=== PATIENT | female | born 1940 | race Caucasian/White ===

== ENCOUNTER 2020-09-24 09:26 | Emergency (ER) | payer MEDICARE, MEDICAID, SELFPAY ==
[2020-09-24 09:53] VITALS: BP 153/70; PULSE 72; RESP 16; TEMP 36.8; O2SAT 97; BMI 20.2
--- NOTE | 2020-09-24 09:56 | XR_ITS ---
EXAMINATION: XR FOOT, RIGHT CLINICAL INFORMATION: Heel pain. COMPARISON: None TECHNIQUE: AP, lateral, and oblique views of the right foot. FINDINGS: There are large calcaneal heel enthesophytes. No retrocalcaneal spurs seen. The ankle mortise and subtalar joints are normal. There is a subtle lucency traversing the navicular bone consistent with nondisplaced fracture. Subtle lucency seen traversing the calcaneum likely questionable calcaneal fracture. The intertarsal and tarsometatarsal joint space is maintained. There is small spur along the tarsonavicular joint. The soft tissues are normal. XR/XR foot RT min 3V IMPRESSION: Moderate to large calcaneal heel enthesophytes. There is a nondisplaced fracture involving the cuboid bone. The ankle mortise and subtalar joints are normal.
--- NOTE | 2020-09-24 11:00 | CT_ITS ---
EXAMINATION: CT FOOT WITHOUT CONTRAST, RIGHT CLINICAL INFORMATION: Question fractures on plain film navicular, calcaneus. COMPARISON: Radiographs right foot 09/24/2020 TECHNIQUE: Noncontrast CT through the right ankle and foot is performed. Additional reformatted images are generated on the CT workstation and uploaded to PACS. This CT examination was performed using dose optimization techniques as appropriate, variously including the following: *Automated exposure control *Adjustment of mA and/or kV according to patient size (this includes techniques or standardized protocols for targeted exams where dose is matched to indication/reason for exam; i.e. extremities or head) *Use of iterative reconstruction technique DLP: 365 mGy-cm FINDINGS: Exam is limited by some motion artifact. The malleoli are intact and the ankle mortise is symmetric. The talar dome shows no osteochondral lesion. The subtalar joint and subtalar facets are unremarkable. There are bulky posterior and plantar calcaneal spurs. The retrocalcaneal recess is preserved. There is some blurring/motion artifact mid foot. Accentuated trabecular marking present superior aspect tarsal navicular. Nondisplaced fracture cannot be completely excluded. There is no adjacent soft tissue swelling. Recommend correlation with patient's symptoms and clinical exam. The tarsal metatarsal articulations appear in alignment. No Lisfranc subluxation or visible fracture. There is accentuated trabecular markings head first metatarsal without cortical disruption to suggest fracture. CT/CT foot RT wo con IMPRESSION: 1. Probable accentuated trabecular markings superior aspect tarsal navicular. No adjacent soft tissue swelling. Nondisplaced fracture cannot be completely excluded. Recommend correlation with patient's symptoms and clinical exam. 2. Bulky calcaneal spurring. Subtalar joint unremarkable. No calcaneal fracture.
--- NOTE | 2020-09-24 11:01 | ED_ITS ---
HPI - Extremity Injury (Lower) General Chief Complaint: Extremity Injury, Lower Stated Complaint: heel pain Time Seen by Provider: 09/24/20 09:56 Source: family Mode of arrival: wheelchair History of Present Illness HPI Narrative: 80-year-old female with past medical history of diabetes, hyperlipidemia, hypertension, CVA, wheelchair bound, brought to ED by for right heel pain/bruising x1 week. History obtained from son, per son patient hit heel on wheelchair 1 week ago, and has been complaining of pain since. Of note son reports patient with a few prior falls at home with [employer], falling from standing, no fall from height, no head trauma or LOC. Son denies pain/injury to other area. MD complaint: foot injury Related Data Home Medications Medication Instructions Recorded Confirmed amlodipine 2.5 mg tablet 2.5 mg PO DAILY 08/20/20 08/20/20 aspirin 81 mg tablet,delayed 81 mg PO DAILY 08/20/20 08/20/20 release atorvastatin 40 mg tablet mg PO 08/20/20 08/20/20 cetirizine 10 mg tablet 10 mg PO DAILY PRN 08/20/20 08/20/20 glipizide 2.5 mg tablet, extended 2.5 mg PO DAILY 08/20/20 08/20/20 release 24 hr metoprolol succinate 100 mg 150 mg PO DAILY 08/20/20 08/20/20 tablet,extended release 24 hr mirabegron 25 mg tablet,extended 25 mg PO DAILY 08/20/20 08/20/20 release 24 hr miscellaneous medical supply 1 ea MISCELLANEOUS ea 09/09/20 Previous Rx's Medication Instructions Recorded diaper,brief,adult,disposable #14 ea 09/21/20 miscellaneous medical supply 1 ea MISCELLANEOUS DAILY 30 Days 09/21/20 #3 ea Allergies Allergy/AdvReac Type Severity Reaction Status Date / Time No Known Allergies Allergy Unverified 06/04/20 19:28 [No Known Allergies*] Review of Systems Review of Systems: Constitutional: No Weight loss, No Fever, No Chills Gastrointestinal: No Nausea, No Vomiting, No Abdominal pain Musculoskeletal: +righht heel pain, No Myalgias, + right heel swelling Skin: +bruising to heel Neuro: No head trauma, no LOC Review of systems limited due to history obtained from Son Yes all other systems are reviewed and are negative [facility] Past Medical History Source: obtained from family Medical History (Updated 09/24/20 @ 15:50 by TISHA Aguirre) Diabetes High cholesterol Hypertension Stroke Social History Social History Advance Directives: No Advance Directives Information Provided: Yes Physical Exam Vital Signs: Vital Signs: Last Vital Signs Temp 97.0 F 09/24/20 12:47 Pulse 75 09/24/20 12:47 Resp 14 09/24/20 12:47 BP 148/80 H 09/24/20 12:47 Pulse Ox 97 09/24/20 12:47 Body Mass Index 20.2 Const: General: cooperative and healthy appearing Limitations: physical limitations and wheelchair HENMT: Head: Yes normal to inspection Ears: hearing grossly normal bilaterally General nose exam: Normal external nose present Face and sinus: Yes normal facial exam Eyes: General: appearance normal, both eyes and all related structures EOM: EOMs intact bilaterally Neck: Neck: Yes normal visual inspection Resp: Effort & Inspection: normal respiratory effort, no stridor and not tachypneic Cardio: Rate: regular rate Peripheral pulses: dorsalis pedis present GI: Inspection: Yes normal to inspection Palpation (GI): Soft to palpation and nontender Back/Spine/Pelvis: Other: No midline cervical/thoracic/lumbar spinous tenderness Skin: Rashes: no rashes Extrem: Other: Right heel with notable swelling/ecchymosis vs blood blister. No fluctuance or induration. Tender to palpation. Neurovascular intact. No appreciable deformity Course Course Course Narrative: * X-ray showing moderate to large calcaneal heel enthesophytes, nondisplaced fracture involving the cuboid bone, and questionable calcaneal fracture > will obtain dry CT foot for further evaluation -1350--CT showing:CT foot RT wo con IMPRESSION: 1. Probable accentuated trabecular markings superior aspect tarsal navicular. No adjacent soft tissue swelling. Nondisplaced fracture cannot be completely excluded. Recommend correlation with patient's symptoms and clinical exam. 2. Bulky calcaneal spurring. Subtalar joint unremarkable. No calcaneal fracture * Will place patient in bulky posterior short-leg splint in the ED to follow-up with orthopedics. Patient is to be nonweightbearing on right lower extremity. This was discussed with son, patient has wheelchair at home/does not normally ambulate MDM - Extremity Injury (Lower) MDM Narrative Medical decision making narrative: 80-year-old female with past medical history of diabetes, hyperlipidemia, hypertension, CVA, wheelchair bound, brought to ED by for right heel pain/bruising x1 week. On exam VSS, NAD, right heel with notable swelling/yellow ecchymosis/blood blister. Concern for underlying fracture vs pressure ulcer vs ?Osteo. Low concern for abscess Plan: X-ray, reassess Discharge Plan Discharge Clinical Impression: Fx navicular, foot-closed Qualifiers: Encounter type: initial encounter Fracture alignment: nondisplaced Laterality: right Qualified Code(s): S92.254A - Nondisplaced fracture of navicular [scaphoid] of right foot, initial encounter for closed fracture Patient Disposition: Home, Self-Care Instructions: Foot Fracture in Adults (ED) Prescriptions: No Action (DME) diaper,brief,adult,disposable Misc See Rx Instructions .ROUTE .MEDSUPPLY Qty: 14 RF: 0 miscellaneous medical supply Misc 1 ea miscellaneous DAILY 30 Days Qty: 3 RF: 0 amlodipine 2.5 mg tablet 2.5 mg PO DAILY RF: 0 aspirin 81 mg tablet,delayed release (DR/EC) 81 mg PO DAILY RF: 0 atorvastatin 40 mg tablet PO RF: 0 cetirizine 10 mg tablet 10 mg PO DAILY PRN (Reason: allergies) RF: 0 glipizide 2.5 mg tablet extended release 24hr 2.5 mg PO DAILY RF: 0 metoprolol succinate 100 mg tablet extended release 24 hr 150 mg PO DAILY RF: 0 mirabegron 25 mg tablet extended release 24 hr 25 mg PO DAILY RF: 0 Referrals: Dominick Gupta MD [Physician] - 1 week Iesha Smith PA [[facility]] - 1 week
[2020-09-24 12:47] VITALS: BP 148/80; PULSE 75; RESP 14; TEMP 36.1; O2SAT 97
--- NOTE | 2020-09-24 12:49 | PC.NURSE ---
pts son remains at bedside
[2020-09-24] MEDS: Acetaminophen 325 MG TABLET 650 MG PO (14:45)
== END 2020-09-24 16:05 | disposition home or self-care (01) ==
PROVIDERS: Emergency Provider Emergency Medicine Emergency Medical Services; PCP Nurse Practitioner Family
DX: S92.254A Nondisplaced fracture of navicular [scaphoid] of right foot, initial encounter for closed fracture (principal); W01.0XXA Fall on same level from slipping, tripping and stumbling without subsequent striking against object, initial encounter; Z91.81 History of falling; Z99.3 Dependence on wheelchair; Y93.9 Activity, unspecified; Y92.019 Unspecified place in single-family (private) house as the place of occurrence of the external cause; Y99.9 Unspecified external cause status
CPT/HCPCS: 29515; 73630; 73700; 99284

== ENCOUNTER → 2020-10-02 13:22 | Outpatient (BNVA) | payer MEDICARE, MEDICAID, SELFPAY | PROVIDERS: Visit Provider Physician Assistant | DX: S92.901A Unspecified fracture of right foot, initial encounter for closed fracture (principal) | CPT/HCPCS: 99202 ==

== ENCOUNTER 2020-10-27 08:56 | Emergency (ER) | payer MEDICARE, MEDICAID, SELFPAY ==
[2020-10-27] VITALS (13 sets, daily range): BP systolic 114–161; BP diastolic 53–90; PULSE 70–86; RESP 15–21; TEMP 36–36.9; O2SAT 95–99; BMI 16.3
--- NOTE | ~2020-10-27 | XR_ITS ---
EXAMINATION: XR CHEST CLINICAL INFORMATION: Cough. Evaluate for pneumonia. COMPARISON: Previous chest x-ray June 2018 TECHNIQUE: 2 views of the chest were obtained. FINDINGS: The cardiac silhouette is slightly enlarged but stable. The thoracic aorta appears tortuous and may be ectatic but appears unchanged. There are increased central hilar lung markings on the AP view. This is not appreciated on the lateral view and may be related to light film technique. The lungs are otherwise clear. There is no pleural effusion or pneumothorax. There are degenerative changes of the spine. XR/XR chest 2V IMPRESSION: Stable enlargement of the cardiac silhouette and tortuous possibly ectatic thoracic aorta. Increased central lung and hilar markings on the AP view. This is not appreciated on the lateral view and may be related to light film technique.
--- NOTE | 2020-10-27 09:33 | ECG_ITS ---
Test Reason : WOUND CHECK Blood Pressure : / mmHG Vent. Rate : 080 BPM Atrial Rate : 083 BPM P-R Int : 000 ms QRS Dur : 098 ms QT Int : 442 ms P-R-T Axes : 000 -28 263 degrees QTc Int : 509 ms Baseline artifact Likely sinus rhythm Moderate voltage criteria for LVH, may be normal variant Inferior infarct (cited on or before 29-JUN-2018) Cannot rule out Anteroseptal infarct , age undetermined T wave abnormality, consider lateral ischemia Abnormal ECG When compared with ECG of 29-JUN-2018 11:30, No significant changes seen Referred By: Jordana Goetz Electronically Signed By:ROBINSON FABIAN
[2020-10-27 09:51] LABS: OBS Int Ctl Valid YES; OBS1 NEG (NEG)
--- NOTE | 2020-10-27 10:25 | ED.GENADULT ---
HPI - General Adult General Chief complaint: General Medical Stated complaint: abnormal labs Time Seen by Provider: 10/27/20 09:25 Source: family Mode of arrival: wheelchair Limitations: language barrier and altered mental status (confused at baseline ) History of Present Illness HPI narrative: 80-year-old female with a past history of dementia with bowel and bladder incontinence, wheelchair-bound, diabetes, high cholesterol, hypertension, pressure ulcer, stage 4, stroke here with reports of abnormal labs. Per family the patient had labs ordered by the primary care doctor and have these completed on October 23. Called today and referred to the emergency department for low hemoglobin. Per family the patient has unspecified cancer on the blood which was diagnosed about 2 years ago by her primary care doctor at [place]. She has not been seen by anyone else for this and has not followed up on this. She does not take any anticoagulation. Patient able to ride the history. Son tells me that she has not had any black or bloody stools, hematuria or hemoptysis. No previous history of requiring a blood transfusion. Related Data Home Medications Medication Instructions Recorded Confirmed amlodipine 2.5 mg tablet 2.5 mg PO DAILY 08/20/20 10/12/20 aspirin 81 mg tablet,delayed 81 mg PO DAILY 08/20/20 10/12/20 release atorvastatin 40 mg tablet mg PO 08/20/20 10/12/20 cetirizine 10 mg tablet 10 mg PO DAILY PRN 08/20/20 10/12/20 glipizide 2.5 mg tablet, extended 2.5 mg PO DAILY 08/20/20 10/12/20 release 24 hr metoprolol succinate 100 mg 150 mg PO DAILY 08/20/20 10/12/20 tablet,extended release 24 hr Previous Rx's Medication Instructions Recorded miscellaneous medical supply #1 ea 10/06/20 air mattress #1 ea 10/14/20 chloroxylenol 0.5 % topical pads 1 pad TOPICAL .every 4 hours PRN 10/14/20 30 Days #648 ea diaper,brief,adult,disposable #120 ea 10/14/20 disposable gloves #200 ea 10/14/20 food supplemt, lactose-reduced 1 ea PO BID 30 Days #3792 ml 10/14/20 honey 80 % topical gel 1 appl TOPICAL DAILY 30 Days #44 ml 10/14/20 hydrocolloid dressing 6 X 6 #30 ea 10/14/20 incontinence pad, liner, disp #96 ea 10/14/20 miscellaneous medical supply #1 ea 10/14/20 diaper,brief,adult,disposable #56 ea 10/19/20 mirabegron 25 mg tablet,extended 25 mg PO DAILY 90 Days #90 tab 10/20/20 release 24 hr hydrocolloid dressing 6 X 6 #30 ea 10/21/20 Allergies Allergy/AdvReac Type Severity Reaction Status Date / Time No Known Allergies Allergy Verified 10/12/20 16:57 [No Known Allergies*] Review of Systems Review of Systems: Yes Unobtainable due to mental status (confused at baseline ) Neurologic: Denies Abnormal speech present and Reports confusion Psychiatric: Psychiatric: Reports confusion PMFSH Past Medical History Source: old records reviewed and nursing notes reviewed Medical History Dementia Diabetes Dyslipidemia Fecal incontinence Hypertension Malnutrition Pressure ulcer, stage 4 Stroke Ulcer Ulcer of sacral region, stage 3 Urinary incontinence Social History Social History Alcohol intake: former Smoking Status: Never smoker Advance Directives: No Advance Directives Information Provided: No Physical Exam Vital Signs: Vital Signs: Last Vital Signs Temp 98.4 F 10/27/20 15:58 Pulse 70 10/27/20 15:58 Resp 20 10/27/20 15:58 BP 161/77 H 10/27/20 15:58 Pulse Ox 95 10/27/20 14:16 Body Mass Index 16.3 Const: General: comfortable and confusion Orientation/consciousness: confusion Limitations: altered mental status and wheelchair HENMT: Head: Yes normal to inspection Ears: hearing grossly normal bilaterally General nose exam: Normal external nose present Face and sinus: Yes normal facial exam Mouth: Normal oral and palatal mucosa present Throat: Yes posterior oropharynx normal Eyes: General: appearance normal, both eyes and all related structures Pupils: Equal, round and reactive pupils present Neck: Neck: Yes normal visual inspection Chest: Chest palpation & inspection: normal inspection of the chest Resp: Other: Bilateral expiratory wheezes. Effort & Inspection: normal respiratory effort Cardio: Rate: regular rate Rhythm: regular rhythm Peripheral pulses: Peripheral pulses 2+ throughout GI: Inspection: Yes normal to inspection Palpation (GI): Soft to palpation and nontender Auscultation: normal bowel sounds Rectal Exam - Female: visual inspection normal (incontinent of brown stool ) Back/Spine/Pelvis: Thoracic/Lumbar Spine: thoracic and lumbar spine normal to inspection Skin: Other: Sacral wound noted General skin exam: no rashes or lesions noted Neuro: Other: Left hand contracted (unable to assess strength). RUE moves independetely. Left leg 2/5, right leg 4/5 General: confusion and Unable to assess gait Cranial nerves: Yes Equal, round and reactive pupils present Speech: No Abnormal speech present Gait exam (Neuro): Unable to assess gait Extrem: General: Yes normal to inspection Course Course Course Narrative: 80-year-old female sent here for abnormal hemoglobin which was drawn as outpatient. Per family history of unspecified blood cancer. No reports of active bleeding or black or bloody stools. No anticoagulation. Vital signs stable. Patient is confused but this appears to be her baseline per family. Reviewed labs from [facility]. Hemoglobin 6.2. Hematocrit 19.9. Spoke to elana Gibbons who signed blood consent. Plan to repeat labs, check a type and screen, EKG. On exam patient has some wheezing throughout. No concern for COVID from family. Will check chest x-ray and COVID test. 1145-Hgb/HCT 6.3/21.0. 2 units PRBC ordered. Will discuss with hematology. 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 She has no active signs of bleeding in her hemoglobin and hematocrit are stable when compared to her labs 4 days ago. Discussed with family. They do not wish for the patient to be admitted and I am not sure that that would be beneficial for the patient at this time. Plan to transfuse [address] Guevara from Hematology who will follow up outpatient with them. Plan for discharge post PRBC. 1700-Son was updated on plan of care. Sign out to Zully JOHNSON pending repeat CBC post 2nd unit of PRBC. Medical Decision Making Lab Data Result diagrams: 10/27/20 10:34 10/27/20 10:34 Labs: Lab Results 10/27/20 10/27/20 10/27/20 Range/Units 09:38 10:17 10:34 WBC 8.1 (4.8-10.8) X10*3/uL RBC 2.30 L (4.20-5.50) X10*6/uL Hgb 6.3 L* (12.0-16.0) g/dl Hct 21.0 L* (37-47) % MCV 91.3 (80-98) fL MCH 27.4 (27.0-33.0) pg MCHC 30.0 L (31.0-35.0) g/dl RDW 22.7 H (11.0-16.0) % Plt Count 212 (160-400) X10*3/uL MPV 10.1 (9.4-12.3) fL Immature Gran % (Auto) 0.9 H (0.0-0.4) % Neut % (Auto) 51.5 (45-73) % Lymph % (Auto) 43.6 H (20-40) % [place] % (Auto) 3.1 (2-11) % Eos % (Auto) 0.7 (0-4) % Baso % (Auto) 0.2 (0-2) % Lymph # (Auto) 3.5 (1.2-4.9) X10*3/uL [place] # (Auto) 0.3 (0.1-1.2) X10*3/uL Eos # (Auto) 0.1 (0.0-0.4) X10*3/uL Baso # (Auto) 0.0 (0.0-0.2) X10*3/uL Abs Immat Gran (auto) 0.07 H (0.00-0.03) X10*3/uL Absolute Neuts (auto) 4.2 (2.0-8.3) X10*3/uL Absolute Nucleated RBC 0.020 H (0.0-0.012) X10*3/uL Nucleated RBC % (auto) 0.2 (0.0-0.2) /100WBC Smear Tech's Comments VERIFIED PT (10.8-13.0) SEC INR (0.9-1.1) Sodium (135-145) mmol/L Potassium (3.3-5.1) mmol/L Chloride (96-108) mmol/L Carbon Dioxide (22-29) mmol/L Anion Gap (12-20) BUN (9-16) mg/dL Creatinine (0.5-1.4) mg/dL Estim Creat Clear Calc Estimated GFR Random Glucose (60-115) mg/dL Calcium (8.4-10.2) mg/dL Total Bilirubin (0.0-1.0) mg/dL Direct Bilirubin (0.0-0.5) mg/dL AST (5-31) U/L ALT (0-31) U/L Alkaline Phosphatase (39-117) U/L Total Protein (6.5-8.0) g/dL Albumin (3.5-5.0) g/dL Stool Occult Blood NEG (NEG) COVID-19 ([facility]) Negative (Negative) COVID-19 Clin Com See Note Blood Type Antibody Screen Crossmatch 10/27/20 10/27/20 10/27/20 Range/Units 10:34 10:34 11:05 WBC (4.8-10.8) X10*3/uL RBC (4.20-5.50) X10*6/uL Hgb (12.0-16.0) g/dl Hct (37-47) % MCV (80-98) fL MCH (27.0-33.0) pg MCHC (31.0-35.0) g/dl RDW (11.0-16.0) % Plt Count (160-400) X10*3/uL MPV (9.4-12.3) fL Immature Gran % (Auto) (0.0-0.4) % Neut % (Auto) (45-73) % Lymph % (Auto) (20-40) % [place] % (Auto) (2-11) % Eos % (Auto) (0-4) % Baso % (Auto) (0-2) % Lymph # (Auto) (1.2-4.9) X10*3/uL [place] # (Auto) (0.1-1.2) X10*3/uL Eos # (Auto) (0.0-0.4) X10*3/uL Baso # (Auto) (0.0-0.2) X10*3/uL Abs Immat Gran (auto) (0.00-0.03) X10*3/uL Absolute Neuts (auto) (2.0-8.3) X10*3/uL Absolute Nucleated RBC (0.0-0.012) X10*3/uL Nucleated RBC % (auto) (0.0-0.2) /100WBC Smear Tech's Comments PT 15.9 H (10.8-13.0) SEC INR 1.3 H (0.9-1.1) Sodium 133 L (135-145) mmol/L Potassium 3.6 (3.3-5.1) mmol/L Chloride 104 (96-108) mmol/L Carbon Dioxide 26 (22-29) mmol/L Anion Gap 7 L (12-20) BUN 20 H (9-16) mg/dL Creatinine 0.87 (0.5-1.4) mg/dL Estim Creat Clear Calc 32.0 Estimated GFR > 60 Random Glucose 132 H (60-115) mg/dL Calcium 7.7 L (8.4-10.2) mg/dL Total Bilirubin 0.4 (0.0-1.0) mg/dL Direct Bilirubin 0.3 (0.0-0.5) mg/dL AST 50 H (5-31) U/L ALT 46 H (0-31) U/L Alkaline Phosphatase 208 H (39-117) U/L Total Protein 11.3 H (6.5-8.0) g/dL Albumin 2.2 L (3.5-5.0) g/dL Stool Occult Blood (NEG) COVID-19 ([facility]) (Negative) COVID-19 Clin Com Blood Type O Positive Antibody Screen NEGATIVE Crossmatch See Detail ECG Data Attestation: I personally reviewed and interpreted this ECG as follows: Interpretation: Artifact present unable to interpret all apsects of EKG. No ST changes. QT prolonged 509 Discharge Plan Discharge Clinical Impression: Anemia Patient Disposition: Home, Self-Care Instructions: Anemia (ED) Additional Instructions: Your mom's blood counts today were very low. She received 2 units of blood and her repeat counts were improved. She will need to follow-up outpatient with a urban planning teacher. I have spoken to Dr. Guevara and you will need to call her to set up an appointment. She is aware that you will be calling Prescriptions: No Action (DME) miscellaneous medical supply Misc See Rx Instructions .ROUTE .MEDSUPPLY Qty: 1 RF: 0 (DME) hydrocolloid dressing [Comfeel Plus Ulcer Dressing] 6 X 6 bandage See Rx Instructions .ROUTE .MEDSUPPLY Qty: 30 RF: 11 (DME) Briefs, Adult-Extra Large Misc See Rx Instructions .ROUTE .MEDSUPPLY Qty: 56 RF: 3 mirabegron 25 mg tablet extended release 24 hr 25 mg PO DAILY 90 Days Qty: 90 RF: 1 (DME) hydrocolloid dressing [Aquacel Extra] 6 X 6 bandage See Rx Instructions .ROUTE .MEDSUPPLY Qty: 30 RF: 11 MediHoney (honey) 80 % gel 1 appl topical DAILY 30 Days Qty: 44 RF: 6 (DME) Comfort Shield Adult Diaper Misc See Rx Instructions .ROUTE .MEDSUPPLY Qty: 120 RF: 11 (DME) incontinence pad, liner, disp Pad See Rx Instructions .ROUTE .MEDSUPPLY Qty: 96 RF: 11 (DME) disposable gloves [Biobrane Gloves Large] Misc See Rx Instructions .ROUTE .MEDSUPPLY Qty: 200 RF: 11 Sween Prep Wipes 0.5 % pads, medicated 1 pad topical .every 4 hours PRN (Reason: cleaning) 30 Days Qty: 648 RF: 11 (DME) miscellaneous medical supply Misc See Rx Instructions .ROUTE .MEDSUPPLY Qty: 1 RF: 0 (DME) air mattress twin See Rx Instructions .Route .MEDSUPPLY Qty: 1 RF: 0 Ensure Liquid 1 ea PO BID 30 Days Qty: 3792 RF: 11 amlodipine 2.5 mg tablet 2.5 mg PO DAILY RF: 0 aspirin 81 mg tablet,delayed release (DR/EC) 81 mg PO DAILY RF: 0 atorvastatin 40 mg tablet PO RF: 0 cetirizine 10 mg tablet 10 mg PO DAILY PRN (Reason: allergies) RF: 0 glipizide 2.5 mg tablet extended release 24hr 2.5 mg PO DAILY RF: 0 metoprolol succinate 100 mg tablet extended release 24 hr 150 mg PO DAILY RF: 0 Referrals: Chacorta Guevara MD [Physician] - 2 days Print Language: Ukrainian
[2020-10-27 10:40] LABS: COVID-19 Test Negative (Negative)
[2020-10-27 10:41] LABS: Basophils Percent Auto 0.2 % (0-2); Eosinophils Absolute Auto 0.1 X10*3/uL (0.0-0.4); Eosinophils Percent Auto 0.7 % (0-4); Imm Gran Abs Auto 0.07 X10*3/uL (0.00-0.03); Imm Gran Pct Auto 0.9 % (0.0-0.4); Lymphocytes Absolute Auto 3.5 X10*3/uL (1.2-4.9); Lymphocytes Percent Auto 43.6 % (20-40); MANUAL DIFF FLAG SCAN; Mean Corpuscular Hemoglobin 27.4 pg (27.0-33.0); Mean Corpuscular Volume 91.3 fL (80-98); Mean Platelet Volume 10.1 fL (9.4-12.3); Monocytes Absolute Auto 0.3 X10*3/uL (0.1-1.2); Monocytes Percent Auto 3.1 % (2-11); NRBC Pct Auto 0.2 /100WBC (0.0-0.2); Neutrophils Absolute Auto 4.2 X10*3/uL (2.0-8.3); Neutrophils Percent Auto 51.5 % (45-73); Platelet Count 212 X10*3/uL (160-400); Red Cell Distribution Width 22.7 % (11.0-16.0); SCAN SMEAR FLAG 1; White Blood Count 8.1 X10*3/uL (4.8-10.8)
[2020-10-27 10:43] LABS: Hemoglobin 6.3 g/dl (12.0-16.0)
[2020-10-27 10:49] LABS: INTERNATIONAL NORM RATIO 1.3 (0.9-1.1); Prothrombin Time 15.9 SEC (10.8-13.0)
[2020-10-27 11:08] LABS: Alanine Aminotransferase 46 U/L (0-31); Albumin Level 2.2 g/dL (3.5-5.0); Alkaline Phosphatase 208 U/L (39-117); Anion Gap 7 (12-20); Aspartate Amino Transferase 50 U/L (5-31); Bilirubin Direct 0.3 mg/dL (0.0-0.5); Bilirubin Total 0.4 mg/dL (0.0-1.0); Blood Urea Nitrogen 20 mg/dL (9-16); Calcium 7.7 mg/dL (8.4-10.2); Carbon Dioxide 26 mmol/L (22-29); Chloride 104 mmol/L (96-108); Estimated Glomerular Filt Rate > 60; Glucose Random 132 mg/dL (60-115); Potassium 3.6 mmol/L (3.3-5.1); Sodium 133 mmol/L (135-145)
[2020-10-27 11:14] LABS: SLIDE REVIEW VERIFIED
[2020-10-27 11:17] LABS: Total Protein 11.3 g/dL (6.5-8.0)
--- NOTE | 2020-10-27 12:55 | PC.NURSE ---
First unit of blood transfusing. Pt's VS. Blood infusing with no difficulties.
[2020-10-27] MEDS: Furosemide 20 MG/2 ML VIAL IVPUSH (14:57)
[2020-10-27 18:20] LABS: Basophils Percent Auto 0.1 % (0-2); Eosinophils Absolute Auto 0.1 X10*3/uL (0.0-0.4); Eosinophils Percent Auto 0.8 % (0-4); Hematocrit 30.9 % (37-47); Hemoglobin 9.9 g/dl (12.0-16.0); Imm Gran Abs Auto 0.11 X10*3/uL (0.00-0.03); Imm Gran Pct Auto 1.3 % (0.0-0.4); Lymphocytes Absolute Auto 4.2 X10*3/uL (1.2-4.9); Lymphocytes Percent Auto 48.2 % (20-40); MANUAL DIFF FLAG SCAN; Mean Corpuscular Hemoglobin 29.6 pg (27.0-33.0); Mean Corpuscular Volume 92.2 fL (80-98); Mean Platelet Volume 9.5 fL (9.4-12.3); Monocytes Absolute Auto 0.3 X10*3/uL (0.1-1.2); Monocytes Percent Auto 3.1 % (2-11); NRBC Pct Auto 0.6 /100WBC (0.0-0.2); Neutrophils Percent Auto 46.5 % (45-73); Platelet Count 177 X10*3/uL (160-400); Red Blood Count 3.35 X10*6/uL (4.20-5.50); Red Cell Distribution Width 17.8 % (11.0-16.0); SCAN SMEAR FLAG 1; White Blood Count 8.7 X10*3/uL (4.8-10.8)
== END 2020-10-27 21:53 | disposition home or self-care (01) ==
PROVIDERS: Nurse Practitioner Family; Emergency Provider Emergency Medicine Emergency Medical Services; PCP Internal Medicine
DX: D64.9 Anemia, unspecified (principal); R79.89 Other specified abnormal findings of blood chemistry; I10 Essential (primary) hypertension; R06.2 Wheezing; E78.00 Pure hypercholesterolemia, unspecified; Z20.822 Contact with and (suspected) exposure to COVID-19; Z79.899 Other long term (current) drug therapy
CPT/HCPCS: 36415; 36430; 71046; 80048; 80076; 82272; 85025; 85060; 85610; 86850; 86900; 86901; 86923; 87635; 93005; 99284; 99285; J1940; P9016

== ENCOUNTER 2020-11-08 10:47 | Emergency (ER) | payer MEDICARE, MEDICAID, SELFPAY ==
[2020-11-08 11:05] VITALS: BP 129/64; BP 130/68; PULSE 83; PULSE 92; RESP 16; TEMP 36.9; O2SAT 95; O2SAT 96; BMI 14.9
--- NOTE | 2020-11-08 13:19 | ED.GENADULT ---
HPI - General Adult General Chief complaint: Skin/Abscess/Foreign Body Stated complaint: BED SORES Time Seen by Provider: 11/08/20 11:30 Source: EMS Mode of arrival: EMS Limitations: other (Dementia) History of Present Illness HPI narrative: This is a 72-year-old female with past medical history as noted below including history of dementia, diabetes, dyslipidemia, status post CVA, B/B incontinence, hypertension, with chronic sacral region pressure ulcer for whom her SEARCH ENGINE OPTIMIZATION CONSULTANT called EMS due to medication running out of her wound care dressing and would like refills for these. Also reports that she has seen her PCP for this and awaiting wound care appointment which is on the but would like to move this sooner. Otherwise reports she is at baseline mentation and no other medical complaints at this time. Evans Murphy [phone] Related Data Home Medications Medication Instructions Recorded Confirmed amlodipine 2.5 mg tablet 2.5 mg PO DAILY 08/20/20 10/12/20 aspirin 81 mg tablet,delayed 81 mg PO DAILY 08/20/20 10/12/20 release atorvastatin 40 mg tablet mg PO 08/20/20 10/12/20 cetirizine 10 mg tablet 10 mg PO DAILY PRN 08/20/20 10/12/20 glipizide 2.5 mg tablet, extended 2.5 mg PO DAILY 08/20/20 10/12/20 release 24 hr metoprolol succinate 100 mg 150 mg PO DAILY 08/20/20 10/12/20 tablet,extended release 24 hr Previous Rx's Medication Instructions Recorded miscellaneous medical supply #1 ea 10/06/20 air mattress #1 ea 10/14/20 chloroxylenol 0.5 % topical pads 1 pad TOPICAL .every 4 hours PRN 10/14/20 30 Days #648 ea diaper,brief,adult,disposable #120 ea 10/14/20 disposable gloves #200 ea 10/14/20 food supplemt, lactose-reduced 1 ea PO BID 30 Days #3792 ml 10/14/20 honey 80 % topical gel 1 appl TOPICAL DAILY 30 Days #44 ml 10/14/20 hydrocolloid dressing 6 X 6 #30 ea 10/14/20 incontinence pad, liner, disp #96 ea 10/14/20 miscellaneous medical supply #1 ea 10/14/20 diaper,brief,adult,disposable #56 ea 10/19/20 mirabegron 25 mg tablet,extended 25 mg PO DAILY 90 Days #90 tab 10/20/20 release 24 hr hydrocolloid dressing 6 X 6 #30 ea 10/21/20 Allergies Allergy/AdvReac Type Severity Reaction Status Date / Time No Known Allergies Allergy Verified 10/12/20 16:57 [No Known Allergies*] Review of Systems Review of Systems: At her baseline mentation per SEARCH ENGINE OPTIMIZATION CONSULTANT Review of system limited secondary to her dementia Yes Unobtainable due to mental condition PMFSH Past Medical History Medical History Dementia Diabetes Dyslipidemia Fecal incontinence Hypertension Malnutrition Pressure ulcer, stage 4 Stroke Ulcer Ulcer of sacral region, stage 3 Urinary incontinence Social History Social History Alcohol intake: never Smoking Status: Never smoker Use of substances other than those prescribed or required for medical reasons: No Advance Directives: No Advance Directives Information Provided: No Physical Exam Vital Signs: Vital Signs: Last Vital Signs Temp 98.4 F 11/08/20 11:05 Pulse 83 11/08/20 11:05 Resp 16 11/08/20 11:05 BP 129/64 11/08/20 11:05 Pulse Ox 95 11/08/20 11:05 Body Mass Index 14.9 Reviewed Const: Other: Frail, elderly General: cooperative; No acute distress or intoxicated appearing Nutritional Appearance: average body habitus Orientation/consciousness: patient oriented x3 HENMT: Head: Yes normal to inspection Ears: hearing grossly normal bilaterally Eyes: General: appearance normal, both eyes and all related structures Visual Moran: normal visual moran by confrontation Neck: Neck: Yes normal visual inspection, No positive Brudzinski's sign, No positive Kernig's sign and No tender Thyroid: Thyroid normal Chest: Chest palpation & inspection: normal inspection of the chest Resp: Effort & Inspection: normal respiratory effort Auscultation: clear to auscultation bilaterally Cardio: Jugular venous distension: no JVD Rate: regular rate Rhythm: regular rhythm Heart sounds: S1 normal heart sound present and S2 normal heart sound present GI: Inspection: Yes normal to inspection Percussion: Yes normal to percussion Auscultation: normal bowel sounds : General: Yes no CVA tenderness Back/Spine/Pelvis: Back: no CVA tenderness Back/spine/pelvis image: 1. Circular pressure ulcer with dressing in place removed revealing states for pressure ulcer with granulated tissue to the margins. No acute erythema, purulent discharge. No bony prominences visible. Skin: General skin exam: no rashes or lesions noted Neuro: General: patient oriented x3 Extrem: General: Yes normal to inspection Course Course Course Narrative: Offers no acute medical complaints provided refill for the wound care products, I did get Case Management involved given the request of the SEARCH ENGINE OPTIMIZATION CONSULTANT and family who was able to make referral for [facility]NA, advised to follow-up with [facility] will call tomorrow to see if they can get in sooner. Otherwise at this time the wound does not look acutely infected no other medical complaints offered and vitals are stable thus will defer any further workup. SEARCH ENGINE OPTIMIZATION CONSULTANT as well family comfortable plan. Stable for discharge. Discharge Plan Discharge Clinical Impression: Ulcer of sacral region, stage 4, Medication refill, Need for licensed master social worker intervention Patient Disposition: Home, Self-Care Instructions: How to Prevent Pressure Injuries (ED), Chronic Wounds (ED) Additional Instructions: Wet to dry dressing Change dressings daily nursing services manager from the hospital will touch base with you regarding increasing services at home with VNA Follow-up with the wound care center in the next 2-3 days call Monday for an appointment Return if any concerns or worsening symptoms Thank you Prescriptions: No Action (DME) miscellaneous medical supply Misc See Rx Instructions .ROUTE .MEDSUPPLY Qty: 1 RF: 0 (DME) hydrocolloid dressing [Comfeel Plus Ulcer Dressing] 6 X 6 bandage See Rx Instructions .ROUTE .MEDSUPPLY Qty: 30 RF: 11 (DME) Briefs, Adult-Extra Large Misc See Rx Instructions .ROUTE .MEDSUPPLY Qty: 56 RF: 3 mirabegron 25 mg tablet extended release 24 hr 25 mg PO DAILY 90 Days Qty: 90 RF: 1 (DME) hydrocolloid dressing [Aquacel Extra] 6 X 6 bandage See Rx Instructions .ROUTE .MEDSUPPLY Qty: 30 RF: 11 MediHoney (honey) 80 % gel 1 appl topical DAILY 30 Days Qty: 44 RF: 6 (DME) Comfort Shield Adult Diaper Misc See Rx Instructions .ROUTE .MEDSUPPLY Qty: 120 RF: 11 (DME) incontinence pad, liner, disp Pad See Rx Instructions .ROUTE .MEDSUPPLY Qty: 96 RF: 11 (DME) disposable gloves [Biobrane Gloves Large] Misc See Rx Instructions .ROUTE .MEDSUPPLY Qty: 200 RF: 11 Sween Prep Wipes 0.5 % pads, medicated 1 pad topical .every 4 hours PRN (Reason: cleaning) 30 Days Qty: 648 RF: 11 (DME) miscellaneous medical supply Misc See Rx Instructions .ROUTE .MEDSUPPLY Qty: 1 RF: 0 (DME) air mattress twin See Rx Instructions .Route .MEDSUPPLY Qty: 1 RF: 0 Ensure Liquid 1 ea PO BID 30 Days Qty: 3792 RF: 11 amlodipine 2.5 mg tablet 2.5 mg PO DAILY RF: 0 aspirin 81 mg tablet,delayed release (DR/EC) 81 mg PO DAILY RF: 0 atorvastatin 40 mg tablet PO RF: 0 cetirizine 10 mg tablet 10 mg PO DAILY PRN (Reason: allergies) RF: 0 glipizide 2.5 mg tablet extended release 24hr 2.5 mg PO DAILY RF: 0 metoprolol succinate 100 mg tablet extended release 24 hr 150 mg PO DAILY RF: 0 Referrals: [facility] [Outside] - 2 days Yoseph Ramesh NP [Emergency Midlevel Provider] - 2 days Michelle Clark MD [Primary Care Provider] - 2 days Interventions: ED Discharge Assessment Last Done: 11/08/20 13:38 Discharge Date/Time: 11/08/20 13:38
== END 2020-11-08 13:38 | disposition home or self-care (01) ==
PROVIDERS: Emergency Provider Emergency Medicine; PCP Internal Medicine
DX: L98.429 Non-pressure chronic ulcer of back with unspecified severity (principal); F03.90 Unspecified dementia, unspecified severity, without behavioral disturbance, psychotic disturbance, mood disturbance, and anxiety; I10 Essential (primary) hypertension; M54.5 Low back pain; Z76.0 Encounter for issue of repeat prescription; Z79.899 Other long term (current) drug therapy
CPT/HCPCS: 99284

== ENCOUNTER 2020-11-11 16:17 | Inpatient (IN) | payer MEDICARE, MEDICAID, SELFPAY ==
[2020-11-11] VITALS (7 sets, daily range): BP systolic 100–129; BP diastolic 52–70; PULSE 81–119; RESP 20–40; TEMP 36.3–39.6; O2SAT 95–97; BMI 16.9; BMI 18.4
--- NOTE | ~2020-11-11 | XR_ITS ---
EXAMINATION: XR CHEST CLINICAL INFORMATION: Shortness of breath COMPARISON: 11/11/2020 TECHNIQUE: Frontal view of the chest was obtained. FINDINGS: Cardiac leads overlie the chest. The lungs are well expanded. Mild interstitial prominence noted which may be chronic. No dense consolidation. No edema. No pleural effusion. No pneumothorax. The cardiomediastinal silhouette is unchanged, with a calcified aorta. Degenerative changes throughout the spine. Degenerative changes of the shoulders. XR/XR chest 1V IMPRESSION: Mild interstitial prominence which may be chronic, similar to previous imaging. No consolidation.
--- NOTE | ~2020-11-11 | CT_ITS ---
EXAMINATION: CT ABDOMEN AND PELVIS WITHOUT CONTRAST CLINICAL INFORMATION: Suspected diffuse abdominal pain COMPARISON: None TECHNIQUE: Multidetector volumetric imaging was performed from the superior aspect of the liver through the pubic symphysis. Sagittal and coronal reformatted images were obtained on the technologist's workstation. Examination limited secondary to motion artifact. This CT examination was performed using dose optimization techniques as appropriate, variously including the following: *Automated exposure control *Adjustment of mA and/or kV according to patient size (this includes techniques or standardized protocols for targeted exams where dose is matched to indication/reason for exam; i.e. extremities or head) *Use of iterative reconstruction technique DLP: 440 mGy-cm FINDINGS: Visualized lung bases demonstrate mild dependent atelectasis. The liver is normal in size but demonstrates diffusely decreased attenuation. There is a 1.7 cm gallstone within an otherwise unremarkable appearing gallbladder. The pancreas, spleen and adrenal glands are unremarkable. Symmetrically sized kidneys. No renal calculi or hydronephrosis bilaterally. The stomach is decompressed and therefore not accurately evaluated. Normal caliber loops of small and large bowel. There is diffuse circumferential thickening of the rectum suggesting proctitis. Soft tissue defect is present posterior to the coccyx with associated subcutaneous air. There is subtle cortical irregularity of the posterior coccyx. Soft tissue stranding and subcutaneous air extends primarily inferiorly and to the left of midline, extending at least 4 cm beneath the skin surface. The bladder is decompressed around a Wang catheter and therefore cannot be evaluated. The uterus is mildly prominent for patient age. Nonaneurysmal abdominal aorta which demonstrates moderate to severe atherosclerotic disease. Diffuse osteopenia. Moderate diffuse degenerative changes of the spine. CT/CT abdomen pelvis wo con IMPRESSION: 1. Decubitus ulcer posterior to the coccyx with extension inferior and slightly to the left of midline. There is no well-defined fluid collection present. There is subtle cortical irregularity of the underlying coccyx which raises the possibility for osteomyelitis. 2. Diffuse circumferential thickening of the rectum suggesting proctitis. Clinical correlation recommended. 3. Diffusely decreased liver attenuation suggesting hepatic steatosis. 4. Cholelithiasis.
--- NOTE | ~2020-11-11 | XR_ITS ---
EXAMINATION: XR CHEST CLINICAL INFORMATION: Altered mental status. Cough COMPARISON: 10/27/2020, 06/29/2018 TECHNIQUE: Frontal view of the chest was obtained. FINDINGS: Calcified, tortuous and/or ectatic thoracic aorta again seen. Normal heart size. No focal consolidation or mass. No pleural effusion or pneumothorax. Chronic coarse interstitial prominence. Degenerative changes of the bilateral shoulders including likely calcific tendinitis of the left rotator cuff. Multilevel degenerative changes of the thoracic spine. There is loss of height of several lower thoracic vertebral bodies, similar to prior, age-indeterminate. XR/XR chest 1V IMPRESSION: Chronic coarse interstitial prominence, similar to priors. No new focal consolidation.
--- NOTE | ~2020-11-11 | US_ITS ---
EXAMINATION: US ABDOMEN LIMITED CLINICAL INFORMATION: Elevated LFTs. COMPARISON: CT abdomen pelvis same day TECHNIQUE: Real-time imaging of the right upper quadrant abdominal viscera. FINDINGS: PANCREAS: The pancreas appears unremarkable, without masses or ductal dilatation, with the exception of the tail which is obscured by bowel gas. LIVER: The liver appears mildly enlarged and demonstrates increased echogenicity suggesting hepatic steatosis The liver contour is normal. Parenchymal echogenicity is normal. No focal hepatic lesion. There is no intrahepatic biliary duct dilatation seen. GALLBLADDER: The gallbladder contains multiple calculi that were also seen on the CT scan earlier today. Echogenic bile is present. The gallbladder wall appears slightly thickened at 6 mm. COMMON BILE DUCT: Normal in caliber measuring 0.3 cm in diameter. RIGHT KIDNEY: No hydronephrosis. A subcentimeter mid pole cyst is present. No renal solid calculi or focal parenchymal lesions. The kidney measures 10.2 cm in maximum dimension. FREE FLUID: None. US/US abdomen limited IMPRESSION: Liver appears slightly echogenic suggesting hepatic steatosis. On the CT scan today, the liver is only a couple of Hounsfield units higher in attenuation than the spleen.
--- NOTE | 2020-11-11 16:32 | ECG_ITS ---
Test Reason : TACHYCARDIA Blood Pressure : / mmHG Vent. Rate : 102 BPM Atrial Rate : 102 BPM P-R Int : 120 ms QRS Dur : 074 ms QT Int : 364 ms P-R-T Axes : 027 -22 057 degrees QTc Int : 474 ms Sinus tachycardia with frequent Premature ventricular complexes Possible Left atrial enlargement Left ventricular hypertrophy Abnormal ECG When compared with ECG of 27-OCT-2020 11:13, Minimal criteria for Anteroseptal infarct are no longer Present Premature ventricular complexes are now Present Referred By: Estefania Turner Electronically Signed By:ROSALIE LAURENT MD
--- NOTE | 2020-11-11 16:36 | ED_ITS ---
HPI - General Adult General Chief complaint: Altered Mental Status Stated complaint: altered mental/ difficulty breathing Time Seen by Provider: 11/11/20 16:31 Source: patient and EMS Mode of arrival: EMS Limitations: altered mental status History of Present Illness HPI narrative: Patient comes to the emergency room by EMS. EMS reports that they got a phone call from the patient's LABOR RELATIONS ANALYST for altered mental status. Patient's LABOR RELATIONS ANALYST is new, EMS the LABOR RELATIONS ANALYST had no significant information about the patient, did not know past medical history, stated the patient is altered, but does not know the patient's mental baseline. Patient is known to have dementia. Patient is unable to give any history. Related Data Home Medications Medication Instructions Recorded Confirmed amlodipine 2.5 mg tablet 2.5 mg PO DAILY 08/20/20 11/11/20 aspirin 81 mg tablet,delayed 81 mg PO DAILY 08/20/20 11/11/20 release atorvastatin 40 mg tablet 40 mg PO DAILY 08/20/20 11/11/20 cetirizine 10 mg tablet 10 mg PO DAILY PRN 08/20/20 11/11/20 glipizide 2.5 mg tablet, extended 2.5 mg PO DAILY 08/20/20 11/11/20 release 24 hr metoprolol succinate 100 mg 150 mg PO DAILY 08/20/20 11/11/20 tablet,extended release 24 hr Previous Rx's Medication Instructions Recorded miscellaneous medical supply #1 ea 10/06/20 diaper,brief,adult,disposable #120 ea 10/14/20 disposable gloves #200 ea 10/14/20 honey 80 % topical gel 1 appl TOPICAL DAILY 30 Days #44 ml 10/14/20 hydrocolloid dressing 6 X 6 #30 ea 10/14/20 incontinence pad, liner, disp #96 ea 10/14/20 diaper,brief,adult,disposable #56 ea 10/19/20 mirabegron 25 mg tablet,extended 25 mg PO DAILY 90 Days #90 tab 10/20/20 release 24 hr hydrocolloid dressing 6 X 6 #30 ea 10/21/20 air mattress #1 ea 11/09/20 chloroxylenol 0.5 % topical pads 1 pad TOPICAL .every 4 hours PRN 11/09/20 30 Days #648 ea food supplemt, lactose-reduced 1 ea PO BID 30 Days #3792 ml 11/09/20 miscellaneous medical supply #1 ea 11/09/20 Allergies Allergy/AdvReac Type Severity Reaction Status Date / Time No Known Allergies Allergy Verified 10/12/20 16:57 [No Known Allergies*] Review of Systems Review of Systems: Yes Unobtainable due to mental condition [facility] Past Medical History Medical History Dementia Diabetes Dyslipidemia Fecal incontinence Hypertension Malnutrition Pressure ulcer, stage 4 Stroke Ulcer Ulcer of sacral region, stage 3 Urinary incontinence Social History Social History Alcohol intake: never Smoking Status: Never smoker Use of substances other than those prescribed or required for medical reasons: No Advance Directives: No Advance Directives Information Provided: Yes Physical Exam Vital Signs: Vital Signs: Last Vital Signs Temp 97.9 F 11/11/20 21:04 Pulse 87 11/11/20 21:04 Resp 26 H 11/11/20 21:04 BP 100/54 L 11/11/20 21:04 Pulse Ox 96 11/11/20 21:04 Body Mass Index 16.9 Appearance: Awake, mumbling Eyes: Pupils equal, round and reactive to light. ENT: Pharynx normal. Neck: Normal inspection. Neck supple. No lymph nodes noted. No crepitus CVS: Normal heart rate and rhythm. Pulses normal. Normal S1 and S2 Respiratory: No respiratory distress. Occasionally coughing, Breath sounds normal. No Wheezing. No rales Abdomen: Soft, seems to have significant tenderness in right upper quadrant No rigidity. No distention. good BS x4 Skin: Patient's face and chest cover in eucalyptus appointment. Patient has a large deep pressure ulcer, covered in feces, patient may have fistula from the colon.. Extremities: No lower extremity edema. Right heel unstageable ulcer Neuro: Oriented X 3. No motor deficit. No sensory deficit. Moving all extermities. No slurred speech. Course Course Course Narrative: I spoke to the patient's LABOR RELATIONS ANALYST, who is new to this patient and has no significant knowledge about the patient. She provided me with the phone number of the patient's sons. I was unable to get in touch with her Shai Derik, who usually takes care of the patient. He is currently out of the country. I was able to get in touch with the patient's other son Aj More ([phone]), who lives in [place]. He informed me that the patient does not have a healthcare proxy. Also stated that it is not possible to get in touch with Shai at this time. I spoke to the patient's son regarding her current medical condition, he states that the patient is full code and if surgery is needed, we have his permission to do so. At this time, patient has multiple medical issues that are a priority. I spoke with Dr. Shahid from surgery. Patient will remain NPO, she will be consulting in the morning, patient may need a HIDA scan. Patient's troponin is 109.8, no EKG changes, troponin 2. Pending. I discussed the patient with our hospitalist, patient will be admitted by Medicine and surgery will consult in the morning Medical Decision Making Lab Data Result diagrams: 11/11/20 16:57 11/11/20 16:57 Labs: Lab Results 11/11/20 11/11/20 11/11/20 Range/Units 16:57 16:57 16:57 WBC 7.9 (4.8-10.8) X10*3/uL RBC 3.17 L (4.20-5.50) X10*6/uL Hgb 9.2 L (12.0-16.0) g/dl Hct 29.4 L (37-47) % MCV 92.7 (80-98) fL MCH 29.0 (27.0-33.0) pg MCHC 31.3 (31.0-35.0) g/dl RDW 19.7 H (11.0-16.0) % Plt Count 140 L (160-400) X10*3/uL MPV 11.2 (9.4-12.3) fL Immature Gran % (Auto) Cancelled Neut % (Auto) Cancelled Lymph % (Auto) Cancelled [place] % (Auto) Cancelled Eos % (Auto) Cancelled Baso % (Auto) Cancelled Lymph # (Auto) Cancelled [place] # (Auto) Cancelled Eos # (Auto) Cancelled Baso # (Auto) Cancelled Abs Immat Gran (auto) Cancelled Absolute Neuts (auto) Cancelled Absolute Nucleated RBC 0.070 H (0.0-0.012) X10*3/uL Nucleated RBC % (auto) 0.9 H (0.0-0.2) /100WBC Neutrophils % (Manual) 80 H (45-73) % Band Neutrophils % 11 H (3-5) % Lymphocytes % (Manual) 1 L (20-40) % Atypical Lymphs % (Man) 2 (0-6) % Monocytes % (Manual) 6 (2-11) % Abs Neuts (Manual) 7.2 (2.2-7.9) X10*3/uL Lymphocytes # (Manual) 0.1 L (0.6-4.8) X10*3/uL Atyp Lymphs # (Manual) 0.2 x10*3/uL Monocytes # (Manual) 0.5 (0.0-1.2) X10*3/uL Nucleated RBCs 3 H (0-0) /100WBC Platelet Estimate SLIGHTLY DECREASED (NORMAL) Plt Morphology Comment NORMAL RBC Morphology NORMAL PT 17.6 H (10.8-13.0) SEC INR 1.5 H (0.9-1.1) ABG pH (7.35-7.45) ABG pCO2 (32-45) mmHg ABG pO2 (83-108) mmHg ABG HCO3 (22-26) mmol/L ABG O2 Saturation ABG Base Excess Oxygen Given Sodium 135 (135-145) mmol/L Potassium 4.0 (3.3-5.1) mmol/L Chloride 105 (96-108) mmol/L Carbon Dioxide 10 L* D (22-29) mmol/L Anion Gap 24 H (12-20) BUN 87 H* D (9-16) mg/dL Creatinine 3.94 H (0.5-1.4) mg/dL Estim Creat Clear Calc 7.1 Estimated GFR 11 POC Glucose (60-115) mg/dL Random Glucose 114 (60-115) mg/dL Lactic Acid (0.5-2.0) mmol/L Lactic Acid Fup @ 2Hr (0.5-2.0) mmol/L Calcium 7.6 L (8.4-10.2) mg/dL Total Bilirubin 1.7 H (0.0-1.0) mg/dL Direct Bilirubin 1.4 H (0.0-0.5) mg/dL AST 143 H (5-31) U/L ALT 123 H (0-31) U/L Alkaline Phosphatase 471 H D (39-117) U/L Troponin I High Sens (<3.5-17.0) ng/L Total Protein 11.2 H (6.5-8.0) g/dL Albumin 1.9 L (3.5-5.0) g/dL Lipase 91 H (8-78) U/L Urine Color Urine Appearance Urine pH (5.0-8.0) Ur Specific [place] (1.005-1.025) Urine Protein (NEG-TRACE) MG/DL Urine Glucose (UA) (NEG) MG/DL Urine Ketones (NEG) MG/DL Urine Blood (NEG) Urine Nitrite (NEG) Ur Leukocyte Esterase (NEG) Urine RBC (0) /HPF Urine WBC (0-4) /HPF Ur Squamous Epith Cells /LPF Urine Bacteria /LPF Salicylates (15-30) mg/dL Acetaminophen (<30) mcg/mL Ethyl Alcohol mg/dL Coronavirus (PCR) (Negative) Influenza Type A (PCR) (Negative) Influenza Type B (PCR) (Negative) RSV RNA Qual (PCR) (Negative) 11/11/20 11/11/20 11/11/20 Range/Units 16:57 16:57 17:52 WBC (4.8-10.8) X10*3/uL RBC (4.20-5.50) X10*6/uL Hgb (12.0-16.0) g/dl Hct (37-47) % MCV (80-98) fL MCH (27.0-33.0) pg MCHC (31.0-35.0) g/dl RDW (11.0-16.0) % Plt Count (160-400) X10*3/uL MPV (9.4-12.3) fL Immature Gran % (Auto) Neut % (Auto) Lymph % (Auto) [place] % (Auto) Eos % (Auto) Baso % (Auto) Lymph # (Auto) [place] # (Auto) Eos # (Auto) Baso # (Auto) Abs Immat Gran (auto) Absolute Neuts (auto) Absolute Nucleated RBC (0.0-0.012) X10*3/uL Nucleated RBC % (auto) (0.0-0.2) /100WBC Neutrophils % (Manual) (45-73) % Band Neutrophils % (3-5) % Lymphocytes % (Manual) (20-40) % Atypical Lymphs % (Man) (0-6) % Monocytes % (Manual) (2-11) % Abs Neuts (Manual) (2.2-7.9) X10*3/uL Lymphocytes # (Manual) (0.6-4.8) X10*3/uL Atyp Lymphs # (Manual) x10*3/uL Monocytes # (Manual) (0.0-1.2) X10*3/uL Nucleated RBCs (0-0) /100WBC Platelet Estimate (NORMAL) Plt Morphology Comment RBC Morphology PT (10.8-13.0) SEC INR (0.9-1.1) ABG pH (7.35-7.45) ABG pCO2 (32-45) mmHg ABG pO2 (83-108) mmHg ABG HCO3 (22-26) mmol/L ABG O2 Saturation ABG Base Excess Oxygen Given Sodium (135-145) mmol/L Potassium (3.3-5.1) mmol/L Chloride (96-108) mmol/L Carbon Dioxide (22-29) mmol/L Anion Gap (12-20) BUN (9-16) mg/dL Creatinine (0.5-1.4) mg/dL Estim Creat Clear Calc Estimated GFR POC Glucose (60-115) mg/dL Random Glucose (60-115) mg/dL Lactic Acid 10.7 H* (0.5-2.0) mmol/L Lactic Acid Fup @ 2Hr (0.5-2.0) mmol/L Calcium (8.4-10.2) mg/dL Total Bilirubin (0.0-1.0) mg/dL Direct Bilirubin (0.0-0.5) mg/dL AST (5-31) U/L ALT (0-31) U/L Alkaline Phosphatase (39-117) U/L Troponin I High Sens 109.8 H (<3.5-17.0) ng/L Total Protein (6.5-8.0) g/dL Albumin (3.5-5.0) g/dL Lipase (8-78) U/L Urine Color Urine Appearance Urine pH (5.0-8.0) Ur Specific [place] (1.005-1.025) Urine Protein (NEG-TRACE) MG/DL Urine Glucose (UA) (NEG) MG/DL Urine Ketones (NEG) MG/DL Urine Blood (NEG) Urine Nitrite (NEG) Ur Leukocyte Esterase (NEG) Urine RBC (0) /HPF Urine WBC (0-4) /HPF Ur Squamous Epith Cells /LPF Urine Bacteria /LPF Salicylates (15-30) mg/dL Acetaminophen (<30) mcg/mL Ethyl Alcohol mg/dL Coronavirus (PCR) NEGATIVE (Negative) Influenza Type A (PCR) NEGATIVE (Negative) Influenza Type B (PCR) NEGATIVE (Negative) RSV RNA Qual (PCR) NEGATIVE (Negative) 11/11/20 11/11/20 11/11/20 Range/Units 17:52 18:19 19:31 WBC (4.8-10.8) X10*3/uL RBC (4.20-5.50) X10*6/uL Hgb (12.0-16.0) g/dl Hct (37-47) % MCV (80-98) fL MCH (27.0-33.0) pg MCHC (31.0-35.0) g/dl RDW (11.0-16.0) % Plt Count (160-400) X10*3/uL MPV (9.4-12.3) fL Immature Gran % (Auto) Neut % (Auto) Lymph % (Auto) [place] % (Auto) Eos % (Auto) Baso % (Auto) Lymph # (Auto) [place] # (Auto) Eos # (Auto) Baso # (Auto) Abs Immat Gran (auto) Absolute Neuts (auto) Absolute Nucleated RBC (0.0-0.012) X10*3/uL Nucleated RBC % (auto) (0.0-0.2) /100WBC Neutrophils % (Manual) (45-73) % Band Neutrophils % (3-5) % Lymphocytes % (Manual) (20-40) % Atypical Lymphs % (Man) (0-6) % Monocytes % (Manual) (2-11) % Abs Neuts (Manual) (2.2-7.9) X10*3/uL Lymphocytes # (Manual) (0.6-4.8) X10*3/uL Atyp Lymphs # (Manual) x10*3/uL Monocytes # (Manual) (0.0-1.2) X10*3/uL Nucleated RBCs (0-0) /100WBC Platelet Estimate (NORMAL) Plt Morphology Comment RBC Morphology PT (10.8-13.0) SEC INR (0.9-1.1) ABG pH 7.35 (7.35-7.45) ABG pCO2 21 L (32-45) mmHg ABG pO2 79 L (83-108) mmHg ABG HCO3 12 L (22-26) mmol/L ABG O2 Saturation TNP ABG Base Excess -11.1 Oxygen Given ROOM AIR Sodium (135-145) mmol/L Potassium (3.3-5.1) mmol/L Chloride (96-108) mmol/L Carbon Dioxide (22-29) mmol/L Anion Gap (12-20) BUN (9-16) mg/dL Creatinine (0.5-1.4) mg/dL Estim Creat Clear Calc Estimated GFR POC Glucose (60-115) mg/dL Random Glucose (60-115) mg/dL Lactic Acid (0.5-2.0) mmol/L Lactic Acid Fup @ 2Hr 7.2 H* (0.5-2.0) mmol/L Calcium (8.4-10.2) mg/dL Total Bilirubin (0.0-1.0) mg/dL Direct Bilirubin (0.0-0.5) mg/dL AST (5-31) U/L ALT (0-31) U/L Alkaline Phosphatase (39-117) U/L Troponin I High Sens (<3.5-17.0) ng/L Total Protein (6.5-8.0) g/dL Albumin (3.5-5.0) g/dL Lipase (8-78) U/L Urine Color BROWN Urine Appearance CLOUDY Urine pH 7.5 (5.0-8.0) Ur Specific [place] 1.020 (1.005-1.025) Urine Protein 2+ H (NEG-TRACE) MG/DL Urine Glucose (UA) NEG (NEG) MG/DL Urine Ketones 5 (NEG) MG/DL Urine Blood 2+ H (NEG) Urine Nitrite POS H (NEG) Ur Leukocyte Esterase 2+ H (NEG) Urine RBC 50-75 H (0) /HPF Urine WBC TNTC H (0-4) /HPF Ur Squamous Epith Cells NONE /LPF Urine Bacteria 4+ /LPF Salicylates (15-30) mg/dL Acetaminophen (<30) mcg/mL Ethyl Alcohol mg/dL Coronavirus (PCR) (Negative) Influenza Type A (PCR) (Negative) Influenza Type B (PCR) (Negative) RSV RNA Qual (PCR) (Negative) 11/11/20 11/11/20 11/11/20 Range/Units 20:13 20:13 20:13 WBC (4.8-10.8) X10*3/uL RBC (4.20-5.50) X10*6/uL Hgb (12.0-16.0) g/dl Hct (37-47) % MCV (80-98) fL MCH (27.0-33.0) pg MCHC (31.0-35.0) g/dl RDW (11.0-16.0) % Plt Count (160-400) X10*3/uL MPV (9.4-12.3) fL Immature Gran % (Auto) Neut % (Auto) Lymph % (Auto) [place] % (Auto) Eos % (Auto) Baso % (Auto) Lymph # (Auto) [place] # (Auto) Eos # (Auto) Baso # (Auto) Abs Immat Gran (auto) Absolute Neuts (auto) Absolute Nucleated RBC (0.0-0.012) X10*3/uL Nucleated RBC % (auto) (0.0-0.2) /100WBC Neutrophils % (Manual) (45-73) % Band Neutrophils % (3-5) % Lymphocytes % (Manual) (20-40) % Atypical Lymphs % (Man) (0-6) % Monocytes % (Manual) (2-11) % Abs Neuts (Manual) (2.2-7.9) X10*3/uL Lymphocytes # (Manual) (0.6-4.8) X10*3/uL Atyp Lymphs # (Manual) x10*3/uL Monocytes # (Manual) (0.0-1.2) X10*3/uL Nucleated RBCs (0-0) /100WBC Platelet Estimate (NORMAL) Plt Morphology Comment RBC Morphology PT (10.8-13.0) SEC INR (0.9-1.1) ABG pH (7.35-7.45) ABG pCO2 (32-45) mmHg ABG pO2 (83-108) mmHg ABG HCO3 (22-26) mmol/L ABG O2 Saturation ABG Base Excess Oxygen Given Sodium (135-145) mmol/L Potassium (3.3-5.1) mmol/L Chloride (96-108) mmol/L Carbon Dioxide (22-29) mmol/L Anion Gap (12-20) BUN (9-16) mg/dL Creatinine (0.5-1.4) mg/dL Estim Creat Clear Calc Estimated GFR POC Glucose (60-115) mg/dL Random Glucose (60-115) mg/dL Lactic Acid (0.5-2.0) mmol/L Lactic Acid Fup @ 2Hr (0.5-2.0) mmol/L Calcium (8.4-10.2) mg/dL Total Bilirubin (0.0-1.0) mg/dL Direct Bilirubin (0.0-0.5) mg/dL AST (5-31) U/L ALT (0-31) U/L Alkaline Phosphatase (39-117) U/L Troponin I High Sens 111.9 H (<3.5-17.0) ng/L Total Protein (6.5-8.0) g/dL Albumin (3.5-5.0) g/dL Lipase (8-78) U/L Urine Color Urine Appearance Urine pH (5.0-8.0) Ur Specific [place] (1.005-1.025) Urine Protein (NEG-TRACE) MG/DL Urine Glucose (UA) (NEG) MG/DL Urine Ketones (NEG) MG/DL Urine Blood (NEG) Urine Nitrite (NEG) Ur Leukocyte Esterase (NEG) Urine RBC (0) /HPF Urine WBC (0-4) /HPF Ur Squamous Epith Cells /LPF Urine Bacteria /LPF Salicylates < 5.0 L (15-30) mg/dL Acetaminophen 17 (<30) mcg/mL Ethyl Alcohol < 10 mg/dL Coronavirus (PCR) (Negative) Influenza Type A (PCR) (Negative) Influenza Type B (PCR) (Negative) RSV RNA Qual (PCR) (Negative) 02/24/21 Range/Units 21:07 WBC (4.8-10.8) X10*3/uL RBC (4.20-5.50) X10*6/uL Hgb (12.0-16.0) g/dl Hct (37-47) % MCV (80-98) fL MCH (27.0-33.0) pg MCHC (31.0-35.0) g/dl RDW (11.0-16.0) % Plt Count (160-400) X10*3/uL MPV (9.4-12.3) fL Immature Gran % (Auto) Neut % (Auto) Lymph % (Auto) [place] % (Auto) Eos % (Auto) Baso % (Auto) Lymph # (Auto) [place] # (Auto) Eos # (Auto) Baso # (Auto) Abs Immat Gran (auto) Absolute Neuts (auto) Absolute Nucleated RBC (0.0-0.012) X10*3/uL Nucleated RBC % (auto) (0.0-0.2) /100WBC Neutrophils % (Manual) (45-73) % Band Neutrophils % (3-5) % Lymphocytes % (Manual) (20-40) % Atypical Lymphs % (Man) (0-6) % Monocytes % (Manual) (2-11) % Abs Neuts (Manual) (2.2-7.9) X10*3/uL Lymphocytes # (Manual) (0.6-4.8) X10*3/uL Atyp Lymphs # (Manual) x10*3/uL Monocytes # (Manual) (0.0-1.2) X10*3/uL Nucleated RBCs (0-0) /100WBC Platelet Estimate (NORMAL) Plt Morphology Comment RBC Morphology PT (10.8-13.0) SEC INR (0.9-1.1) ABG pH (7.35-7.45) ABG pCO2 (32-45) mmHg ABG pO2 (83-108) mmHg ABG HCO3 (22-26) mmol/L ABG O2 Saturation ABG Base Excess Oxygen Given Sodium (135-145) mmol/L Potassium (3.3-5.1) mmol/L Chloride (96-108) mmol/L Carbon Dioxide (22-29) mmol/L Anion Gap (12-20) BUN (9-16) mg/dL Creatinine (0.5-1.4) mg/dL Estim Creat Clear Calc Estimated GFR POC Glucose 102 (60-115) mg/dL Random Glucose (60-115) mg/dL Lactic Acid (0.5-2.0) mmol/L Lactic Acid Fup @ 2Hr (0.5-2.0) mmol/L Calcium (8.4-10.2) mg/dL Total Bilirubin (0.0-1.0) mg/dL Direct Bilirubin (0.0-0.5) mg/dL AST (5-31) U/L ALT (0-31) U/L Alkaline Phosphatase (39-117) U/L Troponin I High Sens (<3.5-17.0) ng/L Total Protein (6.5-8.0) g/dL Albumin (3.5-5.0) g/dL Lipase (8-78) U/L Urine Color Urine Appearance Urine pH (5.0-8.0) Ur Specific [place] (1.005-1.025) Urine Protein (NEG-TRACE) MG/DL Urine Glucose (UA) (NEG) MG/DL Urine Ketones (NEG) MG/DL Urine Blood (NEG) Urine Nitrite (NEG) Ur Leukocyte Esterase (NEG) Urine RBC (0) /HPF Urine WBC (0-4) /HPF Ur Squamous Epith Cells /LPF Urine Bacteria /LPF Salicylates (15-30) mg/dL Acetaminophen (<30) mcg/mL Ethyl Alcohol mg/dL Coronavirus (PCR) (Negative) Influenza Type A (PCR) (Negative) Influenza Type B (PCR) (Negative) RSV RNA Qual (PCR) (Negative) Imaging Data Abdominal ultrasound: Radiologist's impression: PANCREAS: The pancreas appears unremarkable, without masses or ductal dilatation, with the exception of the tail which is obscured by bowel gas. LIVER: The liver appears mildly enlarged and demonstrates increased echogenicity suggesting hepatic steatosis The liver contour is normal. Parenchymal echogenicity is normal. No focal hepatic lesion. There is no intrahepatic biliary duct dilatation seen. GALLBLADDER: The gallbladder contains multiple calculi that were also seen on the CT scan earlier today. Echogenic bile is present. The gallbladder wall appears slightly thickened at 6 mm. COMMON BILE DUCT: Normal in caliber measuring 0.3 cm in diameter. RIGHT KIDNEY: No hydronephrosis. A subcentimeter mid pole cyst is present. No renal solid calculi or focal parenchymal lesions. The kidney measures 10.2 cm in maximum dimension. FREE FLUID: None. US/US abdomen limited IMPRESSION: Liver appears slightly echogenic suggesting hepatic steatosis. On the CT scan today, the liver is only a couple of Hounsfield units higher in attenuation than the spleen. CT scan - abdomen: Radiologist's impression: FINDINGS: Visualized lung bases demonstrate mild dependent atelectasis. The liver is normal in size but demonstrates diffusely decreased attenuation. There is a 1.7 cm gallstone within an otherwise unremarkable appearing gallbladder. The pancreas, spleen and adrenal glands are unremarkable. Symmetrically sized kidneys. No renal calculi or hydronephrosis bilaterally. The stomach is decompressed and therefore not accurately evaluated. Normal caliber loops of small and large bowel. There is diffuse circumferential thickening of the rectum suggesting proctitis. Soft tissue defect is present posterior to the coccyx with associated subcutaneous air. There is subtle cortical irregularity of the posterior coccyx. Soft tissue stranding and subcutaneous air extends primarily inferiorly and to the left of midline, extending at least 4 cm beneath the skin surface. The bladder is decompressed around a Wang catheter and therefore cannot be evaluated. The uterus is mildly prominent for patient age. Nonaneurysmal abdominal aorta which demonstrates moderate to severe atherosclerotic disease. Diffuse osteopenia. Moderate diffuse degenerative changes of the spine. CT/CT abdomen pelvis wo con IMPRESSION: 1. Decubitus ulcer posterior to the coccyx with extension inferior and slightly to the left of midline. There is no well-defined fluid collection present. There is subtle cortical irregularity of the underlying coccyx which raises the possibility for osteomyelitis. 2. Diffuse circumferential thickening of the rectum suggesting proctitis. Clinical correlation recommended. 3. Diffusely decreased liver attenuation suggesting hepatic steatosis. 4. Cholelithiasis. Critical Care Time Critical Care Time Total Critical Care Time: 90 Discharge Plan Discharge Clinical Impression: Cholelithiasis, Osteomyelitis of sacrum, Encephalopathy, Elevated troponin, Acute UTI Prescriptions: No Action (DME) miscellaneous medical supply Misc See Rx Instructions .ROUTE .MEDSUPPLY Qty: 1 RF: 0 (DME) hydrocolloid dressing [Comfeel Plus Ulcer Dressing] 6 X 6 bandage See Rx Instructions .ROUTE .MEDSUPPLY Qty: 30 RF: 11 (DME) Briefs, Adult-Extra Large Misc See Rx Instructions .ROUTE .MEDSUPPLY Qty: 56 RF: 3 mirabegron 25 mg tablet extended release 24 hr 25 mg PO DAILY 90 Days Qty: 90 RF: 1 (DME) hydrocolloid dressing [Aquacel Extra] 6 X 6 bandage See Rx Instructions .ROUTE .MEDSUPPLY Qty: 30 RF: 11 (DME) air mattress twin See Rx Instructions .Route .MEDSUPPLY Qty: 1 RF: 0 Sween Prep Wipes 0.5 % pads, medicated 1 pad topical .every 4 hours PRN (Reason: cleaning) 30 Days Qty: 648 RF: 11 (DME) miscellaneous medical supply Misc See Rx Instructions .ROUTE .MEDSUPPLY Qty: 1 RF: 0 Ensure Liquid 1 ea PO BID 30 Days Qty: 3792 RF: 11 [facility] (honey) 80 % gel 1 appl topical DAILY 30 Days Qty: 44 RF: 6 (DME) Comfort Shield Adult Diaper Misc See Rx Instructions .ROUTE .MEDSUPPLY Qty: 120 RF: 11 (DME) incontinence pad, liner, disp Pad See Rx Instructions .ROUTE .MEDSUPPLY Qty: 96 RF: 11 (DME) disposable gloves [Biobrane Gloves Large] Misc See Rx Instructions .ROUTE .MEDSUPPLY Qty: 200 RF: 11 amlodipine 2.5 mg tablet 2.5 mg PO DAILY RF: 0 aspirin 81 mg tablet,delayed release (DR/EC) 81 mg PO DAILY RF: 0 atorvastatin 40 mg tablet 40 mg PO DAILY RF: 0 cetirizine 10 mg tablet 10 mg PO DAILY PRN (Reason: allergies) RF: 0 glipizide 2.5 mg tablet extended release 24hr 2.5 mg PO DAILY RF: 0 metoprolol succinate 100 mg tablet extended release 24 hr 150 mg PO DAILY RF: 0
[2020-11-11] MEDS: 0.9 % Sodium Chloride 1,000 ML 999 ML IVCONT ×2 (17:00)
[2020-11-11 17:19] LABS: INTERNATIONAL NORM RATIO 1.5 (0.9-1.1); Prothrombin Time 17.6 SEC (10.8-13.0)
[2020-11-11 17:20] LABS: Hematocrit 29.4 % (37-47); Hemoglobin 9.2 g/dl (12.0-16.0); Mean Corpuscular HGB Conc 31.3 g/dl (31.0-35.0); Mean Corpuscular Volume 92.7 fL (80-98); Mean Platelet Volume 11.2 fL (9.4-12.3); NRBC Pct Auto 0.9 /100WBC (0.0-0.2); Platelet Count 140 X10*3/uL (160-400); Red Blood Count 3.17 X10*6/uL (4.20-5.50); Red Cell Distribution Width 19.7 % (11.0-16.0)
[2020-11-11 17:30] LABS: WBC ABN SCTR FOR CBC 1
[2020-11-11] MEDS: Piperacillin Sodium/Tazobactam 3.375 GM in 0.9 % Sodium Chloride 50 ML IV ×2 (17:36→22:16)
[2020-11-11 17:55] LABS: Lactic Acid 10.7 mmol/L (0.5-2.0)
[2020-11-11 17:56] LABS: Alanine Aminotransferase 123 U/L (0-31); Albumin Level 1.9 g/dL (3.5-5.0); Alkaline Phosphatase 471 U/L (39-117); Anion Gap 24 (12-20); Aspartate Amino Transferase 143 U/L (5-31); Bilirubin Direct 1.4 mg/dL (0.0-0.5); Bilirubin Total 1.7 mg/dL (0.0-1.0); Blood Urea Nitrogen 87 mg/dL (9-16); Calcium 7.6 mg/dL (8.4-10.2); Carbon Dioxide 10 mmol/L (22-29); Chloride 105 mmol/L (96-108); Creatinine Clr Calc Pharmacy 7.1; Estimated Glomerular Filt Rate 11; Glucose Random 114 mg/dL (60-115); Lipase 91 U/L (8-78); Sodium 135 mmol/L (135-145); Total Protein 11.2 g/dL (6.5-8.0)
[2020-11-11 17:57] LABS: Troponin-I High Sensitivity 109.8 ng/L (<3.5-17.0)
[2020-11-11 18:02] LABS: Atypical Lymphs Percent Manual 2 % (0-6); Band Neutrophils Percent 11 % (3-5); Lymphocytes Percent Manual 1 % (20-40); Monocytes Percent Manual 6 % (2-11); Neutrophils Percent Manual 80 % (45-73)
[2020-11-11 18:03] LABS: Nucleated Red Blood Cells 3 /100WBC (0-0)
[2020-11-11 18:04] LABS: Platelet Estimate SLIGHTLY DECREASED (NORMAL); Platelet Morphology Comment NORMAL; RBC Morphology NORMAL
[2020-11-11 18:05] LABS: Atypical Lymph Absolute Manual 0.2 x10*3/uL; Lymphocytes Absolute Manual 0.1 X10*3/uL (0.6-4.8); Monocytes Absolute Manual 0.5 X10*3/uL (0.0-1.2); Neutrophils Absolute Manual 7.2 X10*3/uL (2.2-7.9); White Blood Count 7.9 X10*3/uL (4.8-10.8)
[2020-11-11 18:23] LABS: Pt Ventilation O2% ROOM AIR
[2020-11-11 18:24] LABS: Glucose Urine UA NEG (NEG); Leukocyte Esterase Urine 2+ (NEG); Nitrite Urine POS (NEG); PH 7.5 (5.0-8.0); UACC Culture Trigger YES; Urine Blood 2+ (NEG); Urine Ketones 5 MG/DL (NEG); Urine Protein 2+ MG/DL (NEG-TRACE)
[2020-11-11 18:27] LABS: Appearance Urine CLOUDY; Color Urine BROWN
[2020-11-11 18:31] LABS: ABG PCO2 21 mmHg (32-45); Base Excess ABG -11.1; HCO3 ABG 12 mmol/L (22-26); PO2 ABG 79 mmHg (83-108); pH ABG 7.35 (7.35-7.45)
[2020-11-11 18:32] LABS: Bacteria Urine 4+ /LPF; RBC Urine 50-75 /HPF (0); WBC Urine TNTC /HPF (0-4)
[2020-11-11 18:46] LABS: Influenza A PCR NEGATIVE (Negative); Influenza B PCR NEGATIVE (Negative); Resp Syncy Virus RNA Qual PCR NEGATIVE (Negative); SARS COV2 PCR INHOUSE NEGATIVE (Negative)
[2020-11-11 19:07] LABS: Reflex Lactate? Lactic Acid Added
[2020-11-11 20:22] LABS: ~Lactic Acid-LAB USE ONLY 7.2 mmol/L (0.5-2.0)
--- NOTE | 2020-11-11 20:43 | PC.NURSE ---
Addendum entered by Carrillo Acosta RN 11/11/20 22:33: report given to [facility] [place] [place]. pt is ready for transport. hospitalist yue pt. pt will be receiving vanco and zosyn. maintenance fluid runnint at LR 100 ml/hr. Original Note: Report received at 1900. Care assumed. pt not verbal, eyes opened. vss. 2 l of iv fluid completed when care assumed. tachypnic, labored breathing, diaphoretic. core temp at 98. urine dark brown color, sediment seen. incontinent of stool. completed bed change. unstable coccyx pressure injury. color black. foul odor. picture taken and placed on chart. 2nd Lactic acid critical at 7.[address] gallego notified. no new order at this time. will continue to monitor.
[2020-11-11 20:51] LABS: Ethanol < 10 mg/dL
[2020-11-11 20:56] LABS: Acetaminophen LAB 17 mcg/mL (<30)
[2020-11-11 21:08] LABS: Salicylate < 5.0 mg/dL (15-30)
[2020-11-11 21:12] LABS: Glucose, Whole Blood 102 mg/dL (60-115)
[2020-11-11 21:12] LABS: Troponin-I High Sensitivity 111.9 ng/L (<3.5-17.0)
--- NOTE | 2020-11-11 21:25 | PM.IMHP ---
History of Present Illness Date of Service: 11/11/20 Chief Complaint: Altered mental status This is a 80-year-old female with significant past medical history of dementia, diabetes, HLD, hypertension, stroke and urinary incontinence was brought into the hospital by EMS after her [employer] ADMINISTRATOR called stating that she is altered. [employer]RATOR is new to the patient and does not know any of her past medical history her usual [employer] ADMINISTRATOR is on vacation, her son that she lives with is away out of the country for few months, and her 2nd son is also in [place]. Her [employer] ADMINISTRATOR reports that patient is altered but does not know her baseline mentation, she reported to the ED physician that the patient has not been eating or drinking. I am unable to get much more history as patient herself is very lethargic does not really answer a lot of questions and just moans and groans in pain On arrival to the ED patient has a temperature of 103.2?, heart rate of 119, respiratory rate of 40 blood pressure of 129/70, satting 96% on room air. Labs on arrival significant for WBC count of 13, hemoglobin of 9.2 which is stable from her most lab, PT of 17.6, INR of 1.5, BUN of 84, creatinine of 3.94 from 0.87 on 10/27, lactic acid of 10.7, bili of 1.7, AST of 143, ALT of 123, alk-phos of 471, high sensitivity troponin of 109 increased to 111, albumin of 1.9, lipase of 91, UA that is positive for leukocyte Estrace, nitrites, WBC, negative COVID-19, Abdominal CT shows to the coccyx with extension inferior and slightly to the left of midline, with subtle cortical irregularity of the underlying coccygeal which raises the possibility of osteomyelitis. It also shows diffuse circumferential thickening of the rectum suggesting proctitis Cholelithiasis While in the ED she was discovered to have a coccygeal ulcer that is unstageable, covered in feces and necrotic tissue. Past medical history as below his obtained from EMR Review of Systems Review of Systems: Yes Unobtainable due to mental condition and Unobtainable due to mental status Neurologic: Reports confusion Psychiatric: Psychiatric: Reports confusion PMFSH Medical History Dementia Diabetes Dyslipidemia Fecal incontinence Hypertension Malnutrition Pressure ulcer, stage 4 Stroke Ulcer Ulcer of sacral region, stage 3 Urinary incontinence Social History Household Members: Unknown / Unable to assess Housing: Unknown / Unable to assess Unable to assess alcohol history related to: Unable to respond Alcohol intake: never Smoking Status: Never smoker Use of substances other than those prescribed or required for medical reasons: Unable to respond Advance Directives: No Advance Directives Information Provided: Yes Do you have thoughts of harming others: None Do you have a plan to hurt others: No Plan Recently lost weight without trying: Unsure Meds Allergies Allergy/AdvReac Type Severity Reaction Status Date / Time No Known Allergies Allergy Verified 10/12/20 16:57 [No Known Allergies*] Home Medications Medication Instructions Recorded Confirmed Last Taken Type amlodipine 2.5 mg tablet 2.5 mg PO DAILY 08/20/20 11/11/20 Unknown History aspirin 81 mg tablet,delayed 81 mg PO DAILY 08/20/20 11/11/20 Unknown History release atorvastatin 40 mg tablet 40 mg PO DAILY 08/20/20 11/11/20 Unknown History cetirizine 10 mg tablet 10 mg PO DAILY PRN 08/20/20 11/11/20 Unknown History glipizide 2.5 mg tablet, extended 2.5 mg PO DAILY 08/20/20 11/11/20 Unknown History release 24 hr metoprolol succinate 100 mg 150 mg PO DAILY 08/20/20 11/11/20 Unknown History tablet,extended release 24 hr Physical Exam Vital Signs and Narrative: Vital Signs: Last Vital Signs Temp 97.9 F 11/11/20 21:04 Pulse 87 11/11/20 21:04 Resp 26 H 11/11/20 21:04 BP 100/54 L 11/11/20 21:04 Pulse Ox 96 11/11/20 21:04 Body Mass Index 16.9 Const: Other: Grimacing in pain, moaning and whining when moved Appears significantly dehydrated General: confusion, ill appearing, lethargic and poor hygiene Nutritional Appearance: thin and underweight Orientation/consciousness: confusion and lethargic Limitations: altered mental status Eyes: General: appearance normal, both eyes and all related structures Resp: Effort & Inspection: normal respiratory effort Cardio: Rate: regular rate Rhythm: regular rhythm GI: Other: Abdominal tenderness on exam diffused, no guarding Skin: Lesions: lesion noted Neuro: General: confusion Extrem: Other: Has an unstageable coccygeal deep ulcer that is covered in feces as well as malodorous, necrotic tissue Results Labs CBC and Chem 7: 11/12/20 04:00 11/12/20 04:00 Labs: Laboratory Results - last 24 hr 11/11/20 11/11/20 11/11/20 16:57 16:57 16:57 MCV 92.7 MCH 29.0 MCHC 31.3 RDW 19.7 H Plt Count 140 L MPV 11.2 Immature Gran % (Auto) Cancelled Neut % (Auto) Cancelled Lymph % (Auto) Cancelled Evangeline % (Auto) Cancelled Eos % (Auto) Cancelled Baso % (Auto) Cancelled Lymph # (Auto) Cancelled Evangeline # (Auto) Cancelled Eos # (Auto) Cancelled Baso # (Auto) Cancelled Abs Immat Gran (auto) Cancelled Absolute Neuts (auto) Cancelled Absolute Nucleated RBC 0.070 H Nucleated RBC % (auto) 0.9 H Neutrophils % (Manual) 80 H Band Neutrophils % 11 H Lymphocytes % (Manual) 1 L Atypical Lymphs % (Man) 2 Monocytes % (Manual) 6 Abs Neuts (Manual) 7.2 Lymphocytes # (Manual) 0.1 L Atyp Lymphs # (Manual) 0.2 Monocytes # (Manual) 0.5 Nucleated RBCs 3 H Platelet Estimate SLIGHTLY DECREASED Plt Morphology Comment NORMAL RBC Morphology NORMAL PT 17.6 H INR 1.5 H ABG pH ABG pCO2 ABG pO2 ABG HCO3 ABG O2 Saturation ABG Base Excess Oxygen Given Anion Gap 24 H Estim Creat Clear Calc 7.1 Estimated GFR 11 POC Glucose Random Glucose 114 Lactic Acid Lactic Acid Fup @ 2Hr Calcium 7.6 L Total Bilirubin 1.7 H Direct Bilirubin 1.4 H AST 143 H ALT 123 H Alkaline Phosphatase 471 H D Troponin I High Sens Total Protein 11.2 H Albumin 1.9 L Lipase 91 H Urine Color Urine Appearance Urine pH Ur Specific [place] Urine Protein Urine Glucose (UA) Urine Ketones Urine Blood Urine Nitrite Ur Leukocyte Esterase Urine RBC Urine WBC Ur Squamous Epith Cells Urine Bacteria Salicylates Acetaminophen Ethyl Alcohol Coronavirus (PCR) Influenza Type A (PCR) Influenza Type B (PCR) RSV RNA Qual (PCR) 11/11/20 11/11/20 11/11/20 16:57 16:57 17:52 MCV MCH MCHC RDW Plt Count MPV Immature Gran % (Auto) Neut % (Auto) Lymph % (Auto) Evangeline % (Auto) Eos % (Auto) Baso % (Auto) Lymph # (Auto) Evangeline # (Auto) Eos # (Auto) Baso # (Auto) Abs Immat Gran (auto) Absolute Neuts (auto) Absolute Nucleated RBC Nucleated RBC % (auto) Neutrophils % (Manual) Band Neutrophils % Lymphocytes % (Manual) Atypical Lymphs % (Man) Monocytes % (Manual) Abs Neuts (Manual) Lymphocytes # (Manual) Atyp Lymphs # (Manual) Monocytes # (Manual) Nucleated RBCs Platelet Estimate Plt Morphology Comment RBC Morphology PT INR ABG pH ABG pCO2 ABG pO2 ABG HCO3 ABG O2 Saturation ABG Base Excess Oxygen Given Anion Gap Estim Creat Clear Calc Estimated GFR POC Glucose Random Glucose Lactic Acid 10.7 H* Lactic Acid Fup @ 2Hr Calcium Total Bilirubin Direct Bilirubin AST ALT Alkaline Phosphatase Troponin I High Sens 109.8 H Total Protein Albumin Lipase Urine Color Urine Appearance Urine pH Ur Specific [place] Urine Protein Urine Glucose (UA) Urine Ketones Urine Blood Urine Nitrite Ur Leukocyte Esterase Urine RBC Urine WBC Ur Squamous Epith Cells Urine Bacteria Salicylates Acetaminophen Ethyl Alcohol Coronavirus (PCR) NEGATIVE Influenza Type A (PCR) NEGATIVE Influenza Type B (PCR) NEGATIVE RSV RNA Qual (PCR) NEGATIVE 11/11/20 11/11/20 11/11/20 17:52 18:19 19:31 MCV MCH MCHC RDW Plt Count MPV Immature Gran % (Auto) Neut % (Auto) Lymph % (Auto) Evangeline % (Auto) Eos % (Auto) Baso % (Auto) Lymph # (Auto) Evangeline # (Auto) Eos # (Auto) Baso # (Auto) Abs Immat Gran (auto) Absolute Neuts (auto) Absolute Nucleated RBC Nucleated RBC % (auto) Neutrophils % (Manual) Band Neutrophils % Lymphocytes % (Manual) Atypical Lymphs % (Man) Monocytes % (Manual) Abs Neuts (Manual) Lymphocytes # (Manual) Atyp Lymphs # (Manual) Monocytes # (Manual) Nucleated RBCs Platelet Estimate Plt Morphology Comment RBC Morphology PT INR ABG pH 7.35 ABG pCO2 21 L ABG pO2 79 L ABG HCO3 12 L ABG O2 Saturation TNP ABG Base Excess -11.1 Oxygen Given ROOM AIR Anion Gap Estim Creat Clear Calc Estimated GFR POC Glucose Random Glucose Lactic Acid Lactic Acid Fup @ 2Hr 7.2 H* Calcium Total Bilirubin Direct Bilirubin AST ALT Alkaline Phosphatase Troponin I High Sens Total Protein Albumin Lipase Urine Color BROWN Urine Appearance CLOUDY Urine pH 7.5 Ur Specific [place] 1.020 Urine Protein 2+ H Urine Glucose (UA) NEG Urine Ketones 5 Urine Blood 2+ H Urine Nitrite POS H Ur Leukocyte Esterase 2+ H Urine RBC 50-75 H Urine WBC TNTC H Ur Squamous Epith Cells NONE Urine Bacteria 4+ Salicylates Acetaminophen Ethyl Alcohol Coronavirus (PCR) Influenza Type A (PCR) Influenza Type B (PCR) RSV RNA Qual (PCR) 11/11/20 11/11/20 11/11/20 20:13 20:13 20:13 MCV MCH MCHC RDW Plt Count MPV Immature Gran % (Auto) Neut % (Auto) Lymph % (Auto) Evangeline % (Auto) Eos % (Auto) Baso % (Auto) Lymph # (Auto) Evangeline # (Auto) Eos # (Auto) Baso # (Auto) Abs Immat Gran (auto) Absolute Neuts (auto) Absolute Nucleated RBC Nucleated RBC % (auto) Neutrophils % (Manual) Band Neutrophils % Lymphocytes % (Manual) Atypical Lymphs % (Man) Monocytes % (Manual) Abs Neuts (Manual) Lymphocytes # (Manual) Atyp Lymphs # (Manual) Monocytes # (Manual) Nucleated RBCs Platelet Estimate Plt Morphology Comment RBC Morphology PT INR ABG pH ABG pCO2 ABG pO2 ABG HCO3 ABG O2 Saturation ABG Base Excess Oxygen Given Anion Gap Estim Creat Clear Calc Estimated GFR POC Glucose Random Glucose Lactic Acid Lactic Acid Fup @ 2Hr Calcium Total Bilirubin Direct Bilirubin AST ALT Alkaline Phosphatase Troponin I High Sens 111.9 H Total Protein Albumin Lipase Urine Color Urine Appearance Urine pH Ur Specific [place] Urine Protein Urine Glucose (UA) Urine Ketones Urine Blood Urine Nitrite Ur Leukocyte Esterase Urine RBC Urine WBC Ur Squamous Epith Cells Urine Bacteria Salicylates < 5.0 L Acetaminophen 17 Ethyl Alcohol < 10 Coronavirus (PCR) Influenza Type A (PCR) Influenza Type B (PCR) RSV RNA Qual (PCR) 11/11/20 21:07 MCV MCH MCHC RDW Plt Count MPV Immature Gran % (Auto) Neut % (Auto) Lymph % (Auto) Evangeline % (Auto) Eos % (Auto) Baso % (Auto) Lymph # (Auto) Evangeline # (Auto) Eos # (Auto) Baso # (Auto) Abs Immat Gran (auto) Absolute Neuts (auto) Absolute Nucleated RBC Nucleated RBC % (auto) Neutrophils % (Manual) Band Neutrophils % Lymphocytes % (Manual) Atypical Lymphs % (Man) Monocytes % (Manual) Abs Neuts (Manual) Lymphocytes # (Manual) Atyp Lymphs # (Manual) Monocytes # (Manual) Nucleated RBCs Platelet Estimate Plt Morphology Comment RBC Morphology PT INR ABG pH ABG pCO2 ABG pO2 ABG HCO3 ABG O2 Saturation ABG Base Excess Oxygen Given Anion Gap Estim Creat Clear Calc Estimated GFR POC Glucose 102 Random Glucose Lactic Acid Lactic Acid Fup @ 2Hr Calcium Total Bilirubin Direct Bilirubin AST ALT Alkaline Phosphatase Troponin I High Sens Total Protein Albumin Lipase Urine Color Urine Appearance Urine pH Ur Specific [place] Urine Protein Urine Glucose (UA) Urine Ketones Urine Blood Urine Nitrite Ur Leukocyte Esterase Urine RBC Urine WBC Ur Squamous Epith Cells Urine Bacteria Salicylates Acetaminophen Ethyl Alcohol Coronavirus (PCR) Influenza Type A (PCR) Influenza Type B (PCR) RSV RNA Qual (PCR) Imaging Radiologist's Impressions: Impressions Chest X-Ray 11/11/20 16:33 IMPRESSION: Chronic coarse interstitial prominence, similar to priors. No new focal consolidation. Abdomen/Pelvis CT 11/11/20 18:12 IMPRESSION: 1. Decubitus ulcer posterior to the coccyx with extension inferior and slightly to the left of midline. There is no well-defined fluid collection present. There is subtle cortical irregularity of the underlying coccyx which raises the possibility for osteomyelitis. 2. Diffuse circumferential thickening of the rectum suggesting proctitis. Clinical correlation recommended. 3. Diffusely decreased liver attenuation suggesting hepatic steatosis. 4. Cholelithiasis. Abdomen Ultrasound 11/11/20 19:13 IMPRESSION: Liver appears slightly echogenic suggesting hepatic steatosis. On the CT scan today, the liver is only a couple of Hounsfield units higher in attenuation than the spleen. Assessment and Plan (1) Sepsis: Qualifiers: Sepsis type: sepsis due to unspecified organism Sepsis acute organ dysfunction status: with acute organ dysfunction Severe sepsis acute organ dysfunction type: encephalopathy Severe sepsis shock status: without septic shock Qualified Code(s): A41.9 - Sepsis, unspecified organism; R65.20 - Severe sepsis without septic shock; G93.40 - Encephalopathy, unspecified Status: Acute (2) Osteomyelitis of sacrum: Status: Acute (3) Encephalopathy: Status: Acute (4) Acute UTI: Status: Acute (5) Proctitis: Status: Acute (6) Elevated troponin: Status: Acute (7) Malnutrition: Qualifiers: Malnutrition type: protein-calorie malnutrition Protein-calorie malnutrition severity: severe Qualified Code(s): E43 - Unspecified severe protein-calorie malnutrition Status: Acute (8) Lactic acidosis: Status: Acute (9) GENE (acute kidney injury): Status: Acute (10) Transaminitis: Status: Acute (11) Cholelithiasis: Qualifiers: Cholelithiasis location: gallbladder Cholecystitis presence: without cholecystitis Biliary obstruction: without biliary obstruction Qualified Code(s): K80.20 - Calculus of gallbladder without cholecystitis without obstruction Status: Acute This is an unfortunate 80-year-old female who presents from the home by her [employer] with multiple issues as below # sepsis - multiple sources including UTI, proctitis, osteomyelitis -patient has a sacral ulcer that appears significantly infected, she also has UTI, as well as proctitis - patient received more than the 30 cc/kg fluid resuscitation - has leukocytosis, tachycardia, tachypnea, febrile, as well as elevated lactic acid Plan: - will continue her IV fluids, started on broad-spectrum antibiotics with vanc and Zosyn - follow cultures # osteomyelitis of coccygeal bone - will start patient on broad-spectrum antibiotics - follow cultures - will consult general surgery as well as infectious disease to guide management and treatment - follow ESR and CRP # Acute UTI - UA positive for nitrites, leukocyte Estrace, WBC - also has hematuria and appears even on urine sample - will start her on antibiotics - follow cultures # encephalopathy - baseline dementia and confusion worsened most likely because of the above with the hydration, and multiple infections - IV fluids, antibiotics - follow mentation # GENE - multifactorial, but most likely secondary to dehydration - patient clinically as well as lab flores appears dehydrated and hemoconcentrated - will start iv fluids - follow BMP # Lactic acidosis - multifactorial - started on iv fluids with improvement in [place] - follow to trend # elevated trop - most likely type 2 - No evidence of EKG changes - Cannot get hx from pt - Delta <50% - Telemetry # Malnurished - most liklely calorie deficient - supplement diet # Proctitis - IV abx Prognosis : poor Patient does not have a dedicated healthcare proxy, ED physician spoke to her son who is broad at this time and wanted patient to be full code DVT prophylaxis: Heparin subQ
[2020-11-11 21:33] LABS: Reflex Lactate? 2 Y
[2020-11-11] MEDS: vancomycin HCL 500 MG in 0.9 % Sodium Chloride 100 ML 110 MG IV (22:17)
[2020-11-11] MEDS: Lactated Ringers 1,000 ML 100 ML IVCONT (22:21)
[2020-11-11 22:48] LABS: ~Lactic Acid-LAB USE ONLY 5.3 mmol/L (0.5-2.0)
[2020-11-12] VITALS (11 sets, daily range): BP systolic 111–148; BP diastolic 53–67; PULSE 82–94; RESP 18–20; TEMP 36.2–36.8; O2SAT 90–95; BMI 18.4
[2020-11-12] MEDS: 0.9 % Sodium Chloride Flush 3 ML SYRINGE IVFLUSH ×4 (01:25→21:05)
[2020-11-12] MEDS: Piperacillin Sodium/Tazobactam 3.375 GM in 0.9 % Sodium Chloride 50 ML IV ×4 (03:27→21:04)
[2020-11-12 05:03] LABS: Hematocrit 24.2 % (37-47); Hemoglobin 7.5 g/dl (12.0-16.0); Mean Corpuscular Hemoglobin 29.2 pg (27.0-33.0); Mean Corpuscular Volume 94.2 fL (80-98); Mean Platelet Volume 12.8 fL (9.4-12.3); NRBC Pct Auto 0.2 /100WBC (0.0-0.2); Platelet Count 114 X10*3/uL (160-400); Red Blood Count 2.57 X10*6/uL (4.20-5.50); Red Cell Distribution Width 19.8 % (11.0-16.0)
[2020-11-12 05:15] LABS: WBC ABN SCTR FOR CBC 1
[2020-11-12 05:35] LABS: Band Neutrophils Percent 8 % (3-5); Lymphocytes Absolute Manual 2.5 X10*3/uL (0.6-4.8); Lymphocytes Percent Manual 19 % (20-40); Monocytes Absolute Manual 0.1 X10*3/uL (0.0-1.2); Monocytes Percent Manual 1 % (2-11); Neutrophils Absolute Manual 10.4 X10*3/uL (2.2-7.9); Neutrophils Percent Manual 72 % (45-73)
[2020-11-12 05:37] LABS: Acanthocytes 1+; Blood Urea Nitrogen 84 mg/dL (9-16); Ovalocytes 1+; Polychromasia 1+; RBC Morphology NOTED; Schistocytes 1+; Toxic Vacuolation PRESENT
[2020-11-12 05:38] LABS: Anion Gap 18 (12-20); Calcium 6.8 mg/dL (8.4-10.2); Carbon Dioxide 14 mmol/L (22-29); Chloride 111 mmol/L (96-108); Creatinine Clr Calc Pharmacy 8.2; Dohle Bodies PRESENT; Estimated Glomerular Filt Rate 12; Potassium 3.7 mmol/L (3.3-5.1); Sodium 139 mmol/L (135-145)
[2020-11-12 05:39] LABS: Large Platelet PRESENT; Platelet Estimate DECREASED (NORMAL); Platelet Morphology Comment NORMAL
[2020-11-12 05:49] LABS: Glucose Random 59 mg/dL (60-115)
[2020-11-12 05:52] LABS: Analysis Performed on: WHOLE BLOOD; Methyl Alcohol Level NONE DETECTED (NONE DETECTED)
[2020-11-12] MEDS: Dextrose 5 % and Lactated Ring 1,000 ML 80 ML IVCONT (06:05)
[2020-11-12 06:34] LABS: Glucose, Whole Blood 151 mg/dL (60-115)
[2020-11-12 07:52] LABS: Ethylene Glycol NONE DETECTED (NONE DETECTED)
[2020-11-12 08:07] LABS: C Reactive Protein 28.95 mg/dL (< or = 0.50)
[2020-11-12 08:36] LABS: Erythrocyte Sedimentation Rate > 140 MM/HR (0-20)
--- NOTE | 2020-11-12 10:13 | P.CONGS_ITS ---
History of Present Illness Consult details Consult date: 11/12/20 Reason for consult: other (Cholelithiasis and diffuse abdominal pain and stage IV sacral decubitus ulcer) Requesting physician: Dontae Hernandez Narrative: This is an unfortunate 72-year-old lady who presents to the emergency department last evening with her [employer]BE[employer] SIDING INSTALLER after having worsening mental status and noted to have diffuse abdominal pain. Of know based on the prior emergency room records patient had been in the emergency department 3 days prior with similar symptoms. Her stage IV sacral decubitus wound was evaluated by the emergency room physician and said to be granulating well. She had normal white blood cell count at that time as well as normal creatinine. When the patient presented to the emergency department last evening she had signs of sepsis with a lactic acid in the 7 range, a creatinine that had increased to 3 and half range and lower blood pressures. White blood cell count was normal but has risen to 13 today. Patient's urinalysis also shows a urinary tract infection. Patient underwent a CT scan abdomen and pelvis to evaluate for diffuse abdominal pain on physical exam. This CT scan showed cholelithiasis only. Patient was admitted to the [facility] service for workup and evaluation of sepsis as well as urinary tract infection as well as dehydration and acute kidney injury. Surgery was asked to consult on this patient regarding her stage IV decubitus ulcer as well as the cholelithiasis seen on CAT scan. Report given from the emergency physician taking care of this patient last evening was that the patient's son who she lives with his out of the country I believe in the [place]. Patient was brought to the emergency department by her ASBESTOS SIDING INSTALLER who has been caring for her but this ASBEST[employer] SIDING INSTALLER is not her normal ASBESTOS SIDING INSTALLER. This ASBESTOS SIDING INSTALLER could not give pertinent medical history. Last evening there were unable to contact the son to get any further medical history and history of her present illness. Review of systems and family history as well as social history are unable to be obtained in their entirety from the patient as she is non communicative. Review of Systems Review of Systems: Yes Unobtainable due to mental status PMFSH Past Medical History Medical History Dementia Diabetes Dyslipidemia Fecal incontinence Hypertension Malnutrition Pressure ulcer, stage 4 Stroke Ulcer Ulcer of sacral region, stage 3 Urinary incontinence Social History Social History Household Members: Unknown / Unable to assess Housing: Unknown / Unable to assess Unable to assess alcohol history related to: Unable to respond Alcohol intake: never Smoking Status: Never smoker Use of substances other than those prescribed or required for medical reasons: Unable to respond Advance Directives: No Advance Directives Information Provided: Yes Do you have thoughts of harming others: None Do you have a plan to hurt others: No Plan Recently lost weight without trying: Unsure service: No Current occupational status: unemployed and disabled Meds Allergies Allergy/AdvReac Type Severity Reaction Status Date / Time No Known Allergies Allergy Verified 10/12/20 16:57 [No Known Allergies*] Active Medications: Current Medications Generic Name Dose Route Start Last Admin Trade Name Freq PRN Reason Stop Dose Admin Acetaminophen 650 mg 11/11/20 21:32 Acetaminophen 325 Mg Tablet PO Q6H PRN Pain, Mild (Pain Scale 1-3) Aspirin 81 mg 11/12/20 09:00 11/12/20 09:47 Aspirin Enteric Coated 81 Mg Tablet.Dr PO Not Given DAILY VALENTIN Atorvastatin Calcium 40 mg 11/12/20 09:00 11/12/20 09:47 Atorvastatin Calcium 40 Mg Tablet PO Not Given DAILY VALENTIN Docusate Sodium 100 mg 11/11/20 21:32 Docusate Sodium 100 Mg Capsule PO DAILY PRN Constipation Piperacillin Sod/Tazobactam 50 mls @ 100 mls/hr 11/11/20 21:32 11/12/20 09:46 Sod 3.375 gm/ Sodium Chloride IV 100 mls/hr Q6H VALENTIN Administration Vancomycin HCl 500 mg/ Sodium 110 mls @ 110 mls/hr 11/11/20 22:00 11/12/20 00:52 Chloride IV Infused Q48H VALENTIN Infusion Dextrose/Lactated Ringer's 1,000 mls @ 100 mls/hr 11/12/20 06:00 11/12/20 06:05 D5lr IVCONT 80 mls/hr .Q10H VALENTIN Administration Metoprolol Succinate 150 mg 11/12/20 09:00 11/12/20 09:47 Metoprolol Succinate Er 100 Mg Tab.Er.24h PO Not Given DAILY VALENTIN Protocol Ondansetron HCl 4 mg 11/11/20 21:32 Ondansetron Hcl 4 Mg/2 Ml Vial IVPUSH Q8H PRN Nausea and Vomiting Pharmacy Consult 1 each 11/11/20 21:32 Consult Rx Vancomycin Dosing MISCELLANE DAILY PRN Consult order Sodium Chloride 3 ml 11/12/20 00:00 11/12/20 09:20 0.9 % Sodium Chloride Flush 3 Ml Syringe IVFLUSH 3 ml QSHIFT [facility] Administration Home Medications Medication Instructions Recorded Confirmed Last Taken Type amlodipine 2.5 mg tablet 2.5 mg PO DAILY 08/20/20 11/11/20 Unknown History aspirin 81 mg tablet,delayed 81 mg PO DAILY 08/20/20 11/11/20 Unknown History release atorvastatin 40 mg tablet 40 mg PO DAILY 08/20/20 11/11/20 Unknown History cetirizine 10 mg tablet 10 mg PO DAILY PRN 08/20/20 11/11/20 Unknown History glipizide 2.5 mg tablet, extended 2.5 mg PO DAILY 08/20/20 11/11/20 Unknown History release 24 hr metoprolol succinate 100 mg 150 mg PO DAILY 08/20/20 11/11/20 Unknown History tablet,extended release 24 hr Physical Exam Vital Signs: Vital Signs: Last Vital Signs Temp 97.2 F 11/12/20 08:00 Pulse 82 11/12/20 08:00 Resp 18 11/12/20 08:00 BP 123/56 L 11/12/20 08:00 Pulse Ox 92 11/12/20 08:00 Body Mass Index 18.4 Const: Other: Lying in bed quietly. Patient mumbles on intelligible words occasionally. She is blinking her eyes spontaneously. She does not follow any commands. Patient does moan when you touch her extremities or her back or her abdomen. HENMT: Head: Yes normal to inspection, Yes normocephalic and Yes atraumatic Eyes: General: appearance normal, both eyes and all related structures Sclerae: sclerae normal EOM: EOMs intact bilaterally Neck: Neck: Yes normal visual inspection and Yes no lymphadenopathy Thyroid: Thyroid normal Resp: Effort & Inspection: normal respiratory effort, no audible wheezes, no cough, respiratory effort not decreased, no grunting, not labored, no nasal flaring, no respiratory distress, no retractions, no stridor, not tachypneic and no tracheal deviation Auscultation: clear to auscultation bilaterally Cardio: Heart sounds: S1 normal heart sound present and S2 normal heart sound present GI: Other: Soft nondistended. There is no evidence of hernia or surgical scars on abdomen. The patient moans with even light palpation of the abdomen or other portions of her body. Palpation (GI): Soft to palpation, not firm, no guarding, not rigid, hepatosplenomegaly present and no hernias : Other: Wang catheter in place with pinkish output Skin: Other: There is a large about 5 cm grade 3-4 sacral decubitus wound that appears to be down to bone or at least fascia. There is necrotic tissue without any evidence of purulence. There is a clear drainage. The surrounding tissue is a grade 3 sacral decubitus ulcer. Neuro: Other: Significant decline in mental status. Patient is not oriented at all. She mumbles unintelligible words. She is unable to follow even simple commands. Extrem: Other: There are bilateral heel ulcers. There appears to be footdrop in their boots in place on bilateral feet. There is no edema of the bilateral lower extremities. Results Labs Result diagrams: 11/12/20 04:00 11/12/20 04:00 Labs: Abnormal lab results 11/11/20 11/11/20 11/11/20 Range/Units 16:57 16:57 16:57 WBC (4.8-10.8) X10*3/uL RBC 3.17 L (4.20-5.50) X10*6/uL Hgb 9.2 L (12.0-16.0) g/dl Hct 29.4 L (37-47) % RDW 19.7 H (11.0-16.0) % Plt Count 140 L (160-400) X10*3/uL MPV (9.4-12.3) fL Absolute Nucleated RBC 0.070 H (0.0-0.012) X10*3/uL Nucleated RBC % (auto) 0.9 H (0.0-0.2) /100WBC Neutrophils % (Manual) 80 H (45-73) % Band Neutrophils % 11 H (3-5) % Lymphocytes % (Manual) 1 L (20-40) % Monocytes % (Manual) (2-11) % Abs Neuts (Manual) (2.2-7.9) X10*3/uL Lymphocytes # (Manual) 0.1 L (0.6-4.8) X10*3/uL Nucleated RBCs 3 H (0-0) /100WBC ESR (0-20) MM/HR PT 17.6 H (10.8-13.0) SEC INR 1.5 H (0.9-1.1) ABG pCO2 (32-45) mmHg ABG pO2 (83-108) mmHg ABG HCO3 (22-26) mmol/L Chloride (96-108) mmol/L Carbon Dioxide 10 L* D (22-29) mmol/L Anion Gap 24 H (12-20) BUN 87 H* D (9-16) mg/dL Creatinine 3.94 H (0.5-1.4) mg/dL POC Glucose (60-115) mg/dL Random Glucose (60-115) mg/dL Lactic Acid (0.5-2.0) mmol/L Lactic Acid Fup @ 2Hr (0.5-2.0) mmol/L Lactic Acid Fup @ 4Hr (0.5-2.0) mmol/L Calcium 7.6 L (8.4-10.2) mg/dL Total Bilirubin 1.7 H (0.0-1.0) mg/dL Direct Bilirubin 1.4 H (0.0-0.5) mg/dL AST 143 H (5-31) U/L ALT 123 H (0-31) U/L Alkaline Phosphatase 471 H D (39-117) U/L Troponin I High Sens (<3.5-17.0) ng/L C-Reactive Protein (< or = 0.50) mg/dL Total Protein 11.2 H (6.5-8.0) g/dL Albumin 1.9 L (3.5-5.0) g/dL Lipase 91 H (8-78) U/L Urine Protein (NEG-TRACE) MG/DL Urine Blood (NEG) Urine Nitrite (NEG) Ur Leukocyte Esterase (NEG) Urine RBC (0) /HPF Urine WBC (0-4) /HPF Salicylates (15-30) mg/dL Crossmatch 11/11/20 11/11/20 11/11/20 Range/Units 16:57 16:57 17:52 WBC (4.8-10.8) X10*3/uL RBC (4.20-5.50) X10*6/uL Hgb (12.0-16.0) g/dl Hct (37-47) % RDW (11.0-16.0) % Plt Count (160-400) X10*3/uL MPV (9.4-12.3) fL Absolute Nucleated RBC (0.0-0.012) X10*3/uL Nucleated RBC % (auto) (0.0-0.2) /100WBC Neutrophils % (Manual) (45-73) % Band Neutrophils % (3-5) % Lymphocytes % (Manual) (20-40) % Monocytes % (Manual) (2-11) % Abs Neuts (Manual) (2.2-7.9) X10*3/uL Lymphocytes # (Manual) (0.6-4.8) X10*3/uL Nucleated RBCs (0-0) /100WBC ESR (0-20) MM/HR PT (10.8-13.0) SEC INR (0.9-1.1) ABG pCO2 (32-45) mmHg ABG pO2 (83-108) mmHg ABG HCO3 (22-26) mmol/L Chloride (96-108) mmol/L Carbon Dioxide (22-29) mmol/L Anion Gap (12-20) BUN (9-16) mg/dL Creatinine (0.5-1.4) mg/dL POC Glucose (60-115) mg/dL Random Glucose (60-115) mg/dL Lactic Acid 10.7 H* (0.5-2.0) mmol/L Lactic Acid Fup @ 2Hr (0.5-2.0) mmol/L Lactic Acid Fup @ 4Hr (0.5-2.0) mmol/L Calcium (8.4-10.2) mg/dL Total Bilirubin (0.0-1.0) mg/dL Direct Bilirubin (0.0-0.5) mg/dL AST (5-31) U/L ALT (0-31) U/L Alkaline Phosphatase (39-117) U/L Troponin I High Sens 109.8 H (<3.5-17.0) ng/L C-Reactive Protein (< or = 0.50) mg/dL Total Protein (6.5-8.0) g/dL Albumin (3.5-5.0) g/dL Lipase (8-78) U/L Urine Protein 2+ H (NEG-TRACE) MG/DL Urine Blood 2+ H (NEG) Urine Nitrite POS H (NEG) Ur Leukocyte Esterase 2+ H (NEG) Urine RBC 50-75 H (0) /HPF Urine WBC TNTC H (0-4) /HPF Salicylates (15-30) mg/dL Crossmatch 11/11/20 11/11/20 11/11/20 Range/Units 18:19 19:31 20:13 WBC (4.8-10.8) X10*3/uL RBC (4.20-5.50) X10*6/uL Hgb (12.0-16.0) g/dl Hct (37-47) % RDW (11.0-16.0) % Plt Count (160-400) X10*3/uL MPV (9.4-12.3) fL Absolute Nucleated RBC (0.0-0.012) X10*3/uL Nucleated RBC % (auto) (0.0-0.2) /100WBC Neutrophils % (Manual) (45-73) % Band Neutrophils % (3-5) % Lymphocytes % (Manual) (20-40) % Monocytes % (Manual) (2-11) % Abs Neuts (Manual) (2.2-7.9) X10*3/uL Lymphocytes # (Manual) (0.6-4.8) X10*3/uL Nucleated RBCs (0-0) /100WBC ESR (0-20) MM/HR PT (10.8-13.0) SEC INR (0.9-1.1) ABG pCO2 21 L (32-45) mmHg ABG pO2 79 L (83-108) mmHg ABG HCO3 12 L (22-26) mmol/L Chloride (96-108) mmol/L Carbon Dioxide (22-29) mmol/L Anion Gap (12-20) BUN (9-16) mg/dL Creatinine (0.5-1.4) mg/dL POC Glucose (60-115) mg/dL Random Glucose (60-115) mg/dL Lactic Acid (0.5-2.0) mmol/L Lactic Acid Fup @ 2Hr 7.2 H* (0.5-2.0) mmol/L Lactic Acid Fup @ 4Hr (0.5-2.0) mmol/L Calcium (8.4-10.2) mg/dL Total Bilirubin (0.0-1.0) mg/dL Direct Bilirubin (0.0-0.5) mg/dL AST (5-31) U/L ALT (0-31) U/L Alkaline Phosphatase (39-117) U/L Troponin I High Sens (<3.5-17.0) ng/L C-Reactive Protein (< or = 0.50) mg/dL Total Protein (6.5-8.0) g/dL Albumin (3.5-5.0) g/dL Lipase (8-78) U/L Urine Protein (NEG-TRACE) MG/DL Urine Blood (NEG) Urine Nitrite (NEG) Ur Leukocyte Esterase (NEG) Urine RBC (0) /HPF Urine WBC (0-4) /HPF Salicylates < 5.0 L (15-30) mg/dL Crossmatch 11/11/20 11/11/20 11/12/20 Range/Units 20:13 22:16 04:00 WBC 13.0 H (4.8-10.8) X10*3/uL RBC 2.57 L (4.20-5.50) X10*6/uL Hgb 7.5 L (12.0-16.0) g/dl Hct 24.2 L (37-47) % RDW 19.8 H (11.0-16.0) % Plt Count 114 L (160-400) X10*3/uL MPV 12.8 H (9.4-12.3) fL Absolute Nucleated RBC 0.030 H (0.0-0.012) X10*3/uL Nucleated RBC % (auto) (0.0-0.2) /100WBC Neutrophils % (Manual) (45-73) % Band Neutrophils % 8 H (3-5) % Lymphocytes % (Manual) 19 L (20-40) % Monocytes % (Manual) 1 L (2-11) % Abs Neuts (Manual) 10.4 H (2.2-7.9) X10*3/uL Lymphocytes # (Manual) (0.6-4.8) X10*3/uL Nucleated RBCs (0-0) /100WBC ESR (0-20) MM/HR PT (10.8-13.0) SEC INR (0.9-1.1) ABG pCO2 (32-45) mmHg ABG pO2 (83-108) mmHg ABG HCO3 (22-26) mmol/L Chloride (96-108) mmol/L Carbon Dioxide (22-29) mmol/L Anion Gap (12-20) BUN (9-16) mg/dL Creatinine (0.5-1.4) mg/dL POC Glucose (60-115) mg/dL Random Glucose (60-115) mg/dL Lactic Acid (0.5-2.0) mmol/L Lactic Acid Fup @ 2Hr (0.5-2.0) mmol/L Lactic Acid Fup @ 4Hr 5.3 H* (0.5-2.0) mmol/L Calcium (8.4-10.2) mg/dL Total Bilirubin (0.0-1.0) mg/dL Direct Bilirubin (0.0-0.5) mg/dL AST (5-31) U/L ALT (0-31) U/L Alkaline Phosphatase (39-117) U/L Troponin I High Sens 111.9 H (<3.5-17.0) ng/L C-Reactive Protein (< or = 0.50) mg/dL Total Protein (6.5-8.0) g/dL Albumin (3.5-5.0) g/dL Lipase (8-78) U/L Urine Protein (NEG-TRACE) MG/DL Urine Blood (NEG) Urine Nitrite (NEG) Ur Leukocyte Esterase (NEG) Urine RBC (0) /HPF Urine WBC (0-4) /HPF Salicylates (15-30) mg/dL Crossmatch 11/12/20 11/12/20 11/12/20 Range/Units 04:00 04:00 06:30 WBC (4.8-10.8) X10*3/uL RBC (4.20-5.50) X10*6/uL Hgb (12.0-16.0) g/dl Hct (37-47) % RDW (11.0-16.0) % Plt Count (160-400) X10*3/uL MPV (9.4-12.3) fL Absolute Nucleated RBC (0.0-0.012) X10*3/uL Nucleated RBC % (auto) (0.0-0.2) /100WBC Neutrophils % (Manual) (45-73) % Band Neutrophils % (3-5) % Lymphocytes % (Manual) (20-40) % Monocytes % (Manual) (2-11) % Abs Neuts (Manual) (2.2-7.9) X10*3/uL Lymphocytes # (Manual) (0.6-4.8) X10*3/uL Nucleated RBCs (0-0) /100WBC ESR > 140 H (0-20) MM/HR PT (10.8-13.0) SEC INR (0.9-1.1) ABG pCO2 (32-45) mmHg ABG pO2 (83-108) mmHg ABG HCO3 (22-26) mmol/L Chloride 111 H (96-108) mmol/L Carbon Dioxide 14 L (22-29) mmol/L Anion Gap (12-20) BUN 84 H* (9-16) mg/dL Creatinine 3.65 H (0.5-1.4) mg/dL POC Glucose 151 H (60-115) mg/dL Random Glucose 59 L* (60-115) mg/dL Lactic Acid (0.5-2.0) mmol/L Lactic Acid Fup @ 2Hr (0.5-2.0) mmol/L Lactic Acid Fup @ 4Hr (0.5-2.0) mmol/L Calcium 6.8 L D (8.4-10.2) mg/dL Total Bilirubin (0.0-1.0) mg/dL Direct Bilirubin (0.0-0.5) mg/dL AST (5-31) U/L ALT (0-31) U/L Alkaline Phosphatase (39-117) U/L Troponin I High Sens (<3.5-17.0) ng/L C-Reactive Protein 28.95 H (< or = 0.50) mg/dL Total Protein (6.5-8.0) g/dL Albumin (3.5-5.0) g/dL Lipase (8-78) U/L Urine Protein (NEG-TRACE) MG/DL Urine Blood (NEG) Urine Nitrite (NEG) Ur Leukocyte Esterase (NEG) Urine RBC (0) /HPF Urine WBC (0-4) /HPF Salicylates (15-30) mg/dL Crossmatch 11/12/20 Range/Units 06:42 WBC (4.8-10.8) X10*3/uL RBC (4.20-5.50) X10*6/uL Hgb (12.0-16.0) g/dl Hct (37-47) % RDW (11.0-16.0) % Plt Count (160-400) X10*3/uL MPV (9.4-12.3) fL Absolute Nucleated RBC (0.0-0.012) X10*3/uL Nucleated RBC % (auto) (0.0-0.2) /100WBC Neutrophils % (Manual) (45-73) % Band Neutrophils % (3-5) % Lymphocytes % (Manual) (20-40) % Monocytes % (Manual) (2-11) % Abs Neuts (Manual) (2.2-7.9) X10*3/uL Lymphocytes # (Manual) (0.6-4.8) X10*3/uL Nucleated RBCs (0-0) /100WBC ESR (0-20) MM/HR PT (10.8-13.0) SEC INR (0.9-1.1) ABG pCO2 (32-45) mmHg ABG pO2 (83-108) mmHg ABG HCO3 (22-26) mmol/L Chloride (96-108) mmol/L Carbon Dioxide (22-29) mmol/L Anion Gap (12-20) BUN (9-16) mg/dL Creatinine (0.5-1.4) mg/dL POC Glucose (60-115) mg/dL Random Glucose (60-115) mg/dL Lactic Acid (0.5-2.0) mmol/L Lactic Acid Fup @ 2Hr (0.5-2.0) mmol/L Lactic Acid Fup @ 4Hr (0.5-2.0) mmol/L Calcium (8.4-10.2) mg/dL Total Bilirubin (0.0-1.0) mg/dL Direct Bilirubin (0.0-0.5) mg/dL AST (5-31) U/L ALT (0-31) U/L Alkaline Phosphatase (39-117) U/L Troponin I High Sens (<3.5-17.0) ng/L C-Reactive Protein (< or = 0.50) mg/dL Total Protein (6.5-8.0) g/dL Albumin (3.5-5.0) g/dL Lipase (8-78) U/L Urine Protein (NEG-TRACE) MG/DL Urine Blood (NEG) Urine Nitrite (NEG) Ur Leukocyte Esterase (NEG) Urine RBC (0) /HPF Urine WBC (0-4) /HPF Salicylates (15-30) mg/dL Crossmatch See Detail Short CBC 11/11/20 11/12/20 Range/Units 16:57 04:00 WBC 7.9 13.0 H (4.8-10.8) X10*3/uL Hgb 9.2 L 7.5 L (12.0-16.0) g/dl Hct 29.4 L 24.2 L (37-47) % Plt Count 140 L 114 L (160-400) X10*3/uL BMP 11/11/20 11/12/20 16:57 04:00 Sodium 135 139 Potassium 4.0 3.7 Chloride 105 111 H Carbon Dioxide 10 L* D 14 L BUN 87 H* D 84 H* Creatinine 3.94 H 3.65 H Calcium 7.6 L 6.8 L D Liver Function 11/11/20 Range/Units 16:57 Total Bilirubin 1.7 H (0.0-1.0) mg/dL Direct Bilirubin 1.4 H (0.0-0.5) mg/dL AST 143 H (5-31) U/L ALT 123 H (0-31) U/L Alkaline Phosphatase 471 H D (39-117) U/L Albumin 1.9 L (3.5-5.0) g/dL Urine 11/11/20 Range/Units 17:52 Urine Color BROWN Urine Appearance CLOUDY Urine pH 7.5 (5.0-8.0) Ur Specific [place] 1.020 (1.005-1.025) Urine Protein 2+ H (NEG-TRACE) MG/DL Urine Glucose (UA) NEG (NEG) MG/DL All other labs normal. Assessment and Plan (1) Cholelithiasis: Qualifiers: Biliary obstruction: without biliary obstruction Cholecystitis presence: without cholecystitis Cholelithiasis location: gallbladder Qualified Code(s): K80.20 - Calculus of gallbladder without cholecystitis without obstruction Status: Acute (2) Sacral decubitus ulcer, stage IV: Status: Acute (3) Sepsis: Qualifiers: Sepsis type: sepsis due to unspecified organism Sepsis acute organ dysfunction status: with acute organ dysfunction Severe sepsis acute organ dysfunction type: encephalopathy Severe sepsis shock status: without septic shock Qualified Code(s): A41.9 - Sepsis, unspecified organism; R65.20 - Severe sepsis without septic shock; G93.40 - Encephalopathy, unspecified Status: Acute This is an unfortunate 80-year-old lady who has baseline mental status changes and does not appear to be able to communicate. Patient is bed-bound and we do not have very much history as her son is out of the country and her [employer] SIDING INSTALLER who accompanied her is not her usual ASBESTOS SIDING INSTALLER. Patient has a large grade 4 sacral decubitus ulcer with necrotic tissue as well as ulcers on bilateral heels. Patient has sepsis likely related to a combination of a urinary tract infection as well as this sacral decubitus ulcer that appears to have been present for some time. Patient also presents to the emergency department with dehydration that likely cause acute kidney injury with a creatinine in the 3 and half range. Patient also has elevation of her LFTs which is likely related to shock liver secondary to dehydration. The liver function elevation is only slightly elevated. I believe that kidney function and liver transaminitis should improve with hydration and in reversal of her sepsis. Patient had a lactic acidosis of 7.3 on admission and repeat was 5.3. We have not documented clearing of lactic acidosis as of yet. Patient should have repeat lactic acid levels to docu mentation clearing of the lactic acidosis. Patient also had elevation of her troponins which are likely related to the dehydration and sepsis. Patient is on the medicine service and will be treated for these medical issues that she presented with. A wound care consult will be placed for the sacral decubitus wound and bilateral heel wounds. Once we are able to contact the patient's son who is her healthcare proxy we will discuss possibility of debridement of the sacral decubitus wound which likely has a component of osteomyelitis as the wound is down to bone. This is a very high risk patient and she is very frail to undergo this procedure. Patient had a CT scan abdomen and pelvis with only showed the sacral decubitus ulcer that is visible on physical exam and cholelithiasis without evidence of cholecystitis. Patient also had an ultrasound of the right upper quadrant that documented again cholelithiasis without cholecystitis. I do not believe the patient currently has cholecystit is. She will be treated with antibiotics for her urinary tract infection which will also treat some of the same organisms that are common to cholecystitis if the patient does have a mild cholecystitis. I do not believe any surgical intervention is warranted for the patient's cholelithiasis at this time. We will continue to follow with you. Please call with questions or new developments. I spent about an hour reviewing the chart gathering information from other sources for the patient's history discussing her care with the hospitalist seeing the patient and examining the patient as well as documenting. Procedures Date of Service Date of Service: 11/12/20
[2020-11-12 10:19] LABS: Alanine Aminotransferase 93 U/L (0-31); Albumin Level 1.6 g/dL (3.5-5.0); Alkaline Phosphatase 285 U/L (39-117); Aspartate Amino Transferase 105 U/L (5-31); Bilirubin Direct 1.3 mg/dL (0.0-0.5); Bilirubin Total 1.4 mg/dL (0.0-1.0); Total Protein 9.2 g/dL (6.5-8.0)
--- NOTE | 2020-11-12 10:20 | MHC.CM.PN ---
Addendum entered by Ani Crum 11/12/20 14:05: CODY called the office of pts former PCP, Dr Grossman ([phone]). They do not have a HCP on file for this pt. Original Note: CM CONTACTED PTS CONTRACT ASSOCIATE, AMANUEL LUONG ([phone]) WHO IS LISTED PTS ALTERNATE CONTACT. AMANUEL REPORTS SHE HAS ONLY BEEN THE CONTRACT ASSOCIATE FOR THIS PT FOR 3 MONTHS AND HAS BROUGHT HER TO THE ED TWO OR THREE TIMES. SHE REPORTS SHE BROUGHT HER A MONTH AGO BECAUSE SHE THOUGHT HER LEGS WERE BROKEN BUT THE PTS SON ONLY HAD ONE OF THEM XRAY'D. SHE REPORTS THE PT WAS THEN REFERRED TO A SPECIALIST BUT THEY NEVER DID ANYTHING. SHE REPORTS THE PT HAD A PCP WHO HAD NOT TREATED HER ILLNESSES FOR THE PAST TWO YEARS SO AMANUEL CHANGED HER PCP TO J[facility] GUO. AMANUEL ALSO REPORTS THE PT HAS CANCER WHICH SHE HAS NOT BEEN RECEIVING TREATMENT FOR. SHE REPORTS SHE HAS MADE APPTS FOR THE PT TO ADDRESS ALL OF THESE ISSUES. SHE REPORTS THE PT HAS A PCP APPT ON January (SECOND APPT), [place] [facility] [place] APPT IN NOVEMBER WELL BUT SHE CANNOT REMEMBER THE DATE. AMANUEL REPORTS THE PT IS BED BOUND AT [facility] AND DEPENDENT FOR MOST CARE HOWEVER RECENTLY HAS BEEN DEPENDENT FOR ALL CARE. SHE REPORTS SHE HAS HAD TO FEED HER LIKE A BABY . SHE ALSO REPORTS THE PTS SON LIVES WITH HER AND SHE HAS A TOTAL OF 7 CONTRACT ASSOCIATE HOURS PER DAY. SHE HAS 5 DAYTIME AND 2 NIGHT TIME HOURS. AMANUEL REPORTS THE PTS REGULAR CONTRACT ASSOCIATE AND HER SON WHO LIVES WITH HER, BOTH WENT ON VACATION. AMANUEL REPORTS CONCERN BECAUSE SHE HAS MADE HER ALL OF THESE APPTS AND THE PT NEEDS ALL THIS CARE BUT NONE OF HER FAMILY IS AROUND TO ASSIST. AMANUEL REPORTS THE PTS SON WILL BE BACK ON November. AMANUEL REPORTS WHILE THE PTS SON IS ON VACATION, A FRIEND IS STAYING IN THE HOME SO THAT SOMEONE IS PRESENT WHEN THE CONTRACT ASSOCIATE IS NOT THERE. SHE ALSO REPORTS THE PT IS ACTIVE WITH [employer] [facility]. THE IMM WAS REVIEWED WITH AMANUEL WHO REPORTS SHE HOPES THAT THE PT WILL BE INPATIENT FOR A WHILE . SHE REPORTS THE DC PLAN WOULD BE FOR PT TO RETURN ONCE SHE IS BETTER, AND RESUME HER CONTRACT ASSOCIATE AND [facility] SERVICES. PT IS BED BOUND AND WILL REQUIRE BLS TRANSPORT.
--- NOTE | 2020-11-12 11:31 | MHC.CLN ---
RE: CONSULT PT IS SEVERELY MALNOURISHED CURRENTLY NPO WHEN DIET ADVANCES; RECOMMEND 1500DM DIET WITH ENSURE, [place] AND PROSOURCE BID SUPPLEMENT WILL INCREASE KCALS AND PROMOTE WOUND HEALING SEE ALSO CLINICAL NUTRITION ASSESSMENT
--- NOTE | 2020-11-12 11:47 | P.CNID_ITS ---
History of Present Illness Data of Consult Service Date: 11/12/20 Requesting physician: Dontae Hernandez Primary Care Provider: Unknown Physician HPI Reason for consult: sepsis, gram negative bacteremia,osteomyelitis sacrum She is brought in by [facility] for altered mental status. She has confusion and lethargy She has gram negative rods blood Skin overlying sacrum necrotic and foul smelling and can feel anthony prominences CT scan concern over osteomyelitis Urinalysis pyuria Review of Systems Review of Systems: Yes Unobtainable due to mental status Neurologic: Reports confusion Psychiatric: Psychiatric: Reports confusion [facility] Past Medical History Medical History (Updated 11/12/20 @ 11:53 by Cele Weathers MD) Bacteremia Dementia Diabetes Dyslipidemia Fecal incontinence Hypertension Malnutrition Pressure ulcer, stage 4 Stroke Ulcer Ulcer of sacral region, stage 3 Urinary incontinence Family History Family history: reviewed and not pertinent Social History Social History Household Members: Unknown / Unable to assess Housing: Unknown / Unable to assess Unable to assess alcohol history related to: Unable to respond Alcohol intake: never Smoking Status: Never smoker Use of substances other than those prescribed or required for medical reasons: Unable to respond Advance Directives: No Advance Directives Information Provided: Yes Do you have thoughts of harming others: None Do you have a plan to hurt others: No Plan Recently lost weight without trying: Unsure service: No Current occupational status: unemployed and disabled Meds Allergies Allergy/AdvReac Type Severity Reaction Status Date / Time No Known Allergies Allergy Verified 10/12/20 16:57 [No Known Allergies*] Active Medications: Current Medications Generic Name Dose Route Start Last Admin Trade Name Karol PRN Reason Stop Dose Admin Acetaminophen 650 mg 11/11/20 21:32 Acetaminophen 325 Mg Tablet PO Q6H PRN Pain, Mild (Pain Scale 1-3) Aspirin 81 mg 11/12/20 09:00 11/12/20 09:47 Aspirin Enteric Coated 81 Mg Tablet. PO Not Given DAILY VALENTIN Atorvastatin Calcium 40 mg 11/12/20 09:00 11/12/20 09:47 Atorvastatin Calcium 40 Mg Tablet PO Not Given DAILY VALENTIN Docusate Sodium 100 mg 11/11/20 21:32 Docusate Sodium 100 Mg Capsule PO DAILY PRN Constipation Piperacillin Sod/Tazobactam 50 mls @ 100 mls/hr 11/11/20 21:32 11/12/20 10:22 Sod 3.375 gm/ Sodium Chloride IV Infused Q6H VALENTIN Infusion Vancomycin HCl 500 mg/ Sodium 110 mls @ 110 mls/hr 11/11/20 22:00 11/12/20 00:52 Chloride IV Infused Q48H VALENTIN Infusion Dextrose/Lactated Ringer's 1,000 mls @ 100 mls/hr 11/12/20 06:00 11/12/20 06:05 D5lr IVCONT 80 mls/hr .Q10H VALENTIN Administration Metoprolol Succinate 150 mg 11/12/20 09:00 11/12/20 09:47 Metoprolol Succinate Er 100 Mg Tab.Er.24h PO Not Given DAILY VALENTIN Protocol Ondansetron HCl 4 mg 11/11/20 21:32 Ondansetron Hcl 4 Mg/2 Ml Vial IVPUSH Q8H PRN Nausea and Vomiting Pharmacy Consult 1 each 11/11/20 21:32 Consult Rx Vancomycin Dosing MISCELLANE DAILY PRN Consult order Sodium Chloride 3 ml 11/12/20 00:00 11/12/20 09:20 0.9 % Sodium Chloride Flush 3 Ml Syringe IVFLUSH 3 ml QSHIFT VALENTIN Administration Home Medications Medication Instructions Recorded Confirmed Last Taken Type amlodipine 2.5 mg tablet 2.5 mg PO DAILY 08/20/20 11/11/20 Unknown History aspirin 81 mg tablet,delayed 81 mg PO DAILY 08/20/20 11/11/20 Unknown History release atorvastatin 40 mg tablet 40 mg PO DAILY 08/20/20 11/11/20 Unknown History cetirizine 10 mg tablet 10 mg PO DAILY PRN 08/20/20 11/11/20 Unknown History glipizide 2.5 mg tablet, extended 2.5 mg PO DAILY 08/20/20 11/11/20 Unknown History release 24 hr metoprolol succinate 100 mg 150 mg PO DAILY 08/20/20 11/11/20 Unknown History tablet,extended release 24 hr Physical Exam Vital Signs: Vital Signs: Last Vital Signs Temp 97.5 F 11/12/20 11:38 Pulse 86 11/12/20 11:38 Resp 18 11/12/20 11:38 BP 122/58 L 11/12/20 11:38 Pulse Ox 95 11/12/20 11:17 Body Mass Index 18.4 Const: General: cooperative and confusion Orientation/consciousness: confusion HENMT: Head: Yes normal to inspection Mouth: Normal oral and palatal mucosa present Eyes: General: appearance normal, both eyes and all related structures Resp: Effort & Inspection: normal respiratory effort Cardio: Rate: regular rate Rhythm: regular rhythm GI: Palpation (GI): Soft to palpation and nontender : General: Yes no CVA tenderness Back/Spine/Pelvis: Back: no CVA tenderness Back/spine/pelvis image: 1. sacral ulcer 5 x8 2. sacral ulcer 5 x 8 approximately Skin: General skin exam: no rashes or lesions noted Neuro: General: confusion Extrem: General: Yes normal to inspection Results Labs CBC & Chem 7: 11/12/20 04:00 11/12/20 04:00 Labs: Short CBC 11/11/20 11/11/20 11/12/20 Range/Units 16:57 16:57 04:00 WBC 7.9 13.0 H (4.8-10.8) X10*3/uL Hgb 9.2 L 7.5 L (12.0-16.0) g/dl Hct 29.4 L 24.2 L (37-47) % Plt Count 140 L 114 L (160-400) X10*3/uL Creatinine 3.94 H (0.5-1.4) mg/dL 11/12/20 Range/Units 04:00 WBC (4.8-10.8) X10*3/uL Hgb (12.0-16.0) g/dl Hct (37-47) % Plt Count (160-400) X10*3/uL Creatinine 3.65 H (0.5-1.4) mg/dL BMP 11/11/20 11/12/20 16:57 04:00 Sodium 135 139 Potassium 4.0 3.7 Chloride 105 111 H Carbon Dioxide 10 L* D 14 L BUN 87 H* D 84 H* Creatinine 3.94 H 3.65 H Calcium 7.6 L 6.8 L D Liver Function 11/11/20 11/12/20 Range/Units 16:57 04:00 Total Bilirubin 1.7 H 1.4 H (0.0-1.0) mg/dL Direct Bilirubin 1.4 H 1.3 H (0.0-0.5) mg/dL AST 143 H 105 H (5-31) U/L ALT 123 H 93 H (0-31) U/L Alkaline Phosphatase 471 H D 285 H D (39-117) U/L Albumin 1.9 L 1.6 L (3.5-5.0) g/dL Urine 11/11/20 Range/Units 17:52 Urine Color BROWN Urine Appearance CLOUDY Urine pH 7.5 (5.0-8.0) Ur Specific [place] 1.020 (1.005-1.025) Urine Protein 2+ H (NEG-TRACE) MG/DL Urine Glucose (UA) NEG (NEG) MG/DL Microbiology Microbiology Results: Microbiology 11/11/20 16:58 Blood - Venous Blood Culture - Preliminary 11/11/20 16:57 Blood - Venous Blood Culture - Preliminary Assessment and Plan (1) Sepsis: Qualifiers: Sepsis acute organ dysfunction status: with acute organ dysfunction Sepsis type: sepsis due to unspecified organism Severe sepsis acute organ dysfunction type: encephalopathy Severe sepsis shock status: without septic shock Qualified Code(s): A41.9 - Sepsis, unspecified organism; R65.20 - Severe sepsis without septic shock; G93.40 - Encephalopathy, unspecified Status: Acute (2) Osteomyelitis of sacrum: Problem details: She has suggestive CT and anthony prominences felt Gram negative source urine concern Status: Acute Continue Zosyn (3) Bacteremia: Problem details: gram negative Status: Acute IV Zosyn,await culture Stop Vancomycin especially with increased creatinine and no gram positive found
--- NOTE | 2020-11-12 13:05 | P.PNIM_ITS ---
Subjective Subjective Date of Service: 11/12/20 Interval History: seen and examined not talking unable to ROS looks comfortable as rest, but moaning in pain when moved called son Aj (listed as primary contact) @ [phone]. Was not at home and given his work phone by his -- [phone]. He gave permission for blood transfusion. called later in the day with assistant housekeeping manager cali over the phone. son reports that he lives in [place] and that his older brother lives with the mother, but he doesn't know where his brother is. He reports that when he visted his mother about 3 months back, she was doing well. He does not know who the HCP is. ROS unreliable Physical Exam Vital Signs: Vital Signs: Last Vital Signs Temp 97.5 F 11/12/20 11:38 Pulse 86 11/12/20 11:38 Resp 18 11/12/20 11:38 BP 122/58 L 11/12/20 11:38 Pulse Ox 95 11/12/20 11:17 Body Mass Index 18.4 Const: Other: General - no acute distress, appears comfortable Cardiovascular - regular rate and rhythm, S1-S2 Lungs - normal respiratory effort, clear to auscultation bilaterally, no w heezing Abdomen - soft, nontender, no rebound or guarding Extremities - no edema bilaterally Neuro - non-verbal Skin - Objective Data Current Medications Generic Name Dose Route Start Last Admin Trade Name Freq PRN Reason Stop Dose Admin Acetaminophen 650 mg 11/11/20 21:32 Acetaminophen 325 Mg Tablet PO Q6H PRN Pain, Mild (Pain Scale 1-3) Aspirin 81 mg 11/12/20 09:00 11/12/20 09:47 Aspirin Enteric Coated 81 Mg Tablet. PO Not Given DAILY VALENTIN Atorvastatin Calcium 40 mg 11/12/20 09:00 11/12/20 09:47 Atorvastatin Calcium 40 Mg Tablet PO Not Given DAILY VALENTIN Docusate Sodium 100 mg 11/11/20 21:32 Docusate Sodium 100 Mg Capsule PO DAILY PRN Constipation Piperacillin Sod/Tazobactam 50 mls @ 100 mls/hr 11/11/20 21:32 11/12/20 10:22 Sod 3.375 gm/ Sodium Chloride IV Infused Q6H VALENTIN Infusion Vancomycin HCl 500 mg/ Sodium 110 mls @ 110 mls/hr 11/11/20 22:00 11/12/20 00:52 Chloride IV Infused Q48H VALENTIN Infusion Dextrose/Lactated Ringer's 1,000 mls @ 100 mls/hr 11/12/20 06:00 11/12/20 06:05 D5lr IVCONT 80 mls/hr .Q10H VALENTIN Administration Metoprolol Succinate 150 mg 11/12/20 09:00 11/12/20 09:47 Metoprolol Succinate Er 100 Mg Tab.Er.24h PO Not Given DAILY VALENTIN Protocol Ondansetron HCl 4 mg 11/11/20 21:32 Ondansetron Hcl 4 Mg/2 Ml Vial IVPUSH Q8H PRN Nausea and Vomiting Pharmacy Consult 1 each 11/11/20 21:32 Consult Rx Vancomycin Dosing MISCELLANE DAILY PRN Consult order Sodium Chloride 3 ml 11/12/20 00:00 11/12/20 09:20 0.9 % Sodium Chloride Flush 3 Ml Syringe IVFLUSH 3 ml QSHIFT VALENTIN Administration Labs CBC & Chem 7: 11/12/20 04:00 11/12/20 04:00 Microbiology Microbiology Results: Microbiology 11/11/20 Unknown Urine clean catch - Catheterized Urine Culture - Preliminary Culture in progress. 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 Severe Sepsis, POA 1a. Gram Negative Bacteremia multiple possible sources -- see below f/u cultures -- growing GNB in the blood 2. Infected stage IV decubitus ulcer, probable osteo IV zosyn received 1 dose vancomyin -- discontinued in light of GENE and no GPC in blood thus far General Surgery consulted -- may need I&D; (patients family information (name/telephone) relayed to Gen. Surg for consent) 3. GENE from sepsis / dehydration continue ffluids I/O 4. UTI zosyn cultures 5. Acute toxic/metabolic encephalopathy due to above conditions baseline unclear 6. Acute Anemia check h/h hold aspirin + lovenox transfuse 1 unit prbc 7. Severe protein calorie Malnutrition dietary consult, supplements Full Code DVT pptx, mehcanical due to anemia requiring transfusion.
[2020-11-12 15:12] LABS: Lactic Acid 3.5 mmol/L (0.5-2.0)
[2020-11-12 15:16] LABS: Anion Gap 17 (12-20); Blood Urea Nitrogen 85 mg/dL (9-16); Calcium 6.8 mg/dL (8.4-10.2); Carbon Dioxide 16 mmol/L (22-29); Chloride 111 mmol/L (96-108); Creatinine Clr Calc Pharmacy 8.1; Estimated Glomerular Filt Rate 12; Glucose Random 79 mg/dL (60-115); Potassium 3.6 mmol/L (3.3-5.1); Sodium 140 mmol/L (135-145)
[2020-11-12 16:49] LABS: Reflex Lactate? Lactic Acid Added
--- NOTE | 2020-11-12 17:25 | P.CONWO_ITS ---
History of Present Illness Data of Consult Service Date: 11/12/20 Requesting physician: Dontae YA Reason for consult: sacral and foot wounds The patient is a 80-year-old female who came into the hospital last night with confusion and situation which look like sepsis. On examination she was noted to have a significant sacral decubitus ulcer and wound as well as other pressure wounds of her right heel and foot. The patient has had dehydration malnutrition at home and it seems like this breakdown has been ongoing. Difficult to get a history and story as the patient is confused and on able to communicate reliably Review of Systems Review of Systems: Yes Unobtainable due to mental condition and Unobtainable due to mental status PMFSH Medical History Bacteremia Dementia Diabetes Dyslipidemia Fecal incontinence Hypertension Malnutrition Pressure ulcer, stage 4 Stroke Ulcer Ulcer of sacral region, stage 3 Urinary incontinence Family history: reviewed and not pertinent Social History Household Members: Unknown / Unable to assess Housing: Unknown / Unable to assess Unable to assess alcohol history related to: Unable to respond Alcohol intake: never Smoking Status: Never smoker Use of substances other than those prescribed or required for medical reasons: Unable to respond Currently Displaying Signs/Symptoms of Drug Intoxication Withdrawal: No Advance Directives: No Advance Directives Information Provided: Yes Do you have thoughts of harming others: None Do you have a plan to hurt others: No Plan Recently lost weight without trying: Unsure service: No Current occupational status: unemployed and disabled Meds Allergies Allergy/AdvReac Type Severity Reaction Status Date / Time No Known Allergies Allergy Verified 10/12/20 16:57 [No Known Allergies*] Active Medications: Current Medications Generic Name Dose Route Start Last Admin Trade Name Freq PRN Reason Stop Dose Admin Acetaminophen 650 mg 11/11/20 21:32 Acetaminophen 325 Mg Tablet PO Q6H PRN Pain, Mild (Pain Scale 1-3) Aspirin 81 mg 11/12/20 09:00 11/12/20 09:47 Aspirin Enteric Coated 81 Mg Tablet. PO Not Given DAILY VALENTIN Atorvastatin Calcium 40 mg 11/12/20 09:00 11/12/20 09:47 Atorvastatin Calcium 40 Mg Tablet PO Not Given DAILY [facility] Docusate Sodium 100 mg 11/11/20 21:32 Docusate Sodium 100 Mg Capsule PO DAILY PRN Constipation Piperacillin Sod/Tazobactam 50 mls @ 100 mls/hr 11/11/20 21:32 11/12/20 16:10 Sod 3.375 gm/ Sodium Chloride IV Infused Q6H [facility] Infusion Dextrose/Lactated Ringer's 1,000 mls @ 100 mls/hr 11/12/20 06:00 11/12/20 06:05 D5lr IVCONT 80 mls/hr .Q10H [facility] Administration Metoprolol Succinate 150 mg 11/12/20 09:00 11/12/20 09:47 Metoprolol Succinate Er 100 Mg Tab.Er.24h PO Not Given DAILY [facility] Protocol Ondansetron HCl 4 mg 11/11/20 21:32 Ondansetron Hcl 4 Mg/2 Ml Vial IVPUSH Q8H PRN Nausea and Vomiting Pharmacy Consult 1 each 11/11/20 21:32 Consult Rx Vancomycin Dosing MISCELLANE DAILY PRN Consult order Sodium Chloride 3 ml 11/12/20 00:00 11/12/20 15:35 0.9 % Sodium Chloride Flush 3 Ml Syringe IVFLUSH 3 ml QSHIFT [facility] Administration Home Medications Medication Instructions Recorded Confirmed Last Taken Type amlodipine 2.5 mg tablet 2.5 mg PO DAILY 08/20/20 11/11/20 Unknown History aspirin 81 mg tablet,delayed 81 mg PO DAILY 08/20/20 11/11/20 Unknown History release atorvastatin 40 mg tablet 40 mg PO DAILY 08/20/20 11/11/20 Unknown History cetirizine 10 mg tablet 10 mg PO DAILY PRN 08/20/20 11/11/20 Unknown History glipizide 2.5 mg tablet, extended 2.5 mg PO DAILY 08/20/20 11/11/20 Unknown History release 24 hr metoprolol succinate 100 mg 150 mg PO DAILY 08/20/20 11/11/20 Unknown History tablet,extended release 24 hr Physical Exam Vital Signs and Narrative: Vital Signs: Last Vital Signs Temp 98 F 11/12/20 15:11 Pulse 89 11/12/20 15:11 Resp 18 11/12/20 15:11 BP 148/67 H 11/12/20 15:11 Pulse Ox 90 L 11/12/20 15:11 Body Mass Index 18.4 Const: Other: Grimacing in pain, moaning and whining when moved Cardio: Other: Neuro - non-verbal Skin - : Other: Wang catheter in place with pinkish output Skin: Other: There is a large about 5 cm grade 4 sacral decubitus wound with significantly necrotic gangrenous tissue down to and involving sacral bone. There is also some deep tissue injury tissue just at the edges of the skin. Pt is quite think and underweight. Extrem: Other: the right heel has some dry gangrene wound consistent with an unstageable heel ulcer. no evidence of infection General: Yes normal to inspection Results Labs CBC and Chem 7: 11/12/20 04:00 11/12/20 14:44 Labs: Laboratory Results - last 24 hr 11/11/20 11/11/20 11/11/20 16:57 16:57 16:57 MCV 92.7 MCH 29.0 MCHC 31.3 RDW 19.7 H Plt Count 140 L MPV 11.2 Immature Gran % (Auto) Cancelled Neut % (Auto) Cancelled Lymph % (Auto) Cancelled [place] % (Auto) Cancelled Eos % (Auto) Cancelled Baso % (Auto) Cancelled Lymph # (Auto) Cancelled [place] # (Auto) Cancelled Eos # (Auto) Cancelled Baso # (Auto) Cancelled Abs Immat Gran (auto) Cancelled Absolute Neuts (auto) Cancelled Absolute Nucleated RBC 0.070 H Nucleated RBC % (auto) 0.9 H Neutrophils % (Manual) 80 H Band Neutrophils % 11 H Lymphocytes % (Manual) 1 L Atypical Lymphs % (Man) 2 Monocytes % (Manual) 6 Abs Neuts (Manual) 7.2 Lymphocytes # (Manual) 0.1 L Atyp Lymphs # (Manual) 0.2 Monocytes # (Manual) 0.5 Nucleated RBCs 3 H Toxic Vacuolation Dohle Bodies Platelet Estimate SLIGHTLY DECREASED Large Platelets Plt Morphology Comment NORMAL RBC Morphology NORMAL Polychromasia Ovalocytes Acanthocytes (Spur) Schistocytes ESR PT 17.6 H INR 1.5 H ABG pH ABG pCO2 ABG pO2 ABG HCO3 ABG O2 Saturation ABG Base Excess Oxygen Given Anion Gap 24 H Estim Creat Clear Calc 7.1 Estimated GFR 11 POC Glucose Random Glucose 114 Lactic Acid Lactic Acid Fup @ 2Hr Lactic Acid Fup @ 4Hr Calcium 7.6 L Total Bilirubin 1.7 H Direct Bilirubin 1.4 H AST 143 H ALT 123 H Alkaline Phosphatase 471 H D Troponin I High Sens C-Reactive Protein Total Protein 11.2 H Albumin 1.9 L Lipase 91 H Urine Color Urine Appearance Urine pH Ur Specific [place] Urine Protein Urine Glucose (UA) Urine Ketones Urine Blood Urine Nitrite Ur Leukocyte Esterase Urine RBC Urine WBC Ur Squamous Epith Cells Urine Bacteria Salicylates Acetaminophen Ethylene Glycol Volat Analys Perform On Ethyl Alcohol Methyl Alcohol Level Coronavirus (PCR) Influenza Type A (PCR) Influenza Type B (PCR) RSV RNA Qual (PCR) Blood Type Antibody Screen Crossmatch 11/11/20 11/11/20 11/11/20 16:57 16:57 17:52 MCV MCH MCHC RDW Plt Count MPV Immature Gran % (Auto) Neut % (Auto) Lymph % (Auto) [place] % (Auto) Eos % (Auto) Baso % (Auto) Lymph # (Auto) [place] # (Auto) Eos # (Auto) Baso # (Auto) Abs Immat Gran (auto) Absolute Neuts (auto) Absolute Nucleated RBC Nucleated RBC % (auto) Neutrophils % (Manual) Band Neutrophils % Lymphocytes % (Manual) Atypical Lymphs % (Man) Monocytes % (Manual) Abs Neuts (Manual) Lymphocytes # (Manual) Atyp Lymphs # (Manual) Monocytes # (Manual) Nucleated RBCs Toxic Vacuolation Dohle Bodies Platelet Estimate Large Platelets Plt Morphology Comment RBC Morphology Polychromasia Ovalocytes Acanthocytes (Spur) Schistocytes ESR PT INR ABG pH ABG pCO2 ABG pO2 ABG HCO3 ABG O2 Saturation ABG Base Excess Oxygen Given Anion Gap Estim Creat Clear Calc Estimated GFR POC Glucose Random Glucose Lactic Acid 10.7 H* Lactic Acid Fup @ 2Hr Lactic Acid Fup @ 4Hr Calcium Total Bilirubin Direct Bilirubin AST ALT Alkaline Phosphatase Troponin I High Sens 109.8 H C-Reactive Protein Total Protein Albumin Lipase Urine Color Urine Appearance Urine pH Ur Specific [place] Urine Protein Urine Glucose (UA) Urine Ketones Urine Blood Urine Nitrite Ur Leukocyte Esterase Urine RBC Urine WBC Ur Squamous Epith Cells Urine Bacteria Salicylates Acetaminophen Ethylene Glycol Volat Analys Perform On Ethyl Alcohol Methyl Alcohol Level Coronavirus (PCR) NEGATIVE Influenza Type A (PCR) NEGATIVE Influenza Type B (PCR) NEGATIVE RSV RNA Qual (PCR) NEGATIVE Blood Type Antibody Screen Crossmatch 11/11/20 11/11/20 11/11/20 17:52 18:19 19:31 MCV MCH MCHC RDW Plt Count MPV Immature Gran % (Auto) Neut % (Auto) Lymph % (Auto) [place] % (Auto) Eos % (Auto) Baso % (Auto) Lymph # (Auto) [place] # (Auto) Eos # (Auto) Baso # (Auto) Abs Immat Gran (auto) Absolute Neuts (auto) Absolute Nucleated RBC Nucleated RBC % (auto) Neutrophils % (Manual) Band Neutrophils % Lymphocytes % (Manual) Atypical Lymphs % (Man) Monocytes % (Manual) Abs Neuts (Manual) Lymphocytes # (Manual) Atyp Lymphs # (Manual) Monocytes # (Manual) Nucleated RBCs Toxic Vacuolation Dohle Bodies Platelet Estimate Large Platelets Plt Morphology Comment RBC Morphology Polychromasia Ovalocytes Acanthocytes (Spur) Schistocytes ESR PT INR ABG pH 7.35 ABG pCO2 21 L ABG pO2 79 L ABG HCO3 12 L ABG O2 Saturation TNP ABG Base Excess -11.1 Oxygen Given ROOM AIR Anion Gap Estim Creat Clear Calc Estimated GFR POC Glucose Random Glucose Lactic Acid Lactic Acid Fup @ 2Hr 7.2 H* Lactic Acid Fup @ 4Hr Calcium Total Bilirubin Direct Bilirubin AST ALT Alkaline Phosphatase Troponin I High Sens C-Reactive Protein Total Protein Albumin Lipase Urine Color BROWN Urine Appearance CLOUDY Urine pH 7.5 Ur Specific [place] 1.020 Urine Protein 2+ H Urine Glucose (UA) NEG Urine Ketones 5 Urine Blood 2+ H Urine Nitrite POS H Ur Leukocyte Esterase 2+ H Urine RBC 50-75 H Urine WBC TNTC H Ur Squamous Epith Cells NONE Urine Bacteria 4+ Salicylates Acetaminophen Ethylene Glycol Volat Analys Perform On Ethyl Alcohol Methyl Alcohol Level Coronavirus (PCR) Influenza Type A (PCR) Influenza Type B (PCR) RSV RNA Qual (PCR) Blood Type Antibody Screen Crossmatch 11/11/20 11/11/20 11/11/20 20:13 20:13 20:13 MCV MCH MCHC RDW Plt Count MPV Immature Gran % (Auto) Neut % (Auto) Lymph % (Auto) [place] % (Auto) Eos % (Auto) Baso % (Auto) Lymph # (Auto) [place] # (Auto) Eos # (Auto) Baso # (Auto) Abs Immat Gran (auto) Absolute Neuts (auto) Absolute Nucleated RBC Nucleated RBC % (auto) Neutrophils % (Manual) Band Neutrophils % Lymphocytes % (Manual) Atypical Lymphs % (Man) Monocytes % (Manual) Abs Neuts (Manual) Lymphocytes # (Manual) Atyp Lymphs # (Manual) Monocytes # (Manual) Nucleated RBCs Toxic Vacuolation Dohle Bodies Platelet Estimate Large Platelets Plt Morphology Comment RBC Morphology Polychromasia Ovalocytes Acanthocytes (Spur) Schistocytes ESR PT INR ABG pH ABG pCO2 ABG pO2 ABG HCO3 ABG O2 Saturation ABG Base Excess Oxygen Given Anion Gap Estim Creat Clear Calc Estimated GFR POC Glucose Random Glucose Lactic Acid Lactic Acid Fup @ 2Hr Lactic Acid Fup @ 4Hr Calcium Total Bilirubin Direct Bilirubin AST ALT Alkaline Phosphatase Troponin I High Sens C-Reactive Protein Total Protein Albumin Lipase Urine Color Urine Appearance Urine pH Ur Specific [place] Urine Protein Urine Glucose (UA) Urine Ketones Urine Blood Urine Nitrite Ur Leukocyte Esterase Urine RBC Urine WBC Ur Squamous Epith Cells Urine Bacteria Salicylates < 5.0 L Acetaminophen 17 Ethylene Glycol NONE DETECTED Volat Analys Perform On WHOLE BLOOD Ethyl Alcohol < 10 Methyl Alcohol Level NONE DETECTED Coronavirus (PCR) Influenza Type A (PCR) Influenza Type B (PCR) RSV RNA Qual (PCR) Blood Type Antibody Screen Crossmatch 11/11/20 11/11/20 11/11/20 20:13 21:07 22:16 MCV MCH MCHC RDW Plt Count MPV Immature Gran % (Auto) Neut % (Auto) Lymph % (Auto) [place] % (Auto) Eos % (Auto) Baso % (Auto) Lymph # (Auto) [place] # (Auto) Eos # (Auto) Baso # (Auto) Abs Immat Gran (auto) Absolute Neuts (auto) Absolute Nucleated RBC Nucleated RBC % (auto) Neutrophils % (Manual) Band Neutrophils % Lymphocytes % (Manual) Atypical Lymphs % (Man) Monocytes % (Manual) Abs Neuts (Manual) Lymphocytes # (Manual) Atyp Lymphs # (Manual) Monocytes # (Manual) Nucleated RBCs Toxic Vacuolation Dohle Bodies Platelet Estimate Large Platelets Plt Morphology Comment RBC Morphology Polychromasia Ovalocytes Acanthocytes (Spur) Schistocytes ESR PT INR ABG pH ABG pCO2 ABG pO2 ABG HCO3 ABG O2 Saturation ABG Base Excess Oxygen Given Anion Gap Estim Creat Clear Calc Estimated GFR POC Glucose 102 Random Glucose Lactic Acid Lactic Acid Fup @ 2Hr Lactic Acid Fup @ 4Hr 5.3 H* Calcium Total Bilirubin Direct Bilirubin AST ALT Alkaline Phosphatase Troponin I High Sens 111.9 H C-Reactive Protein Total Protein Albumin Lipase Urine Color Urine Appearance Urine pH Ur Specific [place] Urine Protein Urine Glucose (UA) Urine Ketones Urine Blood Urine Nitrite Ur Leukocyte Esterase Urine RBC Urine WBC Ur Squamous Epith Cells Urine Bacteria Salicylates Acetaminophen Ethylene Glycol Volat Analys Perform On Ethyl Alcohol Methyl Alcohol Level Coronavirus (PCR) Influenza Type A (PCR) Influenza Type B (PCR) RSV RNA Qual (PCR) Blood Type Antibody Screen Crossmatch 11/12/20 11/12/20 11/12/20 04:00 04:00 04:00 MCV 94.2 MCH 29.2 MCHC 31.0 RDW 19.8 H Plt Count 114 L MPV 12.8 H Immature Gran % (Auto) Cancelled Neut % (Auto) Cancelled Lymph % (Auto) Cancelled [place] % (Auto) Cancelled Eos % (Auto) Cancelled Baso % (Auto) Cancelled Lymph # (Auto) Cancelled [place] # (Auto) Cancelled Eos # (Auto) Cancelled Baso # (Auto) Cancelled Abs Immat Gran (auto) Cancelled Absolute Neuts (auto) Cancelled Absolute Nucleated RBC 0.030 H Nucleated RBC % (auto) 0.2 Neutrophils % (Manual) 72 Band Neutrophils % 8 H Lymphocytes % (Manual) 19 L Atypical Lymphs % (Man) Monocytes % (Manual) 1 L Abs Neuts (Manual) 10.4 H Lymphocytes # (Manual) 2.5 Atyp Lymphs # (Manual) Monocytes # (Manual) 0.1 Nucleated RBCs Toxic Vacuolation PRESENT Dohle Bodies PRESENT Platelet Estimate DECREASED Large Platelets PRESENT Plt Morphology Comment NORMAL RBC Morphology NOTED Polychromasia 1+ Ovalocytes 1+ Acanthocytes (Spur) 1+ Schistocytes 1+ ESR > 140 H PT INR ABG pH ABG pCO2 ABG pO2 ABG HCO3 ABG O2 Saturation ABG Base Excess Oxygen Given Anion Gap 18 Estim Creat Clear Calc 8.2 Estimated GFR 12 POC Glucose Random Glucose 59 L* Lactic Acid Lactic Acid Fup @ 2Hr Lactic Acid Fup @ 4Hr Calcium 6.8 L D Total Bilirubin 1.4 H Direct Bilirubin 1.3 H AST 105 H ALT 93 H Alkaline Phosphatase 285 H D Troponin I High Sens C-Reactive Protein 28.95 H Total Protein 9.2 H Albumin 1.6 L Lipase Urine Color Urine Appearance Urine pH Ur Specific [place] Urine Protein Urine Glucose (UA) Urine Ketones Urine Blood Urine Nitrite Ur Leukocyte Esterase Urine RBC Urine WBC Ur Squamous Epith Cells Urine Bacteria Salicylates Acetaminophen Ethylene Glycol Volat Analys Perform On Ethyl Alcohol Methyl Alcohol Level Coronavirus (PCR) Influenza Type A (PCR) Influenza Type B (PCR) RSV RNA Qual (PCR) Blood Type Antibody Screen Crossmatch 11/12/20 11/12/20 11/12/20 06:30 06:42 14:44 MCV MCH MCHC RDW Plt Count MPV Immature Gran % (Auto) Neut % (Auto) Lymph % (Auto) [place] % (Auto) Eos % (Auto) Baso % (Auto) Lymph # (Auto) [place] # (Auto) Eos # (Auto) Baso # (Auto) Abs Immat Gran (auto) Absolute Neuts (auto) Absolute Nucleated RBC Nucleated RBC % (auto) Neutrophils % (Manual) Band Neutrophils % Lymphocytes % (Manual) Atypical Lymphs % (Man) Monocytes % (Manual) Abs Neuts (Manual) Lymphocytes # (Manual) Atyp Lymphs # (Manual) Monocytes # (Manual) Nucleated RBCs Toxic Vacuolation Dohle Bodies Platelet Estimate Large Platelets Plt Morphology Comment RBC Morphology Polychromasia Ovalocytes Acanthocytes (Spur) Schistocytes ESR PT INR ABG pH ABG pCO2 ABG pO2 ABG HCO3 ABG O2 Saturation ABG Base Excess Oxygen Given Anion Gap 17 Estim Creat Clear Calc 8.1 Estimated GFR 12 POC Glucose 151 H Random Glucose 79 Lactic Acid Lactic Acid Fup @ 2Hr Lactic Acid Fup @ 4Hr Calcium 6.8 L Total Bilirubin Direct Bilirubin AST ALT Alkaline Phosphatase Troponin I High Sens C-Reactive Protein Total Protein Albumin Lipase Urine Color Urine Appearance Urine pH Ur Specific [place] Urine Protein Urine Glucose (UA) Urine Ketones Urine Blood Urine Nitrite Ur Leukocyte Esterase Urine RBC Urine WBC Ur Squamous Epith Cells Urine Bacteria Salicylates Acetaminophen Ethylene Glycol Volat Analys Perform On Ethyl Alcohol Methyl Alcohol Level Coronavirus (PCR) Influenza Type A (PCR) Influenza Type B (PCR) RSV RNA Qual (PCR) Blood Type O Positive Antibody Screen NEGATIVE Crossmatch See Detail 11/12/20 14:44 MCV MCH MCHC RDW Plt Count MPV Immature Gran % (Auto) Neut % (Auto) Lymph % (Auto) [place] % (Auto) Eos % (Auto) Baso % (Auto) Lymph # (Auto) [place] # (Auto) Eos # (Auto) Baso # (Auto) Abs Immat Gran (auto) Absolute Neuts (auto) Absolute Nucleated RBC Nucleated RBC % (auto) Neutrophils % (Manual) Band Neutrophils % Lymphocytes % (Manual) Atypical Lymphs % (Man) Monocytes % (Manual) Abs Neuts (Manual) Lymphocytes # (Manual) Atyp Lymphs # (Manual) Monocytes # (Manual) Nucleated RBCs Toxic Vacuolation Dohle Bodies Platelet Estimate Large Platelets Plt Morphology Comment RBC Morphology Polychromasia Ovalocytes Acanthocytes (Spur) Schistocytes ESR PT INR ABG pH ABG pCO2 ABG pO2 ABG HCO3 ABG O2 Saturation ABG Base Excess Oxygen Given Anion Gap Estim Creat Clear Calc Estimated GFR POC Glucose Random Glucose Lactic Acid 3.5 H* Lactic Acid Fup @ 2Hr Lactic Acid Fup @ 4Hr Calcium Total Bilirubin Direct Bilirubin AST ALT Alkaline Phosphatase Troponin I High Sens C-Reactive Protein Total Protein Albumin Lipase Urine Color Urine Appearance Urine pH Ur Specific [place] Urine Protein Urine Glucose (UA) Urine Ketones Urine Blood Urine Nitrite Ur Leukocyte Esterase Urine RBC Urine WBC Ur Squamous Epith Cells Urine Bacteria Salicylates Acetaminophen Ethylene Glycol Volat Analys Perform On Ethyl Alcohol Methyl Alcohol Level Coronavirus (PCR) Influenza Type A (PCR) Influenza Type B (PCR) RSV RNA Qual (PCR) Blood Type Antibody Screen Crossmatch Imaging Radiologist's Impressions: Impressions Abdomen/Pelvis CT 11/11/20 18:12 IMPRESSION: 1. Decubitus ulcer posterior to the coccyx with extension inferior and slightly to the left of midline. There is no well-defined fluid collection present. There is subtle cortical irregularity of the underlying coccyx which raises the possibility for osteomyelitis. 2. Diffuse circumferential thickening of the rectum suggesting proctitis. Clinical correlation recommended. 3. Diffusely decreased liver attenuation suggesting hepatic steatosis. 4. Cholelithiasis. Abdomen Ultrasound 11/11/20 19:13 IMPRESSION: Liver appears slightly echogenic suggesting hepatic steatosis. On the CT scan today, the liver is only a couple of Hounsfield units higher in attenuation than the spleen. Assessment and Plan (1) Sepsis: Qualifiers: Sepsis type: sepsis due to unspecified organism Sepsis acute organ dysfunction status: with acute organ dysfunction Severe sepsis acute organ dysfunction type: encephalopathy Severe sepsis shock status: without septic shock Qualified Code(s): A41.9 - Sepsis, unspecified organism; R65.20 - Severe sepsis without septic shock; G93.40 - Encephalopathy, unspecified Status: Acute (2) Osteomyelitis of sacrum: Problem details: Large wound - wet to dry dressing with betaine saline and pt needs OR debridement of this. Needs general surgical consult. offload area etc but if septic need to get rid of this devitalized tissue which is most likely contributing to her sepsis. Findings also by imaging consistent with osteomyelitis - at this point follow ID recommendations and continue with resuscitation of patient. Status: Acute (3) Encephalopathy: Status: Acute (4) Acute UTI: Status: Acute (5) Proctitis: Status: Acute (6) Elevated troponin: Status: Acute (7) Malnutrition: Qualifiers: Malnutrition type: protein-calorie malnutrition Protein-calorie malnutrition severity: severe Qualified Code(s): E43 - Unspecified severe protein-calorie malnutrition Problem details: need increase nutrition for wound care Status: Acute (8) Lactic acidosis: Status: Acute (9) GENE (acute kidney injury): Status: Acute (10) Transaminitis: Status: Acute (11) Cholelithiasis: Qualifiers: Biliary obstruction: without biliary obstruction Cholecystitis presence: without cholecystitis Cholelithiasis location: gallbladder Qualified Code(s): K80.20 - Calculus of gallbladder without cholecystitis without obst ruction Status: Acute dietary consult, supplements Full Code DVT pptx, mehcanical due to anemia requiring transfusion.
[2020-11-12 17:32] LABS: ~Lactic Acid-LAB USE ONLY 3.4 mmol/L (0.5-2.0)
[2020-11-12 19:02] LABS: Reflex Lactate? 2 Y
[2020-11-12] MEDS: Dextrose 5 % and Lactated Ring 1,000 ML 100 ML IVCONT (19:39)
[2020-11-12] MEDS: Morphine Sulfate 4 MG/ML CARTRIDGE 2 MG IVPUSH (21:48)
[2020-11-13] VITALS (21 sets, daily range): BP systolic 72–138; BP diastolic 43–80; PULSE 90–107; RESP 18–26; TEMP 36.3–37.1; O2SAT 95–100; BMI 18.4
--- NOTE | 2020-11-13 | ECG_ITS ---
Test Reason : CP Blood Pressure : / mmHG Vent. Rate : 097 BPM Atrial Rate : 097 BPM P-R Int : 162 ms QRS Dur : 062 ms QT Int : 388 ms P-R-T Axes : 006 -28 -17 degrees QTc Int : 492 ms Artifact in tracing Normal sinus rhythm Cannot exclude old Inferior infarct , age undetermined Abnormal ECG No significant changes when compared with the previous EKG of 11 nov 2020 Referred By: Spencer Trevino Electronically Signed By:ROBINSON FABIAN
[2020-11-13 01:18] LABS: OBS Int Ctl Valid YES; OBS1 POS (NEG)
[2020-11-13] MEDS: Piperacillin Sodium/Tazobactam 3.375 GM in 0.9 % Sodium Chloride 50 ML IV (04:05)
[2020-11-13] MEDS: Morphine Sulfate 4 MG/ML CARTRIDGE 2 MG IVPUSH ×2 (04:44→11:07)
[2020-11-13] MEDS: Dextrose 5 % and Lactated Ring 1,000 ML 100 ML IVCONT (04:46)
[2020-11-13 07:07] LABS: NRBC Pct Auto 0.3 /100WBC (0.0-0.2)
[2020-11-13 07:09] LABS: Hematocrit 28.2 % (37-47); Hemoglobin 9.2 g/dl (12.0-16.0); Mean Corpuscular HGB Conc 32.6 g/dl (31.0-35.0); Mean Corpuscular Hemoglobin 29.7 pg (27.0-33.0); Mean Platelet Volume 11.2 fL (9.4-12.3); Red Cell Distribution Width 19.1 % (11.0-16.0); White Blood Count 10.4 X10*3/uL (4.8-10.8)
[2020-11-13 07:18] LABS: Platelet Count 89 X10*3/uL (160-400)
[2020-11-13 07:47] LABS: Anion Gap 18 (12-20); Calcium 6.5 mg/dL (8.4-10.2); Carbon Dioxide 12 mmol/L (22-29); Chloride 115 mmol/L (96-108); Creatinine Clr Calc Pharmacy 7.6; Estimated Glomerular Filt Rate 11; Sodium 141 mmol/L (135-145)
[2020-11-13 08:06] LABS: Blood Urea Nitrogen 88 mg/dL (9-16); Glucose Random 58 mg/dL (60-115)
[2020-11-13] MEDS: Sodium Bicarbonate 8.4% 150 MEQ in Dextrose 5 % 850 ML 100 MEQ IV ×2 (08:28→21:01)
[2020-11-13] MEDS: 0.9 % Sodium Chloride Flush 3 ML SYRINGE IVFLUSH ×2 (08:28→16:29)
--- NOTE | 2020-11-13 09:30 | MHC.CM.PN ---
CM HAS ATTEMPTED TO CONTACT PTS SON, VERO ([phone]). THE PHONE RINGS SEVERAL TIMES THEN GOES TO A BUSY SIGNAL. THIS IS LIKELY DUE TO THE FACT THAT VERO IS CURRENTLY IN [place]. PER PTS MARINE DIVER, AMANUEL, VERO IS THE PTS HCP AND HE LIVES WITH THE PT. AMANUEL DID INDICATE VERO WOULD BE RETURNING HOME ON November. CM WILL CONTINUE TO ATTEMPT TO REACH HIM. OF NOTE, PTS MARINE DIVER REPORTS VERO IS PTS HCP HOWEVER IT IS NOT ON FILE. CM HAS CONTACTED PTS PCP OFFICE, THEY DID NOT HAVE A COPY. MESSAGE LEFT WITH PTS VISITING NURSE AGENCY, ROMULO GUZMAN, TO DETERMINE IF THEY HAVE A COPY.
[2020-11-13 09:36] LABS: Glucose, Whole Blood 147 mg/dL (60-115)
[2020-11-13] MEDS: Piperacillin Sodium/Tazobactam 2.25 GM in 0.9 % Sodium Chloride 50 ML IV ×3 (11:07→21:06)
--- NOTE | 2020-11-13 12:54 | HO.PM.IMPN ---
Subjective Subjective Date of Service: 11/13/20 Interval History: seen and examined appears uncomfortable ROS unreliable Physical Exam Vital Signs: Vital Signs: Last Vital Signs Temp 98.8 F 11/13/20 12:12 Pulse 91 11/13/20 12:12 Resp 20 11/13/20 12:12 BP 129/67 11/13/20 12:12 Pulse Ox 95 11/13/20 12:12 Body Mass Index 18.4 Const: Other: General - no acute distress, appears comfortable Cardiovascular - regular rate and rhythm, S1-S2 Lungs - normal respiratory effort, clear to auscultation bilaterally, no wheezing Abdomen - soft, nontender, no rebound or guarding Extremities - no edema bilaterally Neuro - non-verbal Skin - sacral wounds remains about the same; Objective Data Current Medications Generic Name Dose Route Start Last Admin Trade Name Freq PRN Reason Stop Dose Admin Acetaminophen 650 mg 11/11/20 21:32 Acetaminophen 325 Mg Tablet PO Q6H PRN Pain, Mild (Pain Scale 1-3) Aspirin 81 mg 11/12/20 09:00 11/12/20 09:47 Aspirin Enteric Coated 81 Mg Tablet.Dr PO Not Given DAILY VALENTIN Atorvastatin Calcium 40 mg 11/12/20 09:00 11/13/20 08:28 Atorvastatin Calcium 40 Mg Tablet PO Not Given DAILY VALENTIN Docusate Sodium 100 mg 11/11/20 21:32 Docusate Sodium 100 Mg Capsule PO DAILY PRN Constipation Sodium Bicarbonate 150 meq/ 1,000 mls @ 100 mls/hr 11/13/20 08:00 11/13/20 08:28 Dextrose IV 100 mls/hr .Q10H VALENTIN Administration Piperacillin Sod/Tazobactam 50 mls @ 100 mls/hr 11/13/20 10:00 11/13/20 12:14 Sod 2.25 gm/ Sodium Chloride IV Infused Q6H VALENTIN Infusion Metoprolol Succinate 150 mg 11/12/20 09:00 11/12/20 09:47 Metoprolol Succinate Er 100 Mg Tab.Er.24h PO Not Given DAILY VALENTIN Protocol Morphine Sulfate 2 mg 11/12/20 21:18 11/13/20 11:07 Morphine Sulfate 4 Mg/Ml Cartridge IVPUSH 2 mg Q6H PRN Administration Pain, Severe (Pain Scale 7-10) Ondansetron HCl 4 mg 11/11/20 21:32 Ondansetron Hcl 4 Mg/2 Ml Vial IVPUSH Q8H PRN Nausea and Vomiting Pharmacy Consult 1 each 11/11/20 21:32 Consult Rx Vancomycin Dosing MISCELLANE DAILY PRN Consult order Sodium Chloride 3 ml 11/12/20 00:00 11/13/20 08:28 0.9 % Sodium Chloride Flush 3 Ml Syringe IVFLUSH 3 ml QSHIFT VALENTIN Administration Labs CBC & Chem 7: 11/13/20 05:53 11/13/20 05:53 Microbiology Microbiology Results: Microbiology 11/11/20 16:58 Blood - Venous Blood Culture - Preliminary Gram negative janee 11/11/20 16:57 Blood - Venous Blood Culture - Preliminary Gram negative janee 11/11/20 Unknown Urine clean catch - Catheterized Urine Culture - Preliminary Gram negative janee Assessment and Plan (1) Sepsis: Status: Acute (2) Osteomyelitis of sacrum: Status: Acute (3) Encephalopathy: Status: Acute (4) Acute UTI: Status: Acute (5) Proctitis: Status: Acute (6) Elevated troponin: Status: Acute (7) Malnutrition: Status: Acute (8) Lactic acidosis: Status: Acute (9) GENE (acute kidney injury): Status: Acute (10) Transaminitis: Status: Acute (11) Cholelithiasis: Status: Acute Assessment and Plan: This is an unfortunate 80-year-old female who presents from the home by her BATTERY CHARGER CONVEYOR LINE with multiple issues as below 1. Severe Sepsis, POA 1a. Gram Negative Bacteremia multiple possible sources -- see below f/u cultures -- growing GNB in the blood 2. 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 Surg for consent) 3. GENE, metabolic acidosis keep sethi Bicarb drip I/O consult nephrology 4. UTI GNB in the urine zosyn cultures 5. Acute toxic/metabolic encephalopathy due to above conditions baseline unclear 6. Acute Anemia s/p 1 unit PRBC h/h improved monitor 7. Severe protein calorie Malnutrition dietary consult, supplements 8. R heel, unstable heel ucler dry gangrene follow recs per Wound Care Full Code DVT pptx, mehcanical due to anemia requiring transfusion.
--- NOTE | 2020-11-13 13:06 | P.EN_ITS ---
Event Note Date of Service: 11/13/20 Event Note: pt seen and examined earlier history and clinical data reviewed large sacral ulcer with necrotic tissue, at least stage 3 about 5-6 cm in diameter pt is bedbound had a long discussion with elana Rocha over the phone - explained need for excisional debridement with anesthesia explained risks including but not limited to bleeding, infections, poor healing, intensive wound care as well as the benefits and altenatives Aj had given consent engineering recruiter used with the above discussion
--- NOTE | 2020-11-13 13:20 | MHC.CLN ---
F/U PT REMAINS NPO IF DIET ADVANCES; RECOMMEND 1500DM DIET WITH ENSURE, MICHAEL AND PROSOURCE BID SUPPLEMENT WILL INCREASE KCALS AND PROMOTE WOUND HEALING IF NPO TO CONTINUE; CONSIDER PPN D10 4.25AA AT 40CC/HR TO START FOLLOWING
--- NOTE | 2020-11-13 14:09 | PM.OP ---
Brief Operative Note Date of Service: 11/13/20 Pre-op diagnosis: sacral decubitus ulcer, stage 4 Post-op diagnosis: same Procedure: debridement of sacral decubitus ulcer Implants: packed with saline soaked kerlix roll Surgeon: ARACELI NELSON MD Anesthesia: VANE Air Motor Repairer: Mary Kay Nguyen Estimated blood loss (mL): 20 Pathology: other (sacral decubitus ulcer tissue) Condition: stable Disposition: PACU
--- NOTE | 2020-11-13 14:16 | W.PM.OPN ---
Operative Note Operative Note Date of Service: 11/13/20 Narrative: PREOP DIAGNOSIS: SACROCOCCYGEAL DECUBITUS ULCER WITH GANGRENE POSTOP: SACROCOCCYGEAL DECUBITUS ULCER WIH GANGRENE, STAGE 4 PROCEDURE: EXCISIONAL DEBRIDEMENT OF SACROCOCCYGEAL DECUB ULCER SURGEON: ARACELI NELSON MD ASST: TISHA MILLA CHAN 77F with dementia and chronically bedbound, admitted last 2020 with sepsis. She was noted to have a large sacral decubitus ulcer with gangrene. I explained to her son Aj the need for debridement in the OR. I reviewed the risks, benefits and alternatives and he gave consent on her behalf. The patient was brought to the OR and placed in left lateral decub position under general anesthesia via ET tube. A surgical timeout was done. The sacral area was prepped and draped in the usual sterile fashion.The ulcer on the sacrococcygeal area was noted, with thick necrotic/gangrenous skin and subcutaneous tissue. I made an incision on the skin surrounding this ulcer with a blade 10. I carried down the incision through the full thickness of the skin and subcutaneous fat. I sharply excised all the nonviable tissue with Luz scissors as well as the scalp well. The ulcer extended down to the bone. The sacrum had a coating of necrotic tissue, and there seemed to be breakdown on the periosteum as well with exposed sharp edges of the bone. I excised all the grossly nonviable tissue sharply. I cauterized all oozing areas. The debrided area was circular, about 9 cm, in diameter, and extending all the way to bone., I applied a wet to dry packing with Kerlix with a thick dry pressure dressing on top. The procedure was then completed. She tolerated the procedure well. Initial and final count of sponges and instruments were correct. EBL was abut 25 cc. She was extubated without difficulty and transferred to the RR with stable VS.
--- NOTE | 2020-11-13 16:09 | PM.EVENT ---
Event Note Date of Service: 11/13/20 Event Note: seen postop awake pain control seems adequate dressings soaked - changed completely hold heparin subq pain mgt abx will do wound care dw nursing staff
[2020-11-13] MEDS: ceFAZolin Sodium/Dextrose,Iso 2 GM/50 ML PIGGYBACK IV (16:30)
--- NOTE | 2020-11-13 23:32 | PM.EVENT ---
Event Note Date of Service: 11/14/20 Event Note: Pt decompensated around 11 pm. she iis having agonal breathing, although sating in the 95-100%. bp dropped to 70s/30s. An urgent call was made to her SOn Aj as well as Dr. Lewis as pt is s/p I&D of the sacral ulcer and nurse reported sig saturation of dressing. Her family when i spoke to them with help of machine wood sander, wanted pt to be full code, in the meantime, IV fluids bolus were hung. work up including stat VBG, CBC, cxr, lactic acid were done and 1 unit of pRBC was ordered. A call was made to ICU, and after discussion, ICU PA called her son Aj who live in [place] and her code status was changed to DNR/DNI. Pt's H&H resulted with Hgb of 5.8 from 9.2 earlier in the day. 2 units total of prbc were ordered. Pt also received to L of LR. LA also increased to 16. she is now on maintenance fluid, with hemodynamics stabilizing at this time. Dr. Lewis recommended monitoring wound. Family informed of all these changes.
--- NOTE | 2020-11-13 23:50 | W.MHC.ACPN ---
Advanced Care Planning Note Advanced Care Planning Note Discussed with: family member(s) (Son: Aj Murphy) Time spent (in minutes): 15 Narrative: I had a lengthy discussion with the patient's next of kin, patient's son Mr. Aj Murphy. I had explained the patients labs and current clinical situation in detail as well as the patient's poor quality of life prior to the admission and the current malnourished state; she has poor prognosis is she was to decompensate and would probably not tolerate CRP also the patient's son stated she does not want heroic or invasive measures. He agrees with DNR/DNI code status. Kizzy HENLEY was a witness of this conversation. Case decision was discussed with Dr Cordova. No ICU transfer at this point. [id number] Problems Discussed (1) Sepsis: (2) Osteomyelitis of sacrum: (3) Encephalopathy: (4) Acute UTI: (5) Proctitis: (6) Elevated troponin: (7) Malnutrition: (8) Lactic acidosis: (9) GENE (acute kidney injury): (10) Transaminitis: (11) Cholelithiasis:
[2020-11-14] VITALS (24 sets, daily range): BP systolic 91–152; BP diastolic 44–74; PULSE 84–98; RESP 16–24; TEMP 35.7–36.6; O2SAT 93–100; BMI 23.8
[2020-11-14] LABS: Mean Corpuscular HGB Conc 31.5 g/dl (31.0-35.0); Mean Corpuscular Hemoglobin 30.1 pg (27.0-33.0); Mean Corpuscular Volume 95.3 fL (80-98); NRBC Pct Auto 0.8 /100WBC (0.0-0.2); PLT CLUMP 1; Red Blood Count 1.93 X10*6/uL (4.20-5.50); Red Cell Distribution Width 19.7 % (11.0-16.0)
--- NOTE | 2020-11-14 | PM.EVENT ---
Event Note Date of Service: 11/14/20 Event Note: called by nurse - pt appeared to have change in respiratory status the past hour and a half breathing looks agonal as per nurse - she had reinforced the dressings about 1 hour ago as this had clots BP 95/44, [place] 95 dressings currently not soaking through, dry H/H ordered medical service had talked to family from [place] - DNR/DNI in effect - multiple chronic medical issues, poor baseline level of function pt had low Hg 7.5 yesterday, given 1 unit, went up to 9.4 transfusion ordered while H/H pending
[2020-11-14 00:01] LABS: Hematocrit 18.4 % (37-47)
[2020-11-14 00:04] LABS: Hemoglobin 5.8 g/dl (12.0-16.0)
--- NOTE | 2020-11-14 00:13 | PM.EVENT ---
Event Note Date of Service: 11/14/20 Event Note: Hg came back as 5.8 BP remains 91/46 , pulse rate in the 90's I changed her dressings and examined wound - no active bleeding seen, although nurse stated clots were noted around dressings earlier tonight; was not saturated before that as per nurse I applied Gelfoam into the derbidement wound in case there is steady oozing transfusion ordered follow Hg as per son Aj - DNR/DNI will do wound care
[2020-11-14] MEDS: Dextrose 5 % and Lactated Ring 1,000 ML 999 ML IVCONT (00:22)
[2020-11-14] MEDS: Lactated Ringers 500 ML 1000 ML IVCONT ×2 (00:22→00:23)
[2020-11-14] MEDS: 0.9 % Sodium Chloride Flush 3 ML SYRINGE IVFLUSH ×4 (00:23→20:52)
[2020-11-14 01:02] LABS: Atypical Lymphs Percent Manual 2 % (0-6); Lymphocytes Percent Manual 42 % (20-40); Monocytes Percent Manual 4 % (2-11); Neutrophils Percent Manual 48 % (45-73); Plasma Cells % 4 %
[2020-11-14 01:06] LABS: Acanthocytes 1+; Microcytosis 1+; Ovalocytes 1+; RBC Morphology NOTED; Schistocytes 1+; Spherocytes 1+
[2020-11-14 01:07] LABS: Dohle Bodies PRESENT; Hypochromasia 1+; Platelet Estimate DECREASED (NORMAL); Toxic Vacuolation PRESENT
[2020-11-14 01:08] LABS: Atypical Lymph Absolute Manual 0.4 x10*3/uL; Large Platelet PRESENT; Lymphocytes Absolute Manual 7.6 X10*3/uL (0.6-4.8); Monocytes Absolute Manual 0.7 X10*3/uL (0.0-1.2); Plasma Cells Absolute Manual 0.7 X10*3/uL; Platelet Count 67 X10*3/uL (160-400); Platelet Morphology Comment NOTED
[2020-11-14 01:33] LABS: Base Excess VBG -20.4 mmol/L; HCO3 VBG 7 mmol/L; PCO2 VBG 23 mmHg; PO2 VBG 75 mmHg
[2020-11-14 01:35] LABS: pH VBG 7.09 (7.32-7.43)
--- NOTE | 2020-11-14 01:35 | PC.NURSE ---
Addendum entered by Alisa Toney RN 11/14/20 02:02: EKG done as well. Pt remained sinus rhythm 90's, ST 100-105. poor profusion noted throughout the night, even when she came back from PACU, modeling noted to hipslower legs, fingertips and toes purple, cap refill >2 seconds. Skin cool to touch, Rectal temp 97.9. Nursing supervisor net making aware and at bedside as well. Original Note: 2245: at beside d/t patient status deteriorating. This RN went in to turn and clean patient at 10:15 and noted coccyx dressing to be completely saturated through, onto and through terrell pads underneath with large clots on pads. Pt agonal breathing, nonresponsive. Pt previously moaning, otherwise unassessable (hx dementia, ukrainian speaking despite interpreters, pt unable to comprehend) intermittently moans out, but would not respond to name or commands. Stat H&H ordered, lab at bedside. See vitals for documentation, pt initially hypotensive, remained sinus rhythm in the 90's, agonal breathing RR 24-26. Iv placed, #20 right AC, LR 2L ordered and hung. Dr Lewis notified, and came into bedside, dressing changed by MD. BP's improving after IVF. h&h critical 5.8/18.4- 2units RBC's ordered, 1un FFP, 1st unit RBC hung. vital signs improving, per MD's spoke to elana Rocha, code status changed to DNR/DNI. report given to oncomming RN.
[2020-11-14 02:12] LABS: Alanine Aminotransferase 42 U/L (0-31); Albumin Level 1.1 g/dL (3.5-5.0); Alkaline Phosphatase 139 U/L (39-117); Anion Gap 31 (12-20); Aspartate Amino Transferase 86 U/L (5-31); Bilirubin Total 1.1 mg/dL (0.0-1.0); Blood Urea Nitrogen 87 mg/dL (9-16); Calcium 6.1 mg/dL (8.4-10.2); Carbon Dioxide 8 mmol/L (22-29); Chloride 108 mmol/L (96-108); Creatinine Clr Calc Pharmacy 6.9; Estimated Glomerular Filt Rate 10; Glucose Random 232 mg/dL (60-115); Lactic Acid 16.7 mmol/L (0.5-2.0); Potassium 4.8 mmol/L (3.3-5.1); Sodium 142 mmol/L (135-145); Total Protein 6.1 g/dL (6.5-8.0)
[2020-11-14] MEDS: Sodium Bicarbonate 8.4% 150 MEQ in Dextrose 5 % 850 ML 100 MEQ IV (02:24)
[2020-11-14 02:59] LABS: Creatinine Urine 40.26 mg/dL; Total Protein Urine Random 944 mg/dL (<12)
[2020-11-14 03:29] LABS: Reflex Lactate? Lactic Acid Added
[2020-11-14 04:46] LABS: ~Lactic Acid-LAB USE ONLY 15.6 mmol/L (0.5-2.0)
[2020-11-14] MEDS: Piperacillin Sodium/Tazobactam 2.25 GM in 0.9 % Sodium Chloride 50 ML IV ×4 (05:19→20:51)
[2020-11-14 06:06] LABS: Reflex Lactate? 2 Y
[2020-11-14 07:09] LABS: Hemoglobin 8.6 g/dl (12.0-16.0)
[2020-11-14 07:11] LABS: Hematocrit 25.9 % (37-47); Mean Corpuscular HGB Conc 33.2 g/dl (31.0-35.0); Mean Corpuscular Hemoglobin 29.4 pg (27.0-33.0); Mean Corpuscular Volume 88.4 fL (80-98); NRBC Pct Auto 0.7 /100WBC (0.0-0.2); Red Blood Count 2.93 X10*6/uL (4.20-5.50); White Blood Count 11.6 X10*3/uL (4.8-10.8)
--- NOTE | 2020-11-14 07:13 | PC.NURSE ---
P: Patient had 13 beat Vtach I: Assessed patient, obtained VS, notified E: Pt noted to have vtach on tele, pt unresponsive and unable to respond. VSS, made aware, new order for serum Mag level to be drawn.
[2020-11-14 07:30] LABS: Glucose, Whole Blood 207 mg/dL (60-115)
[2020-11-14 07:56] LABS: Anion Gap 27 (12-20); Blood Urea Nitrogen 82 mg/dL (9-16); Calcium 6.2 mg/dL (8.4-10.2); Carbon Dioxide 13 mmol/L (22-29); Chloride 106 mmol/L (96-108); Creatinine Clr Calc Pharmacy 7.4; Estimated Glomerular Filt Rate 11; Glucose Random 222 mg/dL (60-115); Magnesium 1.7 mg/dL (1.6-2.6); Potassium 4.2 mmol/L (3.3-5.1); Sodium 142 mmol/L (135-145)
[2020-11-14 08:05] LABS: Platelet Count 51 X10*3/uL (160-400)
[2020-11-14] MEDS: Atorvastatin Calcium 40 MG TABLET PO (08:41)
[2020-11-14] MEDS: Morphine Sulfate 4 MG/ML CARTRIDGE 2 MG IVPUSH (08:41)
--- NOTE | 2020-11-14 09:13 | HO.POSTANES ---
Post Anesthesia Evaluation Post Anesthesia Evaluation Vital Signs: Vital Signs Temp Pulse Resp BP Pulse Ox 11/14/20 08:00 97.1 F 89 18 116/61 100 11/14/20 04:52 96.8 F 84 18 129/65 11/14/20 04:00 97.7 F 86 16 118/60 99 11/14/20 03:40 97.0 F 90 18 118/60 11/14/20 03:24 97.2 F 88 18 98/55 L 11/14/20 03:04 97.4 F 91 18 97/58 L 11/14/20 03:02 97.4 F 89 18 97/58 L 11/14/20 02:43 97.6 F 88 18 98/54 L 11/14/20 02:31 96.7 F L 92 18 96/51 L 11/14/20 01:29 97.9 F 93 18 104/54 L 11/14/20 00:28 94 20 100/50 L 100 11/14/20 00:20 97.9 F 94 20 100/50 L 11/14/20 00:16 97.9 F 94 16 91/46 L 11/14/20 00:02 95 24 H 95/44 L 98 11/13/20 23:58 98 22 H 90/43 L 100 11/13/20 23:45 97 24 H 88/52 L 98 11/13/20 22:40 98 24 H 82/50 L 11/13/20 22:35 97.9 F 97 26 H 72/48 L 97 Anesthesia: General Endotracheal-GETA Mental Status: Awake Pain Control: Satisfactory Nausea/Vomiting: None Hydration: Adequate Anesthesia-Related Issues: No Anes. Related Issues
--- NOTE | 2020-11-14 10:57 | PM.PNGS ---
Subjective Subjective Date of Service: 11/14/20 Interval history: mental status better than last night dressings did nto require change overnight transfused 3 units respiratory status improved compared to last night Physical Exam Vital Signs: Vital Signs: Last Vital Signs Temp 97.1 F 11/14/20 08:00 Pulse 89 11/14/20 08:00 Resp 18 11/14/20 08:00 BP 116/61 11/14/20 08:00 Pulse Ox 100 11/14/20 08:00 Body Mass Index 18.4 Chemistry 11/11/20 11/12/20 11/12/20 16:57 04:00 14:44 Sodium 135 139 140 Potassium 4.0 3.7 3.6 Carbon Dioxide 10 L* D 14 L 16 L BUN 87 H* D 84 H* 85 H* Creatinine 3.94 H 3.65 H 3.76 H Calcium 7.6 L 6.8 L D 6.8 L 11/13/20 11/13/20 11/14/20 01:18 05:53 05:43 Sodium 142 141 142 Potassium 4.8 D 4.0 4.2 Carbon Dioxide 8 L* D 12 L 13 L BUN 87 H* 88 H* 82 H* Creatinine 4.37 H* 3.98 H 4.09 H* Calcium 6.1 L D 6.5 L D 6.2 L Hematology 11/11/20 11/12/20 11/13/20 16:57 04:00 05:53 WBC 7.9 13.0 H 10.4 Hgb 9.2 L 7.5 L 9.2 L D Plt Count 140 L 114 L 89 L 11/13/20 11/14/20 23:21 05:43 WBC 18.0 H 11.6 H Hgb 5.8 L* D 8.6 L D Plt Count 67 L 51 L Urinalysis 11/11/20 17:52 Urine Color BROWN Urine Appearance CLOUDY Urine pH 7.5 Ur Specific Gravit y 1.020 Urine Protein 2+ H Urine Glucose (UA) NEG Urine Ketones 5 Urine Blood 2+ H Urine Nitrite POS H Ur Leukocyte Diya ase 2+ H Urine RBC 50-75 H Urine WBC TNTC H Ur Squamous Epith Cells NONE Urine Studies 11/14/20 00:15 Urine Creatinine 40.26 Const: Other: mental status as baseline - incoherent, although opens eyes spontaneously, no really communicative Resp: Effort & Inspection: normal respiratory effort Cardio: Rhythm: regular rhythm GI: Palpation (GI): Soft to palpation, not firm and no guarding Back/Spine/Pelvis: Other: dressings changed - open wound examined: no brisk bleeding, oozing around skin edges; I cahnged her dressings- clots noted, heavy staining on dressings; Progress Note: A&P Assessment and plan (1) Sacral decubitus ulcer, stage IV: Status: Acute Assessment and Plan: transfused overnight - appropriate incerase in Hg I had examined and changed her dressings at midnight last night - no active bleeding as per nurse - dressings did not soak through until this morning with clots current exam - no brisk bleeding, some oozing on raw areas around wound edges i changed her dressings, replaced her Gelfoam packings no definite bleeding vessel, more of periodic oozing like coagulopathic from sepsis, low platelet, borderline INR has multiple infections bone involvement of ulcer with osteomyelitis wound care transfuse prn as per son Aj in [place] - DNR, DNI, but he wants to continue medical mgt until he is able to come to the [place] to see her prognosis grim dw Hospitalist service Fall Risk Details Current Medications: Current Medications Generic Name Dose Route Start Last Admin Trade Name Karol PRN Reason Stop Dose Admin Acetaminophen 650 mg 11/11/20 21:32 Acetaminophen 325 Mg Tablet PO Q6H PRN Pain, Mild (Pain Scale 1-3) Aspirin 81 mg 11/12/20 09:00 11/12/20 09:47 Aspirin Enteric Coated 81 Mg Tablet. PO Not Given DAILY VALENTIN Atorvastatin Calcium 40 mg 11/12/20 09:00 11/14/20 08:41 Atorvastatin Calcium 40 Mg Tablet PO 40 mg DAILY VALENTIN Administration Sodium Bicarbonate 150 meq/ 1,000 mls @ 100 mls/hr 11/13/20 08:00 11/14/20 05:19 Dextrose IV Not Given .Q10H VALENTIN Piperacillin Sod/Tazobactam 50 mls @ 100 mls/hr 11/13/20 10:00 11/14/20 10:18 Sod 2.25 gm/ Sodium Chloride IV 100 mls/hr Q6H VALENTIN Administration Daptomycin 250 mg/ Sodium 55 mls @ 100 mls/hr 11/14/20 11:00 Chloride IV Q48H VALENTIN Metoprolol Succinate 150 mg 11/12/20 09:00 11/12/20 09:47 Metoprolol Succinate Er 100 Mg Tab.Er.24h PO Not Given DAILY [facility] Protocol Morphine Sulfate 2 mg 11/13/20 16:07 11/14/20 08:41 Morphine Sulfate 4 Mg/Ml Cartridge IVPUSH 2 mg Q4H PRN Administration Pain, Severe (Pain Scale 7-10) Ondansetron HCl 4 mg 11/11/20 21:32 Ondansetron Hcl 4 Mg/2 Ml Vial IVPUSH Q8H PRN Nausea and Vomiting Pharmacy Consult 1 each 11/11/20 21:32 Consult Rx Vancomycin Dosing MISCELLANE DAILY PRN Consult order Sodium Chloride 3 ml 11/12/20 00:00 11/14/20 07:56 0.9 % Sodium Chloride Flush 3 Ml Syringe IVFLUSH 3 ml QSHIFT VALENTIN Administration Time Spent With Patient Time: Total time spent is greater than 50% in coordination of care (as documented) at patient's floor/unit and/or counseling patient: Time with patient: Greater than 35 minutes Procedures Date of Service Date of Service: 11/14/20
--- NOTE | 2020-11-14 11:24 | HO.PM.IMPN ---
Subjective Subjective Date of Service: 11/14/20 Interval History: seen and examined overnight events reviewed this AM alert ROS unreliable Physical Exam Vital Signs: Vital Signs: Last Vital Signs Temp 97.1 F 11/14/20 08:00 Pulse 89 11/14/20 08:00 Resp 18 11/14/20 08:00 BP 116/61 11/14/20 08:00 Pulse Ox 100 11/14/20 08:00 Body Mass Index 18.4 Const: Other: General - awake, doesnt appear in too much distress Cardiovascular - regular rate and rhythm, S1-S2 Lungs - dim, no distress Abdomen - soft, no guarding Neuro - non verbal Skin - sacral dressing in place -- changed by gen surg; RLE - unstageable ulcer at the heel, foam dressing in place; LLE later foot small unstable ulcer with foam dressing in place Objective Data Current Medications Generic Name Dose Route Start Last Admin Trade Name Freq PRN Reason Stop Dose Admin Acetaminophen 650 mg 11/11/20 21:32 Acetaminophen 325 Mg Tablet PO Q6H PRN Pain, Mild (Pain Scale 1-3) Aspirin 81 mg 11/12/20 09:00 11/12/20 09:47 Aspirin Enteric Coated 81 Mg Tablet.Dr PO Not Given DAILY VALENTIN Atorvastatin Calcium 40 mg 11/12/20 09:00 11/14/20 08:41 Atorvastatin Calcium 40 Mg Tablet PO 40 mg DAILY VALENTIN Administration Sodium Bicarbonate 150 meq/ 1,000 mls @ 100 mls/hr 11/13/20 08:00 11/14/20 05:19 Dextrose IV Not Given .Q10H VALENTIN Piperacillin Sod/Tazobactam 50 mls @ 100 mls/hr 11/13/20 10:00 11/14/20 11:10 Sod 2.25 gm/ Sodium Chloride IV Infused Q6H VALENTIN Infusion Daptomycin 250 mg/ Sodium 55 mls @ 100 mls/hr 11/14/20 11:00 Chloride IV Q48H VALENTIN Metoprolol Succinate 150 mg 11/12/20 09:00 11/12/20 09:47 Metoprolol Succinate Er 100 Mg Tab.Er.24h PO Not Given DAILY [facility] Protocol Morphine Sulfate 2 mg 11/13/20 16:07 11/14/20 08:41 Morphine Sulfate 4 Mg/Ml Cartridge IVPUSH 2 mg Q4H PRN Administration Pain, Severe (Pain Scale 7-10) Ondansetron HCl 4 mg 11/11/20 21:32 Ondansetron Hcl 4 Mg/2 Ml Vial IVPUSH Q8H PRN Nausea and Vomiting Pharmacy Consult 1 each 11/11/20 21:32 Consult Rx Vancomycin Dosing MISCELLANE DAILY PRN Consult order Sodium Chloride 3 ml 11/12/20 00:00 11/14/20 07:56 0.9 % Sodium Chloride Flush 3 Ml Syringe IVFLUSH 3 ml QSHIFT VALENTIN Administration Labs CBC & Chem 7: 11/14/20 05:43 11/14/20 05:43 Microbiology Microbiology Results: Microbiology 11/11/20 Unknown Urine clean catch - Catheterized Urine Culture - Final Escherichia coli 11/11/20 16:58 Blood - Venous Blood Culture - Preliminary Proteus mirabilis Gram positive cocci 11/11/20 16:57 Blood - Venous Blood Culture - Preliminary Proteus mirabilis Gram positive cocci Assessment and Plan (1) Sepsis: Status: Acute (2) Osteomyelitis of sacrum: Status: Acute (3) Encephalopathy: Status: Acute (4) Acute UTI: Status: Acute (5) Proctitis: Status: Acute (6) Elevated troponin: Status: Acute (7) Malnutrition: Status: Acute (8) Lactic acidosis: Status: Acute (9) GENE (acute kidney injury): Status: Acute (10) Transaminitis: Status: Acute (11) Cholelithiasis: Status: Acute Assessment and Plan: This is an unfortunate 80-year-old female who presents from the home by her PRODUCTION OR PLANT ENGINEER with multiple issues as below 1. Severe Sepsis, POA 1a. Proteus and GPC bacteremia likely from infected wound 2. 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 Acute Blood loss anemia, thrombocytoepnia Transfused 2 units prbcs + FFP over night will give an additional 1 unit PRBC + 1 unit platelet 4. GENE, metabolic acidosis oliguric - 500 cc output since admission hold bicarb drip (will be getting PRBCs) -- do not want to fluid overload her 5. E. Coli UTI zosyn 6. Acute toxic/metabolic encephalopathy due to above conditions baseline unclear 7. Severe protein calorie Malnutrition dietary consult, supplements 8. R heel, unstable heel ucler dry gangrene follow recs per Wound Care DNR/DNI DVT pptx, mehcanical due to anemia requiring transfusion. Prognosis Grim -- son Aj requests to continue medical mgmt (see separate event note) while he flies to the [place] from the [place].
--- NOTE | 2020-11-14 11:26 | P.EN_ITS ---
Event Note Date of Service: 11/14/20 Event Note: Status Note D/W the the son Aj on the phone @ his work number [phone] with maintenance groundskeeper Reshma and Dr. Lewis as well. I informed him that his mothers condition is critical and although she has improved from overnight, her condition and prognosis is grim. He was able to verbalize his understanding of his mother condition (infected wounds, bacteremia, bleeding). He reconfrimed DNR/DNI status which was discussed with him overnight by the ICU team. His request was that he continue the current medical treatment, but no CPR/mechanical ventilation +intubation/ICU transfer for vasopressors, should her condition decline. He tells me that he is going to try and fly to the [place] today/tomorrow and that point may change her status further to comfort measures only.
[2020-11-14 11:37] LABS: Glucose, Whole Blood 163 mg/dL (60-115)
--- NOTE | 2020-11-14 15:42 | PM.EVENT ---
Event Note Date of Service: 11/14/20 Event Note: pt reeamined some heavy staining on dressings large open wound reexamined - some oozing from raw areas, no brisk bleeding, no pulsatile bleeding area I applied Avitene, packed the open wound with gauze and pressure dressings dressings reported to loosen when pt has BMs due to contamination continue wound care very minimal urine output since last night, creatinine continues to rise appears to be coagulopathic from multiple factors - sepsis, organ failure, thrombocytopenia
[2020-11-14 16:29] LABS: Glucose, Whole Blood 71 mg/dL (60-115)
[2020-11-14] MEDS: Furosemide 20 MG/2 ML VIAL IVPUSH (16:49)
[2020-11-14] MEDS: HYDROmorphone HCl 0.5 MG/0.5 ML SYRINGE 0.25 MG IVPUSH (17:47)
[2020-11-14 20:16] LABS: Glucose, Whole Blood 51 mg/dL (60-115)
[2020-11-14] MEDS: Dextrose 5 % and Lactated Ring 1,000 ML 50 ML IVCONT (20:52)
[2020-11-14 21:43] LABS: Glucose, Whole Blood 164 mg/dL (60-115)
[2020-11-15 03:13] VITALS: BP 134/80; PULSE 100; RESP 18; TEMP 36.6; O2SAT 95
[2020-11-15] MEDS: Piperacillin Sodium/Tazobactam 2.25 GM in 0.9 % Sodium Chloride 50 ML IV (05:16)
[2020-11-15] MEDS: HYDROmorphone HCl 0.5 MG/0.5 ML SYRINGE 0.25 MG IVPUSH (05:16)
[2020-11-15 05:54] LABS: PLT CLUMP 1
[2020-11-15 05:56] LABS: Mean Corpuscular HGB Conc 33.8 g/dl (31.0-35.0); Mean Corpuscular Hemoglobin 28.9 pg (27.0-33.0); Mean Corpuscular Volume 85.5 fL (80-98); Mean Platelet Volume 10.3 fL (9.4-12.3); NRBC Pct Auto 0.5 /100WBC (0.0-0.2); Red Blood Count 2.42 X10*6/uL (4.20-5.50); Red Cell Distribution Width 18.8 % (11.0-16.0)
[2020-11-15 05:59] LABS: Hematocrit 20.7 % (37-47); Platelet Count 79 X10*3/uL (160-400)
[2020-11-15 06:33] LABS: Anion Gap 21 (12-20); Blood Urea Nitrogen 82 mg/dL (9-16); Calcium 5.6 mg/dL (8.4-10.2); Carbon Dioxide 22 mmol/L (22-29); Chloride 105 mmol/L (96-108); Creatinine Clr Calc Pharmacy 8.1; Estimated Glomerular Filt Rate 10; Glucose Random 113 mg/dL (60-115); Potassium 4.3 mmol/L (3.3-5.1); Sodium 144 mmol/L (135-145)
[2020-11-15 07:18] LABS: Glucose, Whole Blood 97 mg/dL (60-115)
[2020-11-15 07:22] VITALS: BP 74/54; PULSE 95; RESP 18; TEMP 36.3; O2SAT 97
--- NOTE | 2020-11-15 07:37 | PM.PNGS ---
Subjective Subjective Date of Service: 11/15/20 Interval history: no events overnight came to see pt early this morning as nurse reported dressings had soaked - dressings apparently relatively dry through the night, but pt requiring moving and cleaning for BMs, and dressings mental status as baseline - incoherent was transfused platelets yesterday has had practically no UO Physical Exam Vital Signs: Vital Signs: Last Vital Signs Temp 97.3 F 11/15/20 07:22 Pulse 95 11/15/20 07:22 Resp 18 11/15/20 07:22 BP 74/54 L 11/15/20 07:22 Pulse Ox 97 11/15/20 07:22 Body Mass Index 23.8 Const: Other: moaning unintelligibly, no obvious respiratory distress GI: Palpation (GI): Soft to palpation Back/Spine/Pelvis: Other: large open wound on sacrum, clots noted within open wound, no active bleed on exam but dressings were soaked Progress Note: A&P Assessment and plan (1) Sacral decubitus ulcer, stage IV: Status: Acute Assessment and Plan: S/P debridement has diffuse oozing from wound with soaking of dressings dressings last changed yesterday afternoon around 3, stayed relatively dry until early this morning as per nurse I changed her dressings again - places Surgicel on wound bed, no active bleeding noted on exam likely coagulopathic from sepsis, organ failure, also thrombocytopenic luz kidney failure - pt not a candidate for dialysis support DNR/DNI; son Aj stated he wants to see her and planned to fly in from [place] Hg trended down - transfusion ordered Fall Risk Details Current Medications: Current Medications Generic Name Dose Route Start Last Admin Trade Name Freq PRN Reason Stop Dose Admin Acetaminophen 650 mg 11/11/20 21:32 Acetaminophen 325 Mg Tablet PO Q6H PRN Pain, Mild (Pain Scale 1-3) Hydromorphone HCl 0.25 mg 11/14/20 16:31 11/15/20 05:16 Hydromorphone Hcl 0.5 Mg/0.5 Ml Syringe IVPUSH 0.25 mg Q4H PRN Administration Pain, Severe (Pain Scale 7-10) Piperacillin Sod/Tazobactam 50 mls @ 100 mls/hr 11/13/20 10:00 11/15/20 05:59 Sod 2.25 gm/ Sodium Chloride IV Infused Q6H [facility] Infusion Daptomycin 250 mg/ Sodium 55 mls @ 100 mls/hr 11/14/20 11:00 11/14/20 12:36 Chloride IV Infused Q48H [facility] Infusion Dextrose/Lactated Ringer's 1,000 mls @ 50 mls/hr 11/14/20 20:30 11/14/20 20:52 D5lr IVCONT 50 mls/hr .Q20H [facility] Administration Ondansetron HCl 4 mg 11/11/20 21:32 Ondansetron Hcl 4 Mg/2 Ml Vial IVPUSH Q8H PRN Nausea and Vomiting Pharmacy Consult 1 each 11/11/20 21:32 Consult Rx Vancomycin Dosing MISCELLANE DAILY PRN Consult order Sodium Chloride 3 ml 11/12/20 00:00 11/14/20 20:52 0.9 % Sodium Chloride Flush 3 Ml Syringe IVFLUSH 3 ml QSHIFT [facility] Administration Time Spent With Patient Time: Total time spent is greater than 50% in coordination of care (as documented) at patient's floor/unit and/or counseling patient: Time with patient: 25 - 35 minutes Procedures Date of Service Date of Service: 11/15/20
[2020-11-15 08:30] VITALS: BP 74/48; PULSE 95; RESP 20; TEMP 36.3
[2020-11-15 08:48] VITALS: BP 97/49; PULSE 94; RESP 20; TEMP 36.6
[2020-11-15 09:50] VITALS: BP 106/55; PULSE 91; RESP 20; TEMP 36.4
[2020-11-15] MEDS: 0.9 % Sodium Chloride Flush 3 ML SYRINGE IVFLUSH ×2 (09:52→15:55)
[2020-11-15] MEDS: HYDROmorphone HCl 0.5 MG/0.5 ML SYRINGE IVPUSH ×4 (09:57→22:24)
--- NOTE | 2020-11-15 10:30 | PM.EVENT ---
Event Note Date of Service: 11/15/20 Event Note: Change in Status note D/w the patients Son (Aj @ [phone]) with sign language interpreter present as well as patients RN Fifi Durbin. Gave him the latest updates on her mothers condition. Told him that despite multiple blood products, antibiotics, fluids her mother continues to deteriorate. I told him that it was my medical opinion that we are prolonging her inevitable . I told him that I would continue treating with the current medical management should he opt to. I offered treatment with comfort measures only. He was able to verbalize back to me what this meant (no further treatment such as blood products / antibiotics / fluids). He did ultimately choose SCCM ADMINISTRATOR.
--- NOTE | 2020-11-15 10:41 | PM.EVENT ---
Event Note Date of Service: 11/15/20 Event Note: Daily Prgoress Note S Moaning in Pain, minimally alert O vitals - hypotensive this AM with bp 74/48 Gen - moaning in pain CVS - S1S2 Lungs - no distress Abd - +tenderness Neuro - minimally alert, moaning in pain A/P 80 yo F with multiorgan failure secondary to sepsis from infected decub. Family has elected FIBROUS PLASTERER status. FIBROUS PLASTERER orders placed.
--- NOTE | 2020-11-15 12:59 | PC.NURSE ---
phone call made to patient's son Aj regarding patient's status. Dr. Hernandez spoke to family with aid of twister tender paper explaining patient declining. 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 shipping and receiving and sequentials, all other meds besides those given for comfort d/c'd.
--- NOTE | 2020-11-15 17:23 | PM.EVENT ---
Event Note Date of Service: 11/15/20 Event Note: informed by medical service that pt's son has placed her in OUTSOLE CUTTER MACHINE pt has had very minimal UO since admission wound check done - some heavy staining of dressings; I changed her dressings wound base examined - no active bleeding seen; I applied fresh Gelfoam into the raw surface of the wound; thick dressings applied pt now only on pain meds
[2020-11-16 00:33] VITALS: RESP 10
[2020-11-16] MEDS: 0.9 % Sodium Chloride Flush 3 ML SYRINGE IVFLUSH ×3 (00:33→15:55)
[2020-11-16 02:12] VITALS: RESP 10
[2020-11-16] MEDS: HYDROmorphone HCl 0.5 MG/0.5 ML SYRINGE IVPUSH ×2 (06:03→11:14)
[2020-11-16 08:40] LABS: Band Neutrophils Percent 0 % (3-5); Neutrophils Absolute Manual 8.6 X10*3/uL (2.2-7.9)
--- NOTE | 2020-11-16 08:54 | MHC.CM.PN ---
CM RECEIVED A MESSAGE FROM PTS MD ON 11/15/20. PT WILL BE CHANGED TO SUPERVISOR TICKET SALES STATUS. PTS SON, CANDE WILL TRY TO MAKE ARRANGEMENTS TO VISIT PT. HE IS CURRENTLY IN [place] AND HOPES TO BE ABLE TO GET A FLIGHT WITHIN 1-2 DAYS.
--- NOTE | 2020-11-16 10:05 | P.PNIM_ITS ---
Subjective Subjective Date of Service: 11/16/20 Interval History: Appears comfortable, not communicating Cardiovascular Cardiovascular: Reports no additional cardiovascular complaints Respiratory Respiratory: Reports no additional respiratory complaints Physical Exam Vital Signs: Vital Signs: Last Vital Signs Temp 97.6 F 11/15/20 09:50 Pulse 91 11/15/20 09:50 Resp 10 L 11/16/20 02:12 BP 106/55 L 11/15/20 09:50 Pulse Ox 97 11/15/20 07:22 Body Mass Index 23.8 General: no acute distress, ill appearing Resp: CTA bilateral CVS: S1,S2,RRR GI: soft, non tender, non distended stage IV sacral ulcer Objective Data Current Medications Generic Name Dose Route Start Last Admin Trade Name Freq PRN Reason Stop Dose Admin Hydromorphone HCl 0.5 mg 11/15/20 14:21 Hydromorphone Hcl 0.5 Mg/0.5 Ml Syringe IVPUSH Q1H PRN Pain, Severe (Pain Scale 7-10) Hydromorphone HCl 0.5 mg 11/15/20 17:00 11/16/20 09:09 Hydromorphone Hcl 0.5 Mg/0.5 Ml Syringe IVPUSH Not Given Q3H [facility] Ondansetron HCl 4 mg 11/11/20 21:32 Ondansetron Hcl 4 Mg/2 Ml Vial IVPUSH Q8H PRN Nausea and Vomiting Pharmacy Consult 1 each 11/11/20 21:32 Consult Rx Vancomycin Dosing MISCELLANE DAILY PRN Consult order Sodium Chloride 3 ml 11/12/20 00:00 11/16/20 09:09 0.9 % Sodium Chloride Flush 3 Ml Syringe IVFLUSH 3 ml QSHIFT [facility] Administration Labs CBC & Chem 7: 11/15/20 05:02 11/15/20 05:02 Microbiology Microbiology Results: Microbiology 11/14/20 01:18 Blood - Venous Blood Culture - Preliminary No growth after 48 hours. 11/14/20 01:18 Blood - Venous Blood Culture - Preliminary No growth after 48 hours. 11/11/20 16:58 Blood - Venous Blood Culture - Preliminary Proteus mirabilis Gram positive cocci 11/11/20 16:57 Blood - Venous Blood Culture - Preliminary Proteus mirabilis Gram positive cocci 11/11/20 Unknown Urine clean catch - Catheterized Urine Culture - Final Escherichia coli Assessment and Plan (1) Sepsis: Status: Acute (2) Osteomyelitis of sacrum: Status: Acute (3) Encephalopathy: Status: Acute (4) Acute UTI: Status: Acute (5) Proctitis: Status: Acute (6) Elevated troponin: Status: Acute (7) Malnutrition: Status: Acute (8) Lactic acidosis: Status: Acute (9) GENE (acute kidney injury): Status: Acute (10) Transaminitis: Status: Acute (11) Cholelithiasis: Status: Acute Assessment and Plan: This is an unfortunate 80-year-old female who presents from the home by her PROCESS IMPROVEMENT MANAGER with multiple issues as below Severe Sepsis, POA Proteus and GPC bacteremia likely from infected stage IV sacral decubitus ulcer with osteomyelitis complicated by acute blood loss anemia and acute kidney injury and metabolic encephalopathy Decision was made to make patient comfort measures only Currently patient is unresponsive, but still breathing, appears comfortable Continue hydromorphone as needed
--- NOTE | 2020-11-16 10:27 | PM.PNGS ---
Subjective Subjective Date of Service: 11/16/20 Interval history: No events reported Mental status remains the same Patient has been SALES ENABLEMENT SPECIALIST since yesterday Physical Exam Vital Signs: Vital Signs: Last Vital Signs Temp 97.6 F 11/15/20 09:50 Pulse 91 11/15/20 09:50 Resp 10 L 11/16/20 02:12 BP 106/55 L 11/15/20 09:50 Pulse Ox 97 11/15/20 07:22 Body Mass Index 23.8 Const: Other: Remains non communicative GI: Palpation (GI): Soft to palpation Back/Spine/Pelvis: Other: Open wound on the sacrococcygeal area examined - dressings dry, no bleeding, clean, no pus Progress Note: A&P Assessment and plan (1) Sacral decubitus ulcer, stage IV: Status: Acute Assessment and Plan: I have changed her dressings Dressings are dry No bleeding, some clots seen within wound bed Patient is now on SALES ENABLEMENT SPECIALIST Care as per medical service Fall Risk Details Current Medications: Current Medications Generic Name Dose Route Start Last Admin Trade Name Freq PRN Reason Stop Dose Admin Hydromorphone HCl 0.5 mg 11/15/20 14:21 Hydromorphone Hcl 0.5 Mg/0.5 Ml Syringe IVPUSH Q1H PRN Pain, Severe (Pain Scale 7-10) Hydromorphone HCl 0.5 mg 11/15/20 17:00 11/16/20 09:09 Hydromorphone Hcl 0.5 Mg/0.5 Ml Syringe IVPUSH Not Given Q3H [facility] Ondansetron HCl 4 mg 11/11/20 21:32 Ondansetron Hcl 4 Mg/2 Ml Vial IVPUSH Q8H PRN Nausea and Vomiting Pharmacy Consult 1 each 11/11/20 21:32 Consult Rx Vancomycin Dosing MISCELLANE DAILY PRN Consult order Sodium Chloride 3 ml 11/12/20 00:00 11/16/20 09:09 0.9 % Sodium Chloride Flush 3 Ml Syringe IVFLUSH 3 ml QSHIFT [facility] Administration Time Spent With Patient Time: Total time spent is greater than 50% in coordination of care (as documented) at patient's floor/unit and/or counseling patient: Time with patient: 15 - 24 minutes Procedures Date of Service Date of Service: 11/16/20
--- NOTE | 2020-11-16 10:43 | MHC.CLN ---
RE: CONSULT & F/U PT IS NOW ORACLE EBS ARCHITECT DIET RX: PUREED-APPROPRIATE WILL FOLLOW WITH CARE TEAM AND PROVIDE SUPPORT NEEDED
--- NOTE | 2020-11-16 10:50 | CONS_ITS ---
DATE OF SERVICE: 11/13/2020 REASON FOR CONSULTATION: Consult requested by the medical team to evaluate and help in management of patient with severe acute kidney injury. The patient is having altered mental status and has dementia and all the history was obtained from the patient's medical record. She is not able to give any history. She is a 80-year-old female with past medical history of dementia, diabetes, hyperlipidemia, hypertension, history of urinary incontinence, who was brought into the hospital by EMS after ELECTROLYSIS INVESTIGATOR stated the patient had altered mental status. Son apparently [place] out of the [place]. In the ER, the patient had a temperature of 103 degrees Fahrenheit. The patient is tachycardic. BUN and creatinine in the ER were 84 and 3.94, much higher than the past, baseline around 0.8 earlier this month. The patient had lactic acidosis. Lipase level was normal, but the albumin level was low at 1.9. A CT of the abdomen showed significant issues in the coccygeal area with possibility of osteomyelitis. This ulcer was covered with feces and necrotic tissue. REVIEW OF SYSTEMS: Difficult to obtain because of the patient's mental status. PAST MEDICAL HISTORY: History of dementia, diabetes, hyperlipidemia, hypertension, history of CVA, urinary incontinence, malnutrition, stage IV pressure ulcer in the coccygeal area. PERSONAL AND SOCIAL HISTORY: Exact history is not available. ALLERGIES: PATIENT HAS NO KNOWN DRUG ALLERGIES. HOME MEDICATIONS: Include amlodipine, aspirin, atorvastatin, cetirizine, glipizide, metoprolol succinate. PHYSICAL EXAMINATION: GENERAL: The patient is resting in the bed, lethargy, but arousable. VITAL SIGNS: Blood pressure was 129/67, pulse 91, afebrile. HEENT: Shows pupils equal, round and bilaterally reactive to light. No jugular venous distention. NECK: Supple. Mucosa dry. CARDIOVASCULAR SYSTEM: S1, S2 without rub. RESPIRATORY SYSTEM: Air entry decreased in the bases. ABDOMEN: Soft, nontender. Bowel sounds normal. EXTREMITIES: Showed no edema. There is no peripheral cyanosis or clubbing. LABORATORY DATA: Labs done today, sodium 141, potassium 4.0, chloride 115, CO2 12, BUN 88, creatinine 3.98, hemoglobin 9.2, hematocrit 28.2, WBC 10.4, platelets 89, glucose 58. Anion gap was normal. IMPRESSION: 1. A 80-year-old female with acute kidney injury. Acute kidney injury in this patient likely secondary to severe prerenal state/dehydration. It is unclear if the patient has sepsis-induced acute tubular injury. She did have a CT scan of the abdomen and pelvis without contrast, and the bladder was just decompressed, and there was no hydronephrosis or renal stones. I doubt the patient has acute GN/interstitial disease at this juncture. 2. Stage II chronic kidney disease at baseline. 3. Severe sepsis, gram-negative bacteremia. 4. Stage IV sacral decubitus ulcer. 5. Severe anion gap metabolic acidosis in the setting of renal failure, unclear if she had loose stools. 6. Urinary tract infection. RECOMMENDATIONS: At this juncture, I recommend checking spot urine for electrolytes, protein, creatinine. I agree with intravenous hydration with bicarb, patient is resting on D5 water with 150 mg of sodium bicarb at 100 mL/hour. Her Zosyn dose is appropriately dosed for her renal insufficiency. We should avoid using nephrotoxic agents and avoid hypotension. Hopefully, this patient's renal output increases and her creatinine continues to improve with hydration. She is a poor dialysis candidate, and I recommend continued discussion with the patient's family about goals of care. Thank you for allowing me to participate in medical management of the patient. MD ALBINO Vieira/LYNDSEY / [id number]
--- NOTE | 2020-11-16 11:58 | MHC.CM.PN ---
per multi dis rounds pt made counter help
[2020-11-17 01:15] VITALS: RESP 18
[2020-11-17] MEDS: HYDROmorphone HCl 0.5 MG/0.5 ML SYRINGE IVPUSH ×3 (01:15→15:36)
[2020-11-17] MEDS: 0.9 % Sodium Chloride Flush 3 ML SYRINGE IVFLUSH ×3 (01:15→15:37)
[2020-11-17 07:43] VITALS: RESP 10
--- NOTE | 2020-11-17 10:10 | HO.PM.IMPN ---
Subjective Subjective Date of Service: 11/17/20 Interval History: look scomfortable Cardiovascular Cardiovascular: Reports no additional cardiovascular complaints Gastrointestinal Gastrointestinal: Reports no additional gastrointestinal complaints Physical Exam Vital Signs: Vital Signs: Last Vital Signs Temp 97.6 F 11/15/20 09:50 Pulse 91 11/15/20 09:50 Resp 10 L 11/17/20 07:43 BP 106/55 L 11/15/20 09:50 Pulse Ox 97 11/15/20 07:22 Body Mass Index 23.8 General: appears comfortable Objective Data Current Medications Generic Name Dose Route Start Last Admin Trade Name Freq PRN Reason Stop Dose Admin Hydromorphone HCl 0.5 mg 11/15/20 14:21 11/17/20 01:15 Hydromorphone Hcl 0.5 Mg/0.5 Ml Syringe IVPUSH 0.5 mg Q1H PRN Administration Pain, Severe (Pain Scale 7-10) Ondansetron HCl 4 mg 11/11/20 21:32 Ondansetron Hcl 4 Mg/2 Ml Vial IVPUSH Q8H PRN Nausea and Vomiting Pharmacy Consult 1 each 11/11/20 21:32 Consult Rx Vancomycin Dosing MISCELLANE DAILY PRN Consult order Sodium Chloride 3 ml 11/12/20 00:00 11/17/20 07:40 0.9 % Sodium Chloride Flush 3 Ml Syringe IVFLUSH 3 ml QSHIFT [facility] Administration Labs CBC & Chem 7: 11/15/20 05:02 11/15/20 05:02 Microbiology Microbiology Results: Microbiology 11/11/20 16:58 Blood - Venous Blood Culture - Final Proteus mirabilis Streptococcus anginosus 11/11/20 16:57 Blood - Venous Blood Culture - Final Proteus mirabilis Streptococcus anginosus 11/14/20 01:18 Blood - Venous Blood Culture - Preliminary No growth after 48 hours. 11/14/20 01:18 Blood - Venous Blood Culture - Preliminary No growth after 48 hours. 11/11/20 Unknown Urine clean catch - Catheterized Urine Culture - Final Escherichia coli Assessment and Plan (1) Sepsis: Status: Acute (2) Osteomyelitis of sacrum: Status: Acute (3) Encephalopathy: Status: Acute (4) Acute UTI: Status: Acute (5) Proctitis: Status: Acute (6) Elevated troponin: Status: Acute (7) Malnutrition: Status: Acute (8) Lactic acidosis: Status: Acute (9) GENE (acute kidney injury): Status: Acute (10) Transaminitis: Status: Acute (11) Cholelithiasis: Status: Acute Assessment and Plan: This is an unfortunate 80-year-old female who presents from the home by her FACULTY PHYSICIAN with multiple issues as below Severe Sepsis, POA Proteus and GPC bacteremia likely from infected stage IV sacral decubitus ulcer with osteomyelitis complicated by acute blood loss anemia and acute kidney injury and metabolic encephalopathy Decision was made to make patient comfort measures only Currently patient is unresponsive, but still breathing, appears comfortable Continue hydromorphone as needed no changes, family was able to visit yesterday
--- NOTE | 2020-11-17 10:52 | PM.PNGS ---
Subjective Subjective Date of Service: 11/17/20 Interval history: no events reported one son apparently visited yesterday Physical Exam Vital Signs: Vital Signs: Last Vital Signs Temp 97.6 F 11/15/20 09:50 Pulse 91 11/15/20 09:50 Resp 10 L 11/17/20 07:43 BP 106/55 L 11/15/20 09:50 Pulse Ox 97 11/15/20 07:22 Body Mass Index 23.8 Const: Other: appears comfortable but still lehargic Back/Spine/Pelvis: Other: wound examined - minimal staining of blood on dressings, no active bleeding, some patchy areas of gangrene on upper part of wound bed Progress Note: A&P Assessment and plan (1) Sacral decubitus ulcer, stage IV: Status: Acute Assessment and Plan: dressings changed- no bleeding wet to dry applied 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 Fall Risk Details Current Medications: Current Medications Generic Name Dose Route Start Last Admin Trade Name Freq PRN Reason Stop Dose Admin Hydromorphone HCl 0.5 mg 11/15/20 14:21 11/17/20 01:15 Hydromorphone Hcl 0.5 Mg/0.5 Ml Syringe IVPUSH 0.5 mg Q1H PRN Administration Pain, Severe (Pain Scale 7-10) Ondansetron HCl 4 mg 11/11/20 21:32 Ondansetron Hcl 4 Mg/2 Ml Vial IVPUSH Q8H PRN Nausea and Vomiting Pharmacy Consult 1 each 11/11/20 21:32 Consult Rx Vancomycin Dosing MISCELLANE DAILY PRN Consult order Sodium Chloride 3 ml 11/12/20 00:00 11/17/20 07:40 0.9 % Sodium Chloride Flush 3 Ml Syringe IVFLUSH 3 ml QSHIFT [facility] Administration Time Spent With Patient Time: Total time spent is greater than 50% in coordination of care (as documented) at patient's floor/unit and/or counseling patient: Time with patient: 15 - 24 minutes Procedures Date of Service Date of Service: 11/17/20
[2020-11-17 12:20] VITALS: RESP 22
[2020-11-17 15:43] VITALS: RESP 10
[2020-11-18 00:06] VITALS: RESP 14
[2020-11-18] MEDS: HYDROmorphone HCl 0.5 MG/0.5 ML SYRINGE IVPUSH ×2 (00:06→12:20)
[2020-11-18] MEDS: 0.9 % Sodium Chloride Flush 3 ML SYRINGE IVFLUSH ×2 (00:07→09:47)
[2020-11-18 01:23] VITALS: RESP 12
--- NOTE | 2020-11-18 05:31 | PC.NURSE ---
Addendum entered by Concepcion Schroeder RN 11/18/20 06:01: @0553 Claims Supervisor called back elana Rocha as he said he would be coming in to visit early this AM after we updated him. His Tracy answered the phone and said they would not be coming this AM and stated it would be too much for us . Respiration rate is 14 at this time. Pt is resting comfortably with no signs of distress. Original Note: @ 0430 Pt's RR became uneven with occasional periods of apnea. Urine output from start of shift at 1945 to 0430 this AM noted to be 15ml. Claims Supervisor utilized to update elana Rocha.
--- NOTE | 2020-11-18 10:43 | HO.PM.IMPN ---
Subjective Subjective Date of Service: 11/18/20 Interval History: looks comfortable Cardiovascular Cardiovascular: Reports no additional cardiovascular complaints Gastrointestinal Gastrointestinal: Reports no additional gastrointestinal complaints Physical Exam Vital Signs: Vital Signs: Last Vital Signs Temp 97.6 F 11/15/20 09:50 Pulse 91 11/15/20 09:50 Resp 12 11/18/20 01:23 BP 106/55 L 11/15/20 09:50 Pulse Ox 97 11/15/20 07:22 Body Mass Index 23.8 General: no acute distress Objective Data Current Medications Generic Name Dose Route Start Last Admin Trade Name Freq PRN Reason Stop Dose Admin Hydromorphone HCl 0.5 mg 11/15/20 14:21 11/18/20 00:06 Hydromorphone Hcl 0.5 Mg/0.5 Ml Syringe IVPUSH 0.5 mg Q1H PRN Administration Pain, Severe (Pain Scale 7-10) Ondansetron HCl 4 mg 11/11/20 21:32 Ondansetron Hcl 4 Mg/2 Ml Vial IVPUSH Q8H PRN Nausea and Vomiting Pharmacy Consult 1 each 11/11/20 21:32 Consult Rx Vancomycin Dosing MISCELLANE DAILY PRN Consult order Sodium Chloride 3 ml 11/12/20 00:00 11/18/20 09:47 0.9 % Sodium Chloride Flush 3 Ml Syringe IVFLUSH 3 ml QSHIFT [facility] Administration Labs CBC & Chem 7: 11/15/20 05:02 11/15/20 05:02 Microbiology Microbiology Results: Microbiology 11/11/20 16:58 Blood - Venous Blood Culture - Final Proteus mirabilis Streptococcus anginosus 11/11/20 16:57 Blood - Venous Blood Culture - Final Proteus mirabilis Streptococcus anginosus 11/14/20 01:18 Blood - Venous Blood Culture - Preliminary No growth after 48 hours. 11/14/20 01:18 Blood - Venous Blood Culture - Preliminary No growth after 48 hours. 11/11/20 Unknown Urine clean catch - Catheterized Urine Culture - Final Escherichia coli Assessment and Plan (1) Sepsis: Status: Acute (2) Osteomyelitis of sacrum: Status: Acute (3) Encephalopathy: Status: Acute (4) Acute UTI: Status: Acute (5) Proctitis: Status: Acute (6) Elevated troponin: Status: Acute (7) Malnutrition: Status: Acute (8) Lactic acidosis: Status: Acute (9) GENE (acute kidney injury): Status: Acute (10) Transaminitis: Status: Acute (11) Cholelithiasis: Status: Acute Assessment and Plan: This is an unfortunate 80-year-old female who presents from the home by her CDL A DRIVER with multiple issues as below appears comfortable Severe Sepsis, POA Proteus and GPC bacteremia likely from infected stage IV sacral decubitus ulcer with osteomyelitis complicated by acute blood loss anemia and acute kidney injury and metabolic encephalopathy Decision was made to make patient comfort measures only Currently patient is unresponsive, but still breathing, appears comfortable Continue hydromorphone as needed no changes, family was able to visit 11/16
--- NOTE | 2020-11-18 13:52 | MHC.CM.PN ---
CM note Female 80 DX Osteo . On 11/15/20 the patient was started on PROGRAM AND RESEARCH COORDINATOR. CM will continue to follow.
--- NOTE | 2020-11-18 15:16 | PM.DDS ---
Discharge Sum: Prov Provider Primary care physician: Mohsen Physician Consults: 11/12/20 06:23 Consult to General Surgery Routine Consulting Provider: Renata Shahid Reason for consultation: Coccygeal ulcer with suspected osteo Has provider been notified: Yes Consult to Infectious Diseases Routine Consulting Provider: Cele Weathers Reason for consultation: osteomeylitis Has provider been notified: No 11/12/20 13:04 Consult to Wound Care Provider Routine Consulting Provider: [facility] [place] Wound Care Management Reason for consultation: multiple decubitus ulcers - sacral, b/l heels 11/12/20 17:24 Consult to General Surgery Routine Consulting Provider: [facility] [place] General Surgeons Reason for consultation: pt needs debridement in OR of sacral wound. 11/13/20 07:49 Consult to Nephrology Routine Consulting Provider: Richard Thayer Reason for consultation: GENE, metabolic acidosis Has provider been notified: No Discharge Sum: Diag Contributing Factors (1) Sepsis: (2) Osteomyelitis of sacrum: (3) Encephalopathy: (4) Acute UTI: (5) Proctitis: (6) Elevated troponin: (7) Malnutrition: (8) Lactic acidosis: (9) GENE (acute kidney injury): (10) Transaminitis: (11) Cholelithiasis: Discharge Sum: Summary Date and Time Date of admission: 11/11/20 21:23 Date of : 11/18/20 Time of : 15:15 Summary Details: Patient was admitted for sepsis due to decubitus ulcer due to underlying dementia. She was initially treated with IV antibiotics but due to poor prognosis and poor quality of life decision was made to make comfort measures only. Patient peacefully on 11/18/2020 at 15:15 Additional Data Attending physician: Spencer Trevino MD
== END 2020-11-18 17:39 | disposition expired | DRG 853 ==
LOC: HO.ED 19:02 → HO.IMC 22:11
PROVIDERS: Family Medicine; Internal Medicine Nephrology; Surgery; Admitting Provider Internal Medicine; Emergency Provider Emergency Medicine; Visit Provider Internal Medicine
PROC: 0QB10ZZ Excision of Sacrum, Open Approach (ICD-10-PCS; principal; 2020-11-13 13:20)
DX: A41.9 Sepsis, unspecified organism (principal); L89.154 Pressure ulcer of sacral region, stage 4; E43 Unspecified severe protein-calorie malnutrition; G92 Toxic encephalopathy; N39.0 Urinary tract infection, site not specified; M86.9 Osteomyelitis, unspecified; N17.9 Acute kidney failure, unspecified; I96 Gangrene, not elsewhere classified; E87.2 Acidosis; K80.20 Calculus of gallbladder without cholecystitis without obstruction; L89.610 Pressure ulcer of right heel, unstageable; R74.01 Elevation of levels of liver transaminase levels; E86.0 Dehydration; B96.20 Unspecified Escherichia coli [E. coli] as the cause of diseases classified elsewhere; F03.90 Unspecified dementia, unspecified severity, without behavioral disturbance, psychotic disturbance, mood disturbance, and anxiety; R65.20 Severe sepsis without septic shock; K62.89 Other specified diseases of anus and rectum; Z20.822 Contact with and (suspected) exposure to COVID-19; Z68.23 Body mass index [BMI] 23.0-23.9, adult; Z79.82 Long term (current) use of aspirin; Z79.899 Other long term (current) drug therapy; Z66 Do not resuscitate; Z51.5 Encounter for palliative care
CPT/HCPCS: 0241U; 36415; 71045; 74176; 76705; 80048; 80053; 80076; 80143; 80179; 80320; 81001; 81003; 82272; 82550; 82693; 82803; 82947; 83605; 83690; 83735; 84156; 84300; 84484; 85007; 85025; 85027; 85060; 85610; 85652; 86140; 86850; 86900; 86923; 87040; 87077; 87086; 87088; 87186; 87205; 88304; 93005; 99024; 99225; 99284; 99285; C1758; J0690; J0878; J1170; J1940; J2270; J2405; J2543; J3010; J3370; P9016; P9017; P9035; P9040